=== PATIENT | female | born 1945 | race Caucasian/White ===

== ENCOUNTER 2019-12-27 09:47 | Outpatient (CLI) | payer MEDICARE, SELFPAY ==
--- NOTE | ~2019-12-27 | MM_ITS ---
EXAMINATION: MM screening luis BI w buster HISTORY: Screening mammogram, family history of breast cancer in her mother and sister. TECHNIQUE: Craniocaudal and mediolateral oblique 3-D tomosynthesis images were obtained and synthetic 2-D images were generated. CAD analysis was submitted and interpreted. COMPARISON: 11/08/2018, 05/05/2018, 10/06/2017, 09/24/2016 BREAST PARENCHYMAL COMPOSITION: There are scattered areas of fibroglandular density. FINDINGS: There is no evidence of suspicious mass, calcification, or architectural distortion to sugg est malignancy in either breast. There has been no suspicious interval change. IMPRESSION: 1. No mammographic evidence of malignancy. 2. Recommend routine screening mammography in one year. BI-RADS Category 1: Negative Reviewed, dictated and finalized at location A.
== END 2019-12-27 09:48 | disposition home or self-care (01) ==
LOC: ANHIMG 09:51
PROVIDERS: PCP Internal Medicine; Visit Provider Student in an Organized Health Care Education/Training Program
DX: Z12.31 Encounter for screening mammogram for malignant neoplasm of breast (principal)
CPT/HCPCS: 77063; 77067

== ENCOUNTER 2020-01-10 13:18 | Outpatient (CLI) | payer MEDICARE, SELFPAY ==
--- NOTE | ~2020-01-10 | US_ITS ---
US pelvic complete 01/10/2020 13:49 Indication: Abdominal discomfort and bloating. Post hysterectomy. Procedure: High-resolution ultrasound of the pelvis. Comparison: No prior studies for comparison. Findings: Uterus and ovaries are surgically absent. No abnormal pelvic masses or fluid collections. N o free fluid. Impression: 1: Unremarkable pelvic ultrasound post hysterectomy. Reviewed, dictated and finalized at location A. Impression: 1: Unremarkable pelvic ultrasound post hysterectomy.
== END 2020-01-10 13:19 | disposition home or self-care (01) ==
PROVIDERS: PCP Internal Medicine
DX: R14.0 Abdominal distension (gaseous) (principal); R10.9 Unspecified abdominal pain
CPT/HCPCS: 76856

== ENCOUNTER 2020-04-15 14:47 | Outpatient (CLI) | payer MEDICARE, SELFPAY ==
--- NOTE | ~2020-04-15 | XR_ITS ---
EXAMINATION: XR hand BI arthritis min 3V EXAM DATE: 04/15/2020 15:21 INDICATION: Bilateral hand pain, osteoarthritis. TECHNIQUE: Right hand frontal, lateral and oblique projections obtained and reviewed. Left hand fron farhan, lateral and oblique projections obtained and reviewed. Catchers projection of both hands. There is no prior study for comparison. FINDINGS: There is mild to moderate polyarticular bilateral distal interphalangeal and right 4th prox imal interphalangeal joint primary osteoarthritis. Otherwise mild polyarticular osteoarthritis. 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 There are no bony erosions identified. There are no acute fractures or dislocations identified. There is no subcutaneous gas. The soft tis fran is unremarkable. There are no radiopaque foreign bodies. 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 Reviewed, dictated and finalized at location A. 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
== END 2020-04-15 14:48 | disposition home or self-care (01) ==
LOC: ANHIMG 14:52
PROVIDERS: PCP Internal Medicine; Visit Provider Plastic Surgery
DX: M19.041 Primary osteoarthritis, right hand (principal); M19.042 Primary osteoarthritis, left hand
CPT/HCPCS: 73130

== ENCOUNTER 2021-01-13 14:52 | Outpatient (CLI) | payer MEDICARE, SELFPAY ==
--- NOTE | ~2021-01-13 | DEXA_ITS ---
Bone Density Report Name: Estefany Busby Age: 75 Sex: Female Ethnicity: White Date of : 1945 Indication: postmenopausal; height loss; hysterectomy; Referring Provider: Glenda Arias Study: Bone densitometry was performed. Exam Date: January 13, 2021 Accession number: [id number] Bone Density: Region BMD T-score Z-score Classification AP Spine (L1-L4) 1.042 0.0 2.5 Normal Femoral Neck (Left) 0.802 -0.4 1.8 Normal Total Hip (Left) 0.939 0.0 1.9 Normal Total Hip Bilateral Avg 0.939 0.0 1.9 Normal Femoral Neck (Right) 0.766 -0.7 1.5 Normal Total Hip (Right) 0.938 0.0 1.9 Normal World Health Organization criteria for BMD impression classify patients as: Normal (T-score at or above -1.0), Osteopenia (T-score between -1.0 and -2.5), or Osteoporosis (T-score at or below -2.5). 10-year Fracture Risk: FRAX not reported because: All T-scores for Spine Total, Hip Total, Femoral Neck at or above -1.0 Previous Exams: Region Exam Age BMD T-score BMD Change BMD Change Date g/cm2 vs Baseline vs Previous AP Spine(L1-L4) 01/13/2021 75 1.042 0.0 -0.037(-3.4%)# 0.079(8.2%)* 10/06/2017 72 0.963 -0.8 -0.116(-10.8%) 0.066(7.4%)# 08/17/2013 68 0.896 -1.4 -0.183(-16.9%) 0.005(0.6%) 09/11/2011 66 0.891 -1.4 -0.188(-17.4%) -0.101(-10.1%) 05/23/2009 64 0.992 -0.5 -0.087(-8.1%)* 0.013(1.3%) 04/25/2007 62 0.979 -0.6 -0.100(-9.3%)* -0.019(-1.9%) 02/24/2005 59 0.998 -0.4 -0.081(-7.5%)* -0.081(-7.5%)* 02/10/2003 57 1.079 0.3 Total Hip(Left) 01/13/2021 75 0.939 0.0 -0.067(-6.7%)# 0.017(1.8%) 10/06/2017 72 0.923 -0.2 -0.084(-8.3%)# 0.024(2.6%) 09/20/2015 70 0.899 -0.4 -0.108(-10.7%) 0.021(2.4%)# 08/17/2013 68 0.877 -0.5 -0.129(-12.8%) -0.034(-3.7%)* 09/11/2011 66 0.911 -0.3 -0.095(-9.5%)# 0.000(0.0%)# 05/23/2009 64 0.911 -0.3 -0.095(-9.5%)* 0.001(0.1%) 04/25/2007 62 0.910 -0.3 -0.096(-9.6%)* -0.065(-6.7%)* 02/24/2005 59 0.975 0.3 -0.031(-3.1%)* -0.031(-3.1%)* 02/10/2003 57 1.006 0.5 Total Hip(Right) 01/13/2021 75 0.938 0.0 -0.091(-8.8%)# 0.042(4.7%)* 10/06/2017 72 0.896 -0.4 -0.133(-12.9%) 0.014(1.6%) 09/20/2015 70 0.881 -0.5 -0.147(-14.3%) -0.055(-5.8%)# 08/17/2013 68 0.936 -0.1 -0.093(-9.0%)# 0.003(0.3%) 09/11/2011 66 0.933 -0.1 -0.095(-9.3%)# 0.034(3.8%)# 05/23/2009 64 0.899 -0.4 -0.129(-12.6%) -0.029(-3.1%)* 04/25/2007 62 0.928 -0.1 -0.100(-9.7%)* -0.053(-5.4%)* 02/24/2005 59 0.981 0.3 -0.048(-4.6%)* -0.048(-4.6%)* 02/10/2003 57 1.028 0.7
--- NOTE | ~2021-01-13 | MM_ITS ---
EXAMINATION: MM screening luis BI w buster HISTORY: Screening TECHNIQUE: Craniocaudal and mediolateral oblique 3-D tomosynthesis images were obtained and synthetic 2-D images were generated. CAD analysis was submitted and interpreted. COMPARISON: Comparison to multiple prior studies sequentially, with oldest reviewed study dated 09/19. BREAST PARENCHYMAL COMPOSITION: There are scattered areas of fibroglandular density. FINDINGS: There are developing asymmetries in the left breast. The right breast is stable without lukas dence for malignancy. IMPRESSION: 1. Developing left breast asymmetries. 2. Additional mammographic views and possible breast ultrasound are recommended. BI-RADS Category 0: Incomplete: Needs additional imaging evaluation. Reviewed, dictated and finalized at location A. IMPRESSION: 1. Developing left breast asymmetries. 2. Additional mammographic views and possible breast ultrasound are recommended . BI-RADS Category 0: Incomplete: Needs additional imaging evaluation.
== END 2021-01-13 14:53 | disposition home or self-care (01) ==
LOC: ANHIMG 14:53
PROVIDERS: PCP Internal Medicine; Visit Provider Student in an Organized Health Care Education/Training Program
DX: Z12.31 Encounter for screening mammogram for malignant neoplasm of breast (principal); Z78.0 Asymptomatic menopausal state; R92.8 Other abnormal and inconclusive findings on diagnostic imaging of breast
CPT/HCPCS: 77063; 77067; 77080

== ENCOUNTER 2021-02-04 12:10 | Outpatient (CLI) | payer MEDICARE, SELFPAY ==
--- NOTE | ~2021-02-04 | MMUS_ITS ---
EXAMINATION: MM diagnostic luis LT w buster, US breast LT limited HISTORY: Left breast asymmetry on screening mammogram TECHNIQUE: Additional 3-D tomosynthesis images of the left breast were performed and synthetic 2-D im ages were generated. CAD analysis was submitted and interpreted. High resolution limited left breast ultrasound was performed. COMPARISON: 01/13/2021, 12/27/2019, 11/08/2018, 05/05/2018, 10/06/2017 BREAST PARENCHYMAL COMPOSITION: There are scattered areas of fibroglandular density. FINDINGS: MAMMOGRAPHIC FINDINGS: A subtle asymmetry persists in the middle third of the slightly outer breast 3 cm from the nipple on the craniocaudal view. ULTRASOUND: There is an 8 mm x 4 mm oval, circumscribed, parallel, hypoechoic mass with no posterior features or internal vascularity at the 2:00 location 3 cm from the nipple. An 8 mm x 4 mm mass with similar sono graphic features is seen at the 2:00 location near the nipple. IMPRESSION: 1. Probably benign left breast masses. 2. Recommend 6 month follow-up left diagnostic mammogram and ultrasound. BI-RADS category 3, probably benign findings. Reviewed, dictated and finalized at location A. IMPRESSION: 1. Probably benign left breast masses. 2. Recommend 6 month follow-up left diagnostic mammogram and ultrasound. BI-RADS category 3, probably benign findings.
== END 2021-02-04 12:11 | disposition home or self-care (01) ==
LOC: ANHIMG 12:11
PROVIDERS: PCP Internal Medicine; Visit Provider Student in an Organized Health Care Education/Training Program
DX: R92.8 Other abnormal and inconclusive findings on diagnostic imaging of breast (principal)
CPT/HCPCS: 76642; 77061; 77065; G0279

== ENCOUNTER → 2021-09-04 14:05 | Outpatient (CLI) | payer MEDICARE, SELFPAY ==
--- NOTE | ~2021-09-04 | XR_ITS ---
EXAMINATION: XR hip RT min 2V DATE: 09/04/2021 14:42 INDICATION: Right hip pain. TECHNIQUE: 2 views of right hip were obtained. COMPARISON: Right hip radiographs 09/20/2014 FINDINGS: Bone alignment is normal. There is severe lumbar spondylosis. No fracture. There is severe right hip osteoarthritis. IMPRESSION: 1. Severe right hip osteoarthritis. Reviewed, dictated and finalized at location A.
== END ==
PROVIDERS: PCP Internal Medicine; Visit Provider Nurse Practitioner
DX: M16.11 Unilateral primary osteoarthritis, right hip (principal)
CPT/HCPCS: 73502

== ENCOUNTER 2022-07-10 10:25 | Outpatient (CLI) | payer MEDICARE, SELFPAY ==
--- NOTE | ~2022-07-10 | XR_ITS ---
Supine and upright views of the abdomen Clinical history: Bloating Findings: Bowel gas pattern is nonspecific. No evidence for obstruction or free air. No abnormal mass lesion or calcification is seen. Degenerative change of the lumbar spine and bilateral hips noted. Impression: Nonspecific bowel gas pattern. Reviewed, dictated and finalized at [facility]. NCE WRITER Impression: Nonspecific bowel gas pattern.
== END 2022-07-10 10:26 | disposition home or self-care (01) ==
PROVIDERS: PCP Internal Medicine; Visit Provider Nurse Practitioner Family
DX: R19.5 Other fecal abnormalities (principal); R19.4 Change in bowel habit; K21.9 Gastro-esophageal reflux disease without esophagitis; K92.89 Other specified diseases of the digestive system
CPT/HCPCS: 74018

== ENCOUNTER 2023-09-06 11:07 | Outpatient (CLI) | payer MEDICARE, SELFPAY ==
--- NOTE | ~2023-09-06 | US_ITS ---
EXAMINATION: US venous doppler LE RT DATE: 09/06/2023 11:44 INDICATION: Right lower limb pain and swelling TECHNIQUE: Grayscale ultrasound images without and with compression and Doppler ultrasound images of the right lower extremity veins were obtained. COMPARISON: None. FINDINGS: The visualized portions of right common femoral vein, profunda (deep) femoral vein, femoral vein, pop liteal vein, posterior tibial veins, peroneal veins, gastrocnemius vein and greater saphenous vein ou tflow are patent. IMPRESSION: 1. No deep venous thrombosis in the right lower limb. Reviewed, dictated and finalized at location A.
== END 2023-09-06 11:08 | disposition home or self-care (01) ==
LOC: ANHIMG 11:10
PROVIDERS: PCP Family Medicine; Visit Provider Physician Assistant Surgical
DX: R22.41 Localized swelling, mass and lump, right lower limb (principal)
CPT/HCPCS: 93971

== ENCOUNTER 2023-11-22 08:52 | Outpatient (CLI) | payer MEDICARE, SELFPAY ==
--- NOTE | ~2023-11-22 | DEXA_ITS ---
Bone Density Report Name: CHICHO AJ Age: 78 Sex: Female Ethnicity: White Date of : 1945 Indication: postmenopausal; screening for osteoporosis; height loss; history of glucocorticoids; hysterectomy; Referring Provider: MICHAEL ZAMBRANO Study: Bone densitometry was performed. Exam Date: November 22, 2023 Accession number: [id number] Bone Density: Region BMD T-score Z-score Classification AP Spine(L1-L4) 1.091 0.4 3.1 Normal Femoral Neck (Left) 0.796 -0.5 1.9 Normal Total Hip (Left) 1.000 0.5 2.6 Normal Femoral Neck (Right) 0.741 -1.0 1.4 Normal Total Hip (Right) 1.025 0.7 2.8 Normal Total Hip Mean 1.013 0.6 2.7 Normal World Health Organization criteria for BMD impression classify patients as: Normal (T-score at or above -1.0), Osteopenia (T-score between -1.0 and -2.5), or Osteoporosis (T-score at or below -2.5). 10-year Fracture Risk: FRAX not reported because: All T-scores for Spine Total, Hip Total, Femoral Neck at or above -1.0 Previous Exams: Region Exam Age BMD T-score BMD Change BMD Change Date g/cm2 vs Baseline vs Previous AP Spine (L1-L4) 11/22/2023 78 1.091 0.4 0.200 (22.4%)# 0.049 (4.7%)* 01/13/2021 75 1.042 0.0 0.151 (16.9%)# 0.079 (8.2%)* 10/06/2017 72 0.963 -0.8 0.072 (8.0%)# 0.072 (8.0%)# 09/11/2011 66 0.891 -1.4 Total Hip(Left) 11/22/2023 78 1.000 0.5 0.089 (9.7%)# 0.060 (6.4%)* 01/13/2021 75 0.939 0.0 0.028 (3.1%)# 0.017 (1.8%) 10/06/2017 72 0.923 -0.2 0.011 (1.3%)# 0.024 (2.6%) 09/20/2015 70 0.899 -0.4 -0.012 (-1.4%) -0.012 (-1.4%) 09/11/2011 66 0.911 -0.3 Total Hip(Right) 11/22/2023 78 1.025 0.7 0.092 (9.9%)# 0.088 (9.4%)* 01/13/2021 75 0.938 0.0 0.005 (0.5%)# 0.042 (4.7%)* 10/06/2017 72 0.896 -0.4 -0.038 (-4.0%) 0.014 (1.6%) 09/20/2015 70 0.881 -0.5 -0.052 (-5.6%) -0.052 (-5.6%) 09/11/2011 66 0.933 -0.1 *Denotes significance at 95% confidence level, LSC for AP Spine = 0.022 g/cm2, LSC for Total Hip = 0.027 g/cm2 # Denotes dissimilar scan types or analysis methods Clinical Information Provided by Patient: Has taken Glucocorticoids Has used the following medications: Vitamin D, Calcium Has the following medical conditions: Hysterectomy Patient maximum height was 66.0 Onset of menses at age 8 Number of children 2 Impression: The patient has normal bone mass. The patient has risk factors,
== END 2023-11-22 08:53 | disposition home or self-care (01) ==
LOC: ANHIMG 08:53
PROVIDERS: PCP Family Medicine; Visit Provider Family Medicine
DX: Z13.820 Encounter for screening for osteoporosis (principal); Z78.0 Asymptomatic menopausal state
CPT/HCPCS: 77080

== ENCOUNTER 2024-11-09 12:30 | Outpatient (RCR) | payer MEDICARE, SELFPAY ==
--- NOTE | 2024-10-03 14:11 | OPREHPOC ---
Outpatient Therapy Plan of Care This is a Multidisciplinary Plan of Care that may contain components documented by all disciplines (PT, OT, and ST.) PT Problem 1 PT Problem #1 Knowledge Deficit PT Goal 1 Goal / Goal Update *independent with HEP Target Visit 8 PT Problem 2 PT Problem #2 Impaired Strength PT Goal 1 Goal / Goal Update increase hip strength, to improve stability to hip joint and improve gait pattern 1* R & L hip extension strength of 4+/5 2* R & L hip abduction strength of 4+/5 3* increase 2 minute walking test distance to 450' Target Visit 8 PT Problem 3 PT Problem #3 Impaired Flexibility PT Goal 1 Goal / Goal Update *increase anterior hip-quad flexibility to decrease pull on anterior hip prone knee flexion 1* R 110' 2* L 115' Target Visit 8
--- NOTE | 2024-10-03 14:11 | PTOPEVAL1 ---
Assessment and note entered by Elizabeth Hernandez, PT Evaluation Information Assessment Status Evaluation ICD-10 Condition Codes (PT) Pain in right hip M25.551 Onset August 2024 Subjective Information more pain in hips after vacation and walking more; bilateral hip pain, R > L x rays ---severe degenerative changes in both hips history of chronic back pain and surgery; go to chiropractor for back traction, usually go about 1x/month activity: started using the wheeled walker a few weeks ago in the house PRN and hip pain is less; independent with light home and self care tasks; does shopping, drives; have basement at home, do not go down there; Reported Pain Level Pain Score 4: Self Report Additional Pain Score Comments pain range of the past week 2-12/10; R anterior hip /groin and L lateral hip and buttocks areas pain in both hips R > L increase pain: walking/standing activity 2 hours; decrease pain: biofreeze, sit/rest, tylenol; heating pad can sleep through the night; problems getting comfortable to fall asleep, tend to sleep on her side with pillow between legs Assessment PT Clinical Summary Estefany has the diagnosis of R hip pain. She also has L hip pain and chronic back pain. She is active and walking and standing are now limited due to more hip pain. Self assessment with LE functional scale rating of 58% limitation in activity level. xray report states severe degenerative changes in both hips. The dr has talked with her about THR, but she wants to hold off on surgery until winter time. With the evaluation: she has decreased strength of bilateral hip abduction and extension muscles; decreased flexibility of anterior hip-quads muscles with prone knee flexion and 2 minute walking test distance of 400'; she does not do any leg exercises at home. Skilled PT services are indicated for modalities PRN to decrease pain; therapeutic exercises to increase strength and flexibility of hips and education for HEP. Plan of Care Interventions Electrical Stimulation,Hot Pack/Cold Pack,Manual Therapy,Neuro Re-education,Patient/Caregiver Education,Therapeutic Activities,Therapeutic Exercise,Ultrasound,Other Other Interventions taping PT Services Indicated Yes Treatment Frequency and 1-2x/wk for 8 visits Duration These treatments will address the objective and functional deficits as defined above. The patient will be advanced safely and appropriately in order for the patient to progress towards his/her prior level of function. Additional exercises will be introduced and as well as a comprehensive home exercise program upon discharge, if needed, ?to ensure carryover of functional gains achieved in the clinic. This treatment plan has been reviewed and agreement upon by the patient.
--- NOTE | 2024-11-09 13:02 | OPREHPOC ---
Outpatient Therapy Plan of Care This is a Multidisciplinary Plan of Care that may contain components documented by all disciplines (PT, OT, and ST.) PT Problem 1 PT Problem #1 Knowledge Deficit PT Goal 1 Goal / Goal Update *independent with HEP 11-09-24 d/c goal met Target Visit 8 Progress Met PT Problem 2 PT Problem #2 Impaired Strength PT Goal 1 Goal / Goal Update increase hip strength, to improve stability to hip joint and improve gait pattern 1* R & L hip extension strength of 4+/5 2* R & L hip abduction strength of 4+/5 3* increase 2 minute walking test distance to 450' 11-09-24 d/c goals met Target Visit 8 Progress Met PT Problem 3 PT Problem #3 Impaired Flexibility PT Goal 1 Goal / Goal Update *increase anterior hip-quad flexibility to decrease pull on anterior hip prone knee flexion 1* R 110' 2* L 115' 11-09-24 d/c goals met Target Visit 8 Progress Met
--- NOTE | 2024-11-09 13:02 | PTOPDC ---
Assessment and note entered by Elizabeth Hernandez, PT Assessment Status Discharge ICD-10 Condition Codes (PT) Pain in right hip M25.551,Pain in left hip M25.552 Onset August 2024 Subjective Information am stronger, doing the exercises at home; have Dr appt in December and going to schedule the THR then; use cane or rollator with walking; Reported Pain Level Pain Score Self Report Additional Pain Score Comments pain range in the past week - 11/09 Assessment PT Clinical Summary Estefany has received 8 PT sessions. Compared to the initial evaluation: pain from 06-10 to -11/09; LE functional scale rating from 58 to 69% limitation in activity level; increase strength of R and L hips; increase flexibility of R and L anterior hip-quad; 2 minute walking test distance from 400' to 470'; education for HEP. The goals were achieved. Discharge PT. She is to continue with her HEP and walking as tolerated with hip pain. Plan of Care PT Services Indicated No
--- NOTE | 2024-11-09 13:04 | PCPTNOTE ---
pt requested a shorter session today due to having a refrigerator repair man scheduled to come to her house.
== END 2024-11-09 14:48 | disposition home or self-care (01) ==
LOC: ANHPT 12:30
PROVIDERS: PCP Family Medicine; Visit Provider Orthopaedic Surgery
DX: M25.551 Pain in right hip (principal)
CPT/HCPCS: 97110; 97140; 97161; 97530

== ENCOUNTER 2025-02-15 09:57 | Outpatient (CLI) | payer MEDICARE, SELFPAY ==
--- OUTSIDE RECORDS SUMMARY | 2008-11-21 03:30 | XMS_ITS | Continuity of Care Document ---
Author Organization [facility] Address [address] [place] [address] Phone Care Team Providers Care Mental Health Program Specialist Name Role Phone Trevorsonu Medardo Unavailable Unavailable Procedures Procedure Date Office/outpatient Visit, Est No Script Office/outpatient Visit, Est Eye Exam Established Pt Advance Directives Directive Yes / No Effective Date File Name No Information Encounters Encounter Description Practice Location Reason(s) For Visit Diagnoses Date Provider Providers Copied on Encounter Office/outpat ient Visit, Est [facility], [address] [place] [address] [address], [place], [place], [id number], [place] tel:[phone] SEC [facility] No Information 2 9 Rim[address] Batres. [facility] [address] , [address], [place], [place], [facility], [place]. tel:[phone] Office/outpat ient Visit, Est [facility], [address], [place], [place], [id number], [place] tel:[phone] [facility] No Information [address] [facility] [address], [place], [place], [facility], [place]. tel:[phone] [facility], [address], [place], [place], [id number], [place] tel:[phone] [facility] No Information [address] , [address], [place], [address], [place]. tel:[phone] Family History Family Member Type Diagnosis Age At Onset No Information Payers Payer name Insurance type Covered republican ID Authoriza tion(s) [place] [id number] Social History Type Description Quantity Date Captured [...]
--- OUTSIDE RECORDS SUMMARY | 2025-01-15 10:50 | XMS_ITS ---
Author Organization [facility] Address [address] [place], [place] [id number] Care Team Providers Care Cream Cheese Maker Name Role Phone PERNELL MARTE Unavailable [phone] Terrance Suárez Unavailable Unavailable Allergies No Known [...] Delayed Release Oral Capsule [Nexium] *Reorder from [facility] for eRx and Interaction Alerts* 017 Active cyclosporine 0.5 MG/ML Ophthalmic Suspension [Restasis] cyclosporine 0.5 MG/ML Ophthalmic Suspension [Restasis]Original Medicationcyclosporine 0.5 MG/ML Ophthalmic Suspension [Restasis] *Reorder from [facility] for eRx and Interaction Alerts* 017 Active ciclopirox 80 MG/ML Topical Solution ciclopirox 80 MG/ML Topical SolutionOriginal Medicationciclopirox 80 MG/ML Topical Solution *Reorder from [facility] for eRx and Interaction Alerts* 017 Active Bifidobacterium infantis 4 MG Oral Capsule [Align] ORAL Bifidobacterium infantis 4 M G Oral Capsule [Align]Original MedicationBifidobacterium infantis 4 MG Oral Capsule [Align] *Reorder from [facility] for eRx and Interaction Alerts* 017 Active aspirin 81 MG Delayed Release Oral Tablet ORAL aspirin 81 MG Delayed Releas e Oral TabletOriginal Medicationaspirin 81 MG Delayed Release Oral Tablet *Reorder from [facility] for eRx and Interaction Alerts* 017 Active Progesterone 200 MG Oral Capsule ORAL progesterone 200 MG Oral CapsuleOriginal Medicationprogesterone 200 MG Oral Capsule *Reorder from [facility] for eRx and Interaction Alerts* 017 Active hydroCHLOROthiazide 12.5 MG Oral Capsule ORAL hydrochlorothiazide 12.5 MG Oral CapsuleOriginal Medicationhydrochlorothiazide 12.5 MG Oral Capsule *Reorder from [facility] for eRx and Interaction Alerts* 017 Active Losartan Potassium 25 MG Oral Tablet ORAL losartan potassium 25 MG Ora l TabletOriginal Medicationlosartan potassium 25 MG Oral Tablet *Reorder from [facility] for eRx and Interaction Alerts* 017 Active Pravastatin Sodium 20 MG Oral Tablet ORAL pravastatin sodium 20 MG Ora l TabletOriginal Medicationpravastatin sodium 20 MG Oral Tablet *Reorder from [facility] for eRx and Interaction Alerts* 017 Active Estradiol 2 MG Oral Tablet ORAL estradiol 2 MG Oral TabletOriginal Medicationestradiol 2 MG Oral Tablet *Reorder from [facility] for eRx and Interaction Alerts* 017 Active Ciclopirox 8 % 1 application Externally Once a day to toenails.; Duration: 30 days Remove medication once a week with rubbing alcohol. one bottle, 6.6mL or similar. 025 2025 Active olopatadine 2 MG/ML Ophthalmic Solution [Pataday] olopatadine 2 MG/ML Ophthalm ic Solution []Original Medicationolopatadine 2 MG/ML Ophthalmic Solution [] *Reorder from [facility] for eRx and Interaction Alerts* 017 Active liothyronine sodium 0.005 MG Oral Tablet ORAL liothyronine sodium 0.005 MG Oral TabletOriginal Medicationliothyronine sodium 0.005 MG Oral Tablet *Reorder from [facility] for eRx and Interaction Alerts* 017 Active Vital Signs Height 64.00 in 01/15/2025 Weight 170 lbs 01/15/2025 BMI 29.18 kg/m2 01/15/2025 Height-cm 162.56 cm 01/15/2025 Weight-kg 77.11 kg 01/15/2025 Encounters Encounter Location Date Provider Diagnosis [facility] [address] [place], [place] [id number] 01/15/2025 PERNELL MARTE Idiopathic gout, rig ht [...] Date Stop Date Notes Ciclopirox 8 % 1 application Asset Coordinator ally Once a day to toenails.; Duration: 30 [...] lab work over the phone (Uric Acid) Progress Notes * CHIKA AJNE SDOB:1945 (79 yo F)Acc No.[id number]:01/15/2025 Progress Notes Patient: CHICHO ARANA Provider: Kenyon Marte DPM :1945 A ge:79 Y S ex:Female Date:01/15/2025 Address:[address] [place] [address] Subjective: * Chief Complaints: * 1 . The patient had a sudden onset of a red, hot, swollen, and painful right great toe joint. No history of accident or injury. She has had similar pain and redness in her finger. She denies any history of gout, but does take a diuretic. * HPI: H PI: New Complaint Kenneth corona was last seen in our practice over three years ago. , Patient complains of an issue to right foot with a possible bunion. patient states it was painful. , Duration of problem is 1 month., MA: IR. * ROS: G eneral / Constitutional: Patient denies c hills, fever, weakness, night sweats. M usculoskeletal: Patient denies c hildhood foot problems, weakness. P atvlad complains of j oint pain. P eripheral Vascular: Patient denies u lceration of feet, cold extremities. ? S kin: Patient denies u lcerations, discoloration. ? N eurologic: Patient denies b alance difficulty, confusion, difficulty speaking, dizziness. * Medical History: M edical History Verified. * Family History: F ather: PRN - Father: :: Diabetes,,known absent . M other: PRN - Mother: :: Cancer,,known absent . S ister: SIB - Sister: . * Social History: M igrated Social History: M igrated Social History: Smoking Status : Never smoked , Alcohol intake : , History of tobacco use :. * Medications: T aking Estradiol 2 MG Oral Tablet ORAL , Notes to Pharmacist: estradiol 2 MG Oral TabletOriginal Medicationestradiol 2 MG Oral Tablet *Reorder from [facility] for eRx and Interaction Alerts*, Taking Pravastatin Sodium 20 MG Oral Tablet ORAL , Notes to Pharmacist: pravastatin sodium 20 MG Oral TabletOriginal Medicationpravastatin sodium 20 MG Oral Tablet *Reorder from [facility] for eRx and Interaction Alerts*, Taking Losartan Potassium 25 MG Oral Tablet ORAL , Notes to Pharmacist: losartan potassium 25 MG Oral TabletOriginal Medicationlosartan potassium 25 MG Oral Tablet *Reorder from [facility] for eRx and Interaction Alerts*, Taking hydroCHLOROthiazide 12.5 MG Oral Capsule ORAL , Notes to Pharmacist: hydrochlorothiazide 12.5 MG Oral CapsuleOriginal Medicationhydrochlorothiazide 12.5 MG Oral Capsule *Reorder from [facility] for eRx and Interaction Alerts*, Taking Progesterone 200 MG Oral Capsule ORAL , Notes to Pharmacist: progesterone 200 MG Oral CapsuleOriginal Medicationprogesterone 200 MG Oral Capsule *Reorder from [facility] for eRx and Interaction Alerts*, Taking aspirin 81 MG Delayed Release Oral Tablet ORAL , Notes to Pharmacist: aspirin 81 MG Delayed Release Oral TabletOriginal Medicationaspirin 81 MG Delayed Release Oral Tablet *Reorder from [facility] for eRx and Interaction Alerts*, Taking Bifidobacterium infantis 4 MG Oral Capsule [Align] ORAL , Notes to Pharmacist: Bifidobacterium infantis 4 MG Oral Capsule [Align]Original MedicationBifidobacterium infantis 4 MG Oral Capsule [Align] *Reorder from [facility] for eRx and Interaction Alerts*, Taking ciclopirox 80 MG/ML Topical Solution , Notes to Pharmacist: ciclopirox 80 MG/ML Topical SolutionOriginal Medicationciclopirox 80 MG/ML Topical Solution *Reorder from [facility] for eRx and Interaction Alerts*, Taking cyclosporine 0.5 MG/ML Ophthalmic Suspension [Restasis] , Notes to Pharmacist: cyclosporine 0.5 MG/ML Ophthalmic Suspension [Restasis]Original Medicationcyclosporine 0.5 MG/ML Ophthalmic Suspension [Restasis] *Reorder from [facility] for eRx and Interaction Alerts*, Taking esomeprazole 40 MG Delayed Release Oral Capsule [Nexium] ORAL , Notes to Pharmacist: esomeprazole 40 MG Delayed Release Oral Capsule [Nexium]Original Medicationesomeprazole 40 MG Delayed Release Oral Capsule [Nexium] *Reorder from [facility] for eRx and Interaction Alerts*, Taking liothyronine sodium 0.005 MG Oral Tablet ORAL , Notes to Pharmacist: liothyronine sodium 0.005 MG Oral TabletOriginal Medicationliothyronine sodium 0.005 MG Oral Tablet *Reorder from [facility] for eRx and Interaction Alerts*, Taking olopatadine 2 MG/ML Ophthalmic Solution [Pataday] , Notes to Pharmacist: olopatadine 2 MG/ML Ophthalmic Solution [Pataday]Original Medicationolopatadine 2 MG/ML Ophthalmic Solution [Pataday] *Reorder from [facility] for eRx and Interaction Alerts*, Medication List reviewed and reconciled with the patient * Allergies: N .K.D.A. Objective: * Vitals: W t: 170 lbs, [...] lab work over the phone (Uric Acid)) * Billing Information: * Visit Code: 70762 Office Visit, New Pt., Level 3. * Procedure Codes: 88441 X-RAY EXAM OF FOOT. Modifiers: RT * Electronic signature of PERNELL MARTE DPM on 02/15/2025 at 11:21 AM CDT Sign off status: Pending * Provider: Kenyon Marte DPM Date: 0 01/15/2025 Generated for Ferny young/Taya/Kurtisitting on: 1 11:21 AM CDT History and Physical Notes * HPI (History [...]
--- OUTSIDE RECORDS SUMMARY | 2025-02-15 11:20 | XMS_ITS | Patient Health Record ---
Author Organization [facility] Address [address] [place], [place] [id number] Care Team Providers Care Cotton Ginner Helper Name Role Phone PERNELL MARTE Unavailable [phone] Terrance Suárez Unavailable Unavailable Allergies No Known Allergies Reason For Referral No Information Medications Medication SIG (Take, Route, Frequency, Duration) Notes Start Date End Date Status esomeprazole 40 MG Delayed Release Oral Capsule [Nexium] ORAL esomeprazole 40 MG Delayed Release Oral Capsule [Nexium]Original Medicationesomeprazole 40 MG Delayed Release Oral Capsule [Nexium] *Reorder from [facility] for eRx and Interaction Alerts* 017 Active cyclosporine 0.5 MG/ML Ophthalmic Suspension [Restasis] cyclosporine 0.5 MG/ML Ophthalmic Suspension [Restasis]Original Medicationcyclosporine 0.5 MG/ML Ophthalmic Suspension [Restasis] *Reorder from [facility] for eRx and Interaction Alerts* 017 Active ciclopirox 80 MG/ML Topical Solution ciclopirox 80 MG/ML Topical SolutionOriginal Medicationciclopirox 80 MG/ML Topical Solution *Reorder from [facility] for eRx and Interaction Alerts* 017 Active Bifidobacterium infantis 4 MG Oral Capsule [Align] ORAL Bifidobacterium infantis 4 M G Oral Capsule [Align]Original MedicationBifidobacterium infantis 4 MG Oral Capsule [Align] *Reorder from [facility] for eRx and Interaction Alerts* 017 Active aspirin 81 MG Delayed Release Oral Tablet ORAL aspirin 81 MG Delayed Releas e Oral TabletOriginal Medicationaspirin 81 MG Delayed Release Oral Tablet *Reorder from [facility] for eRx and Interaction Alerts* 017 Active Progesterone 200 MG Oral Capsule ORAL progesterone 200 MG Oral CapsuleOriginal Medicationprogesterone 200 MG Oral Capsule *Reorder from [facility] for eRx and Interaction Alerts* 017 Active hydroCHLOROthiazide 12.5 MG Oral Capsule ORAL hydrochlorothiazide 12.5 MG Oral CapsuleOriginal Medicationhydrochlorothiazide 12.5 MG Oral Capsule *Reorder from [facility] for eRx and Interaction Alerts* 017 Active Ciclopirox 8 % 1 application Externally Once a day to toenails.; Duration: 30 days Remove medication once a week with rubbing alcohol. one bottle, 6.6mL or similar. 025 2025 Active Losartan Potassium 25 MG Oral Tablet ORAL losartan potassium 25 MG Ora l TabletOriginal Medicationlosartan potassium 25 MG Oral Tablet *Reorder from [facility] for eRx and Interaction Alerts* 017 Active Pravastatin Sodium 20 MG Oral Tablet ORAL pravastatin sodium 20 MG Ora l TabletOriginal Medicationpravastatin sodium 20 MG Oral Tablet *Reorder from [facility] for eRx and Interaction Alerts* 017 Active Estradiol 2 MG Oral Tablet ORAL estradiol 2 MG Oral TabletOriginal Medicationestradiol 2 MG Oral Tablet *Reorder from [facility] for eRx and Interaction Alerts* 017 Active olopatadine 2 MG/ML Ophthalmic Solution [] olopatadine 2 MG/ML Ophthalm ic Solution []Original Medicationolopatadine 2 MG/ML Ophthalmic Solution [] *Reorder from [facility] for eRx and Interaction Alerts* 017 Active liothyronine sodium 0.005 MG Oral Tablet ORAL liothyronine sodium 0.005 MG Oral TabletOriginal Medicationliothyronine sodium 0.005 MG Oral Tablet *Reorder from [facility] for eRx and Interaction Alerts* 017 Active Vital Signs Height-cm 162.56 cm 01/15/2025 Weight-kg 77.11 kg 01/15/2025 Height 64.00 in 01/15/2025 Weight 170 lbs 01/15/2025 BMI 29.18 kg/m2 01/15/2025 Encounters Encounter Location Date Provider Diagnosis [facility] [address] [place], [place] [id number] 01/15/2025 PERNELL MARTE Idiopathic gout, rig ht [...] foot (ICD-10 - M79.671) Plan Of Treatment Pending Test Test Name Order Date Uric Acid, Serum 01/15/2025 Insurance Providers Payer Name Payer Address Payer Phone Subscriber Number Group Number Insured Name Patient Relationship to Insured Coverage Start Date Coverage End Date [employer] [address] [place] [phone] [id number] CHICHO AJ Self - patient is the insured
--- OUTSIDE RECORDS SUMMARY | 2025-02-15 11:20 | XMS_ITS | Encounter Summary ---
Author Organization [facility] Address [address] [facility] [place] [address] Care Team Providers Care Partridge Farmer Name Role Phone Terrance Suárez MD Primary Care Provider Unavail able Tray Teresa DO Primary Care Provider [phone] Luther Gilmore MD Primary Care Provider Encounter Details Date Type Department Care Team (Late Contact Info) Description 06/22/2018 Lab Requisition [facility] Care DermPath Lab [address] [facility], [place] [address] Faheem Gaines MD [address] [place] [address] Social History Tobacco Use Types Packs/Day Years Used Date Smoking Tobacco: Never Smokeless Tobacco: Never Alcohol Use Standard Drinks/Week Comments No 0 (1 standard drink = 0.6 oz pur e alcohol) Comments No Sex and Gender Information Value Date Recorded Sex Assigned at Not on file Legal Sex Female 6:23 AM PLASMA CENTER TECHNICIAN Gender Identity Not on file Sexual Orientation Not on file documented as of this encounter Plan of Treatment Upcoming Encounters Date Type Department Care Team (Late Contact Info) Description 03/20/2025 1:00 PM PLASMA CENTER TECHNICIAN Office Visit [facility] - HORSE SHOW MANAGER [address] [place] [address] Vipul Arteaga Che, MD [address] [place] [address] documented as of this encounter Procedures Procedure Name Priority Date/Time Associated Diagnosis Comments DERMATOPATHOLOGY Routine 06/21/2018 12:0 0 AM PLASMA CENTER TECHNICIAN documented in this encounter Results * DERMATOPATHOLOGY (06/21/2018 12:00 AM PLASMA CENTER TECHNICIAN) Case Report Dermatopathology Report Case: [id number] Authorizing Provider: Faheem Gaines MD Collected: 06/21/2018 12:00 AM Pathologist: Zay Levine MD Received: 06/22/2018 12:11 PM Specimen: Skin, floor of left nares 9 4:21 PM [facility] DERMATOPATHOLOGY LABORATORY Final Diagnosis Specimen A. SKIN, floor of left nares: BENIGN VERRUCOUS KERATOSIS (L82.1) 9 4:21 PM [facility] DERMATOPATHOLOGY LABORATORY at [address] [facility] Clinical History R/O ISK vs other neoplasm. 9 4:21 PM [facility] DERMATOPATHOLOGY LABORATORY Gross Description Specimen A: Received is one formalin filled container labeled with the patient's name and designated floor of left nares. The specimen consists of a shave biopsy measuring 4x3x1 mm. Jar 0. 9 4:21 PM [facility] DERMATOPATHOLOGY LABORATORY Microscopic Description Specimen A. SKIN, floor of left nares: Sections show hyperkeratosis, papillomatosis, hypergranulosis, and acanthosis. These histological findings can be seen in a verruca vulgaris or a seborrheic keratosis. 9 4:21 PM [facility] DERMATOPATHOLOGY LABORATORY Disclaimer An external and internal positive and negative controls are appropriate for the histochemical, immunohistochemical and immunofluorescence stain(s) in this case (if any), except where stated explicitly. The performance characteristics of the stain(s) cited in this report were developed and its performance characteristic determined by the Dermatopathology Laboratory at [facility], directed by Dr. Miguel Levine. These tests need not be, and therefore are not, approved by the [place] Food and Drug Administration. The tests are used for clinical purposes. Billing Codes Specimen Charges Stain Charges 86928 1 9 4:21 PM PLASMA CENTER TECHNICIAN DERMATOPATHOLOGY LABORATORY Embedded Images 9 4:21 PM PLASMA CENTER TECHNICIAN DERMATOPATHOLOGY LABORATORY Pathology/Cytolog y TISSUE SPECIMEN FROM SKIN / Unknown 06/21/2018 06/22/2018 12:11 PM PLASMA CENTER TECHNICIAN Faheem Gaines MD LAB - PATHOLOGY/CYTOLOGY ORD ERABLES Final Result DERMATOPATHOLOGY LABORATORY [facility] - Department of Dermatology [address] [place] [address], 5th Floor Lab [address] [phone] documented in this encounter Visit Diagnoses Not on filedocumented in this encounter Care Teams Partridge Farmer Relationship Specialty Start Date End Date Terrance Suárez MD PCP - General 08/13/17 12/26/18 Tray Teresa DO [address] [place], [place] [id number] PCP - General 12/27/18 09/13/23 Luther Gilmore MD [address] [place], [place] [id number] PCP - General Family Medicine 09/14/23 documented as of this encounter
--- OUTSIDE RECORDS SUMMARY | 2025-02-15 11:20 | XMS_ITS | Encounter Summary ---
Author Organization [facility] Address [facility] [place] [address] Care Team Providers Care Automotive Window Tinter Name Role Phone Luther Gilmore MD Primary Care Provider [phone] Encounter Details Date Type Department Care Team (Late st Contact Info) Description 02/07/2025 Results Follow-Up [facility] - BUSINESS MACHINE MECHANIC [address], [facility] [address] [place] [address] Vipul Arteaga Che, MD [address] [facility] [address] [place] [address] Social History Tobacco Use Types Packs/Day Years Used Date Smoking Tobacco: Never Smokeless Tobacco: Never Alcohol Use Standard Drinks/Week Comments No 0 (1 standard drink = 0.6 oz pur e alcohol) PHQ-2 Answer Date Recorded Patient Health Questionnaire-2 Score 0 11/21/2024 Comments No Sex and Gender Information Value Date Recorded Sex Assigned at Not on file Legal Sex Female 6:23 AM TOOTH CUTTER CONTACT WHEEL Gender Identity Not on file Sexual Orientation Not on file documented as of this encounter Progress Notes * Vipul Arteaga Che, MD - 02/07/2025 7:11 AM CDT Culture is positive, but awaiting sensitivities before prescribing medications. Allergies: -- Cephalexin -- Rash -- Can use cefdinir -- Lactose -- Rash -- Augmentin -- Diarrhea -- Lactose -- Rash -- Sulfamethoxazole W-Trimethoprim -- Rash documented in this encounter Plan of Treatment Upcoming Encounters Date Type Department Care Team (Late st Contact Info) Description 03/20/2025 1:00 PM TOOTH CUTTER CONTACT WHEEL Office Visit [facility] - BUSINESS MACHINE MECHANIC [address], [facility] [address] [place] [address] Vipul Arteaga Che, MD [address] [facility] [address] [place] [address] documented as of this encounter Visit Diagnoses Not on filedocumented in this encounter Care Teams Automotive Window Tinter Relationship Specialty Start Date End Date Luther Gilmore MD [address] [place] [address] PCP - General Family Medicine 09/14/23 documented as of this encounter
--- OUTSIDE RECORDS SUMMARY | 2025-02-15 11:20 | XMS_ITS | Encounter Summary ---
Author Organization [facility] Address [address] [facility] [place] [address] Care Team Providers Care Special Assets Officer Name Role Phone Tray Teresa Primary Care Provider [phone] Luther Gilmore MD Primary Care Provider [phone] Encounter Details Date Type Department Care Team (Late Contact Info) Description 02/05/2022 Lab Requisition [facility] Care DermPath Lab [address] [facility] [place] [address] Faheem Gaines MD [address] [place] [address] Social History Tobacco Use Types Packs/Day Years Used Date Smoking Tobacco: Never Smokeless Tobacco: Never Alcohol Use Standard Drinks/Week Comments No 0 (1 standard drink = 0.6 oz pur e alcohol) Comments No Sex and Gender Information Value Date Recorded Sex Assigned at Not on file Legal Sex Female 6:23 AM RETAIL STORE ASSISTANT Gender Identity Not on file Sexual Orientation Not on file documented as of this encounter Plan of Treatment Upcoming Encounters Date Type Department Care Team (Late Contact Info) Description 03/20/2025 1:00 PM RETAIL STORE ASSISTANT Office Visit [facility] - ERGONOMICS ENGINEER [address], [facility] [address] [place] [address] Vipul Arteaga Che, MD [address] [facility] [address] [place] [address] (work) documented as of this encounter Procedures Procedure Name Priority Date/Time Associated Diagnosis Comments DERMATOPATHOLOGY Routine 02/04/2022 12:0 0 AM CDT documented in this encounter Results * DERMATOPATHOLOGY (02/04/2022 12:00 AM CDT) Case Report Dermatopathology Report Case: [id number] Authorizing Provider: Faheem Gaines MD Collected: 02/04/2022 12:00 AM Ordering Location: [facility] DermPath Lab Received: 02/05/2022 02:24 PM Pathologist: Zay Levine MD Specimen: Skin, lat to right ala 4:39 PM CDT DERMATOPATHOLOGY LABORATORY Final Diagnosis Specimen A. 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 The specimen consists of a punch biopsy measuring [id number]. Jar 0. 4:39 PM CDT DERMATOPATHOLOGY LABORATORY Microscopic Description Specimen A. SKIN, lat to right ala: There are nests of cytologically bland melanocytes within the dermis that mature with depth. Sections show abundant melanin within melanophages around the superficial vascular plexus. Additional deeper sections were obtained and reviewed. 4:39 PM CDT DERMATOPATHOLOGY LABORATORY Disclaimer An external and internal positive and negative controls are appropriate for the histochemical, immunohistochemical and immunofluorescence stain(s) in this case (if any), except where stated explicitly. The performance characteristics of the stain(s) cited in this report were developed and its performance characteristic determined by the Dermatopathology Laboratory at [facility], directed by Dr. Miguel Levine. These tests need not be, and therefore are not, approved by the [place] Food and Drug Administration. The tests are used for clinical purposes. Billing Codes Specimen Charges Stain Charges 26465 1 2 4:39 PM CDT DERMATOPATHOLOGY LABORATORY Embedded Images 2 4:39 PM CDT DERMATOPATHOLOGY LABORATORY Pathology/Cytolog y TISSUE SPECIMEN FROM SKIN / Unknown 02/04/2022 02/05/2022 2:24 PM CDT Faheem Gaines MD LAB - PATHOLOGY/CYTOLOGY ORD ERABLES Final Result DERMATOPATHOLOGY LABORATORY [facility] - Department of Dermatology [facility] Medicine [address] [place] [address], [address] [phone] documented in this encounter Visit Diagnoses Not on filedocumented in this encounter Care Teams Special Assets Officer Relationship Specialty Start Date End Date Tray Teresa DO [address] [place] [address] PCP - General 12/27/18 09/13/23 Luther Gilmore MD [address] [place] [address] PCP - General Family Medicine 09/14/23 documented as of this encounter
--- OUTSIDE RECORDS SUMMARY | 2025-02-15 11:20 | XMS_ITS | Encounter Summary ---
Author Organization [facility] Address [address] [facility] [place] [address] Care Team Providers Care Medical Device Assembler Name Role Phone Tray Teresa Primary Care Provider [phone] Luther Gilmore MD Primary Care Provider Encounter Details Date Type Department Care Team (Late Contact Info) Description 09/06/2023 Lab Requisition [facility] - DermPath Lab [address] [facility] [place] [id number] Faheem Gaines MD [address] [place] [address] Social History Tobacco Use Types Packs/Day Years Used Date Smoking Tobacco: Never Smokeless Tobacco: Never Alcohol Use Standard Drinks/Week Comments No 0 (1 standard drink = 0.6 oz pur e alcohol) Comments No Sex and Gender Information Value Date Recorded Sex Assigned at Not on file Legal Sex Female 6:23 AM [employer] Gender Identity Not on file Sexual Orientation Not on file documented as of this encounter Plan of Treatment Upcoming Encounters Date Type Department Care Team (Late Contact Info) Description 03/20/2025 1:00 PM [employer] Office Visit [facility] - WOODWORKING MACHINE SETTER [address] [place] [address] Vipul Arteaga Che, MD [address] [place] [address] documented as of this encounter Procedures Procedure Name Priority Date/Time Associated Diagnosis Comments DERMATOPATHOLOGY Routine 09/01/2023 12:0 0 AM CDT documented in this encounter Results * DERMATOPATHOLOGY (09/01/2023 12:00 AM CDT) Case Report Dermatopathology Report Case: [id number] Authorizing Provider: Faheem Gaines MD Collected: 09/01/2023 12:00 AM Ordering Location: [facility] - Received: 09/06/2023 10:12 AM DermPath Lab Pathologist: Violet Guillaume MD Specimen: Skin, right antihelix farrah 12:33 PM CDT DERMATOPATHOLOGY LABORATORY Final Diagnosis Specimen A. SKIN, right antihelix farrah: TELANGIECTASES (I78.1) DERMAL FIBROSIS (L90.5) (see microscopic description and comment) 12:33 PM CDT DERMATOPATHOLOGY LABORATORY at 1233 CDT Clinical History R/O AK vs BCC vs SCC. 12:33 PM CDT DERMATOPATHOLOGY LABORATORY Gross Description Specimen A: Received is one formalin filled container labeled with the patient's name and designated right antihelix farrah. The specimen consists of a shave biopsy measuring 8x6x1,5x5x1 mm. Jar 0. 12:33 PM CDT DERMATOPATHOLOGY LABORATORY Microscopic Description Specimen A. SKIN, right antihelix farrah: The specimen is fragmented. Within the dermis there are dilated thin-walled vessels lined by a single layer of endothelium. There is focal dermal fibrosis. COMMENT: In the correct clinical setting, these histologic features can be seen in healing skin changes. A traumatized hemangioma was also considered. Clinical correlation is recommended. 12:33 PM CDT DERMATOPATHOLOGY LABORATORY Disclaimer An external and internal positive and negative controls are appropriate for the histochemical, immunohistochemical and immunofluorescence stain(s) in this case (if any), except where stated explicitly. The performance characteristics of the stain(s) cited in this report were developed and its performance characteristic determined by the Dermatopathology Laboratory at [facility], directed by Dr. Miguel Levine. These tests need not be, and therefore are not, approved by the [place] Food and Drug Administration. The tests are used for clinical purposes. Billing Codes Specimen Charges Stain Charges 17888 1 4 12:33 PM CDT DERMATOPATHOLOGY LABORATORY Embedded Images 4 12:33 PM CDT DERMATOPATHOLOGY LABORATORY Pathology/Cytolog y TISSUE SPECIMEN FROM SKIN / Unknown 09/01/2023 09/06/2023 10:12 AM CDT us Faheem Gaines MD LAB - PATHOLOGY/CYTOLOGY ORD ERABLES Final Result DERMATOPATHOLOGY LABORATORY [facility] - Department of Dermatology [address], [address] [phone] documented in this encounter Visit Diagnoses Not on filedocumented in this encounter Care Teams Medical Device Assembler Relationship Specialty Start Date End Date Tray Teresa DO [address] [place] [address] PCP - General 12/27/18 09/13/23 Luther Gilmore MD [address] [place] [address] PCP - General Family Medicine 09/14/23 documented as of this encounter
--- OUTSIDE RECORDS SUMMARY | 2025-02-15 11:20 | XMS_ITS | Clinical Summary ---
Author Organization [facility] Address [address] [place] [id number] Care Team Providers Care Mainframe Architect Name Role Phone Carmen Meneses MD Unavailable [phone] Glenda Arias MD Unavailable [phone] Luther Gilmore MD Primary Care Provider [phone] Allergies Active Allergy Reactions Criticality Noted Date Comments Amoxicillin Nausea & Vomiting Low 03/11/2021 Amoxicillin-Pot Clavulanate Diarrhea Low 08/26/19 19 Cephalexin Rash Medium 05/09/2021 Lactose Rash Medium Mold Other (See comments) 03/11/2021 Sulfamethizole Unknown 03/11/2021 Sulfamethoxazole-Trimethoprim Rash Medium 2014 Trimethoprim Unknown 03/11/2021 Medications pravastatin (PRAVACHOL) 20 mg tablet take 1 Tablet by oral route every day 0 [address] (NexIUM) 40 mg capsule take 1 capsule by oral route every day 0 0 6 Active RESTASIS 0.05 % ophthalmic emulsion 9 Active spironolactone (ALDACTONE) 100 mg tablet Take 0.5 tablets (50 mg total) by mouth daily 1 Active trimethoprim (TRIMPEX) 100 mg tablet Take 1 tablet (100 mg total) by mouth daily 2 Active ipratropium (ATROVENT) 21 mcg (0.03 %) nasal spray 2 SPRAYS IN EACH NOSTRIL NASALLY NEEDED FOR 30 DAYS 2 Active thyroid,pork (ARMOUR THYROID ORAL) Take by mouth Active progesterone (PROMETRIUM) 100 mg capsule Take 3 capsules (300 mg total) by mouth daily Active cholecalciferol (VITAMIN D-3) 18002 unit tablet Active calcium carb, gluconate/vit D2 (CALCIUM CARB,GLUCON-VIT WOODS D2 ORAL) Take by mouth Ac tive EPINEPHrine 0.3 mg/0.3 mL auto-injection syringe Inject 0.3 mL (0.3 mg total) into the muscle as instructed daily as needed 3 Active ketoconazole (NIZORAL) 2 % shampoo APPLY TOPICALLY TO THE SCALP DAILY NEEDED 4 Active loteprednol (LOTEMAX) 0.5 % drops,gel INSTILL 1 DROP IN EACH EYE TWICE DAILY FOR 1 WEEK 4 Active mirabegron ER (MYRBETRIQ) 50 mg tablet extended release 24 hr Take 1 tablet (50 mg total) by mouth daily 5 Active Miebo, PF, 100 % drops 5 Active ascorbic acid 500 mg tablet,chewable 1 tablet/chew tab (500 mg total) 9 Active meloxicam (MOBIC) 7.5 mg tablet Take 1 tablet (7.5 mg total) by mouth daily 5 Active vitamin b complex tablet daily 1 Active testosterone 1.62 % (20.25 mg/1.25 gram) gel in packet daily 9 Active spironolactone- niacinamide 5-4 % gel daily 1 Active Saccharomyces boulardii 10 billion cell capsule 2 (two) times a day 9 Active aspirin 81 mg enteric coated tablet ORAL 7 Active progesterone, micronized (progesterone, bulk,) 100 % powder 300 mg 9 Active Bifidobacterium infantis 10.5 mg (10 million cell) tablet,chewable 2 (two) times a day 9 Active estradioL (DIVIGEL) 0.25 mg (0.1 %) gel in packet daily 9 Active d-mannose 500 mg capsule 2 (two) times a day 9 Active shx-aypt-hphqh- nxjd-exh-pep-in (Digestive Enzymes,mal,lac ,inv,) 220 mg capsule daily 9 Active dilTIAZem XR 180 mg 24 hr capsule daily 9 Active ciclopirox (PENLAC) 8 % solution Active Active Problems Problem Noted Date Diagnosed Date Fibrocystic breast changes, bilateral 01/13/2022 Abnormal mammogram 04/19/2021 Arthralgia of hip 08/19/2015 Myofascial pain 08/19/2015 Pain in female pelvis 08/19/2015 Recurrent urinary tract infection 08/19/2015 Encounters Date Type Department Care Team Description 01/24/2025 Telephone [facility] Medicine Allergy and Immunology [address] [facility] Medical Office Building [address] [place] [address] Nneka Lee NP 01/23/2025 11:30 AM CDT Office Visit [facility] Medical Group Cardiology [address] [facility] [address] [place] [phone] Edy Hunter MD Preop cardiovascular exam (Primary Dx); Essential hypertension; PSVT (paroxysmal supraventricular tachycardia); Pain of both hip joints 12/25/2024 Results Follow-Up [facility] Medicine Surgery [address] [place] [phone] Merly Duncan NP Screening Mammogram Bilateral W Roque 12/22/2024 11:10 AM CDT - 12/22/2024 11:59 PM CDT Hospital Encounter [facility] - Breast Imaging [address] [place] [address] 8 [place] [address] Encounter for screening; Encounter for screening mammogram for malignant neoplasm of breast Discharge Disposition: Discharge to home or self care 12/22/2024 10:45 AM CDT Office Visit [facility] Medicine Surgery [address] [place] [phone] Merly Duncan NP Fibrocystic breast changes of both breasts (Primary Dx); Encounter for screening mammogram for malignant neoplasm of breast from Last 3 Months Immunizations Immunization Administration Dates Next Due Influenza, Quad, Adjuvantate d, Intramuscular 02/02/2021 Influenza, Quadrivalent, Hig h Dose, Preservative Free, Intrr 02/08/2019 Influenza, Trivalent, High D ose, Split, Preservative Free, Intramuscular 02/08/2019,02/04/2018,02/03/2018,02/18,02/25/2016,02/26/2015 Influenza, Trivalent, IM (MDV) 5,02/27/2015,02/14/2014,02/10,03/06/2012 Influenza, Unspecified 02/01/2020,01/31/2018 Pfizer SARS-CoV-2 Monovalent Vaccination (12+ Yrs) PURPLE 07/06/2020,06/15/2020,06/07/2020 Pneumococcal Conjugate PCV 13 12/26/2015 Tdap 12/19/2015,05/03/2001 ZOSTER LIVE 01/01/2007 ZOSTER Recombinant 01/21/2018, 8,11/21/2017,11/20 Surgical History Surgery Date Site/Laterality Comments HYSTERECTOMY BACK SURGERY BLADDER SURGERY BREAST BIOPSY 03/03/2022 Left Medical History Medical History Date Comments Hypertension Hypertension Osteoporosis Arthritis Thyroid condition Gastric reflux Hypercholesteremia Osteoarthritis Family History Medical History Relation Name Comments Diabetes Father Heart attack Father Heart disease Father Arthritis Mother Breast cancer Mother Ovarian cancer Mother Breast cancer Sister Relation Name Status Comments Father Mother Other Sister Social History Tobacco Use Types Packs/Day Years Used Date Smoking Tobacco: Never Passive Smoke Exposure: Never Smokeless Tobacco: Never Tobacco Cessation:Counseling Given: Not Answered Alcohol Use Standard Drinks/Week Comments Yes 0 (1 standard drink = 0.6 oz pur e alcohol) AUDIT-C Answer Date Recorded Q1: How often do you have a drink containing alc ohol? Monthly or less 04/18/2021 Average Number of Drinks Not on file 021 Frequency of Binge Drinking Not on file 04/02 Comments Unknown Sex and Gender Information Value Date Recorded Sex Assigned at Not on file Legal Sex Female 3:06 AM FAST FOOD SERVICES MANAGER Gender Identity Female 05/15/2021 1:53 PM FAST FOOD SERVICES MANAGER Sexual Orientation Straight 06/12/2020 10 :17 AM FAST FOOD SERVICES MANAGER Occupation Industry Job Start Date Job End Date retired Not on file Not on file Not on file Obstetrics History Para Term AB IAB SAB Ectopic Multiple Livin g Live Births 2 Date Outcome GA Total Labor Labor/2nd/3rd Weight Sex Type Anes PTL Janki A1 A5 Name Clin Last Filed Vital Signs Vital Sign Reading Time Taken Comments Blood Pressure 112/76 01/23/2025 11:33 AM CDT Pulse 76 01/23/2025 11:33 AM CDT Temperature 36.1 C (97 F) 04/18/2021 8:32 AM FAST FOOD SERVICES MANAGER Respiratory Rate 20 01/23/2025 11:33 AM CDT Oxygen Saturation 98% 01/23/2025 11:33 AM CDT Inhaled Oxygen Concentration - - Weight 75.8 kg (167 lb) 01/23/2025 11:33 AM CDT Height 165.1 cm (5' 5) 01/23/2025 11:33 AM CDT Body Mass Index 27.79 01/23/2025 11:33 AM CDT Plan of Treatment Health Maintenance Due Date Last Done Comments Depression Screening 1945 Osteoporosis Screening-Bone Density Scan 1945 Hepatitis B Screening 1961 Well Visit 65+ 2008 Pneumococcal vaccine 65+ (2 of 2 - PPSV23, PCV20, or PCV21) 02/20/2016 12/26/2015 Fall Risk Assessment 06/23/2022 06/23/2021, 03/24/2021, 03/28/2018, Additional history exists Covid-19 Vaccine (4 - 2024-2 6 season) 2025 07/06/2020, 06/15/2020, 06/07/2020 Influenza Vaccine (#1) 2025 , 02/01/2020, 02/08/2019, Additional history exists DTaP/Tdap/Td Vaccine (3 - Td or Tdap) 12/18/2025 12/19/2015, 05/03/2001 Zoster Vaccine Completed 01/21/2018, 01/02, 11/21/2017, Additional history exists Procedures Procedure Name Priority Date/Time Associated Diagnosis Comments ELECTROCARDIOGRAM REPORT Routine 01/23/2025 4:36 PM CDT Preop cardiovascular exam Essential hypertension SCREENING MAMMOGRAM BILATERAL W ROQUE Schedule Routine, Read Routine (OP Routine) 12/22/2024 11:27 AM CDT Encounter for screening Encounter for screening mammogram for malignant neoplasm of breast from Last 3 Months Results * Electrocardiogram Report (01/23/2025 4:36 PM CDT) Edy Hunter MD ECG ORDERABLES Final Result * Screening Mammogram Bilateral W Roque (12/22/2024 11:27 AM CDT) Anatomical Region Laterality Modality Breast Bilateral Mammography Impressions 12/25/2024 10:52 AM CDT Bilateral No evidence of malignancy in either breast. OVERALL BI-RADS FINAL ASSESSMENT: 1 - Negative RECOMMENDATION: Recommend bilateral annual screening mammography. Decision to continue screening mammography should be made based on clinical factors. Narrative 12/25/2024 10:52 AM CDT EXAMINATION: Screening Mammogram Bilateral W Roque: 12/22/2024 COMPARISON: Relevant prior studies available at the time of interpretation were reviewed, including the most recent mammogram on: 11/29/2023, 11/23/2022, 02/13/2022, 01/13/2022, 02/04/2021, 01/13/2021, 12/27/2019, 11/08/2018, 05/05/2018, 10/06/2017, and 09/24/2016. TECHNIQUE: Mammography was performed with 2D and 3D digital breast tomosynthesis (DBT) images. CAD was utilized. BREAST PARENCHYMAL COMPOSITION: The breasts are heterogeneously dense, which may obscure small masses. FINDINGS: Bilateral There is no suspicious mass, calcification, or architectural distortion in either breast. There have been no significant interval changes from prior studies. Merly Duncan NP IMG MAMMO PROCEDURES Final Result from Last 3 Months Additional Health Concerns Infection Onset Date Last Indicated MDR gram neg/ESBL Comment:Germ watcher auto flagging. Specimen: URINE Site: 08/21/2015 08/21/2015 Insurance [employer] MEDICARE [facility] MEDICARE [facility] MEDICARE Care Teams Mainframe Architect Relationship Specialty Start Date End Date Luther Gilmore MD [address] [address] PCP - General Family Practice 10/12/23 Carmen Meneses MD [address] [facility] [address] [place] [address] Referring Physician Obstetrics and Gynecology 07/11/21 Glenda Arias MD [address] [facility] 162 [facility] [address] [place] [address] Referring Physician Obstetrics and Gynecology 07/11/21
--- OUTSIDE RECORDS SUMMARY | 2025-02-15 11:20 | XMS_ITS | Encounter Summary ---
Author Organization [facility] Address [address] [facility] [address] [place] [address] Phone Care Team Providers Care Green Hide Inspector Name Role Phone Carmen Meneses MD Unavailable [phone] Glenda Arias MD Unavailable [phone] Luther Gilmore MD Primary Care Provider [phone] Encounter Details Date Type Department Care Team (Late st Contact Info) Description 12/25/2024 Results Follow-Up [facility] Medicine Surgery [address] [facility] Floor 8 [place] [address] Merly Duncan NP [address] [facility] [phone] [place] [address] Screening Mammogram Bilateral W Roque Social History Tobacco Use Types Packs/Day Years Used Date Smoking Tobacco: Never Passive Smoke Exposure: Never Smokeless Tobacco: Never Alcohol Use Standard Drinks/Week Comments Yes 0 [...] on file Legal Sex Female 3:06 AM MANAGER OF INTERNATIONAL Gender Identity Female 05/15/2021 1:53 PM MANAGER OF INTERNATIONAL Sexual Orientation Straight 06/12/2020 10 :17 AM MANAGER OF INTERNATIONAL Occupation Industry Job Start Date Job End Date retired Not on file Not on file Not on file documented as of this encounter Plan of Treatment Not on file documented as of this encounter Visit Diagnoses Not on filedocumented in this encounter Additional Health Concerns Infection Onset Date Last Indicated Resolved Time MDR gram neg/ESBL Comment:Germ watcher auto flagging. Specimen: URINE Site: 08/21/2015 08/21/2015 documented as of this encounter Care Teams Green Hide Inspector Relationship Specialty Start Date End Date Luther Gilmore MD [address] [facility] [address] [place] [address] PCP - General Family Practice 10/12/23 Carmen Meneses MD [address] [facility] [address] [place] [address] Referring Physician Obstetrics and Gynecology 07/11/21 Glenda Arias MD [address] [facility] [address] [place] [address] Referring Physician Obstetrics and Gynecology 07/11/21 documented as of this encounter
--- OUTSIDE RECORDS SUMMARY | 2025-02-15 11:20 | XMS_ITS | Encounter Summary ---
Author Organization [facility] Address [address] [facility] [place] [address] Care Team Providers Care Stone Layer Name Role Phone Tray Teresa Primary Care Provider [phone] Luther Gilmore MD Primary Care Provider [phone] Encounter Details Date Type Department Care Team (Late Contact Info) Description 11/09/2019 Lab Requisition [facility] Care DermPath Lab [address] [place] [phone] Faheem Gaines MD [address] [place] [address] Social History Tobacco Use Types Packs/Day Years Used Date Smoking Tobacco: Never Smokeless Tobacco: Never Alcohol Use Standard Drinks/Week Comments No 0 (1 standard drink = 0.6 oz pur e alcohol) Comments No Sex and Gender Information Value Date Recorded Sex Assigned at Not on file Legal Sex Female 6:23 AM AGRICULTURAL LOAN OFFICER Gender Identity Not on file Sexual Orientation Not on file documented as of this encounter Plan of Treatment Upcoming Encounters Date Type Department Care Team (Late Contact Info) Description 03/20/2025 1:00 PM AGRICULTURAL LOAN OFFICER Office Visit [facility] - TRANSMITTER ENGINEER [address], [facility] [address] [place] [address] Vipul Arteaga Che, MD [address] [facility] [address] [place] [address] documented as of this encounter Procedures Procedure Name Priority Date/Time Associated Diagnosis Comments DERMATOPATHOLOGY Routine 11/08/2019 12:0 0 AM CDT documented in this encounter Results * DERMATOPATHOLOGY (11/08/2019 12:00 AM CDT) Case Report Dermatopathology Report Case: [id number] Authorizing Provider: Faheem Gaines MD Collected: 11/08/2019 12:00 AM Ordering Location: [facility] DermPath Lab Received: 11/09/2019 11:34 AM Pathologist: Zay Levine MD Specimen: Skin, post left ear 0 4:45 PM CDT DERMATOPATHOLOGY LABORATORY Final Diagnosis Specimen A. SKIN, post left ear: CHRONIC PERIFOLLICULITIS (L73.8) DERMAL FIBROSIS (L90.5) (see microscopic description) 0 4:45 PM CDT DERMATOPATHOLOGY LABORATORY at 1645 CDT Clinical History R/O BCC. 0 4:45 PM CDT DERMATOPATHOLOGY LABORATORY Gross Description Specimen A: Received is one formalin filled container labeled with the patient's name and designated post left ear. The specimen consists of a shave (2 pieces) biopsy measuring [id number], [id number]. Jar 0. 0 4:45 PM CDT DERMATOPATHOLOGY LABORATORY Microscopic Description Specimen A. SKIN, post left ear: Sections show a perifollicular lymphohistiocytic infiltrate.The epidermis is unremarkable. There is focal dermal fibrosis. Tumor is not present in the sections examined. Additional deeper sections were obtained and reviewed. 0 4:45 PM CDT DERMATOPATHOLOGY LABORATORY Disclaimer An external and internal positive and negative controls are appropriate for the histochemical, immunohistochemical and immunofluorescence stain(s) in this case (if any), except where stated explicitly. The performance characteristics of the stain(s) cited in this report were developed and its performance characteristic determined by the Dermatopathology Laboratory at [facility], directed by Dr. Miguel Levine. These tests need not be, and therefore are not, approved by the [place] Food and Drug Administration. The tests are used for clinical purposes. Billing Codes Specimen Charges Stain Charges 79603 1 0 4:45 PM CDT DERMATOPATHOLOGY LABORATORY Embedded Images 0 4:45 PM CDT DERMATOPATHOLOGY LABORATORY Pathology/Cytolog y TISSUE SPECIMEN FROM SKIN / Unknown 11/08/2019 11/09/2019 11:34 AM CDT Faheem Gaines MD LAB - PATHOLOGY/CYTOLOGY ORD ERABLES Final Result DERMATOPATHOLOGY LABORATORY [facility] - Department of Dermatology Program Engineer [facility]/[address] [phone] documented in this encounter Visit Diagnoses Not on filedocumented in this encounter Care Teams Stone Layer Relationship Specialty Start Date End Date Tray Teresa DO [address] [place] [address] PCP - General 12/27/18 09/13/23 Luther Gilmore MD [address] [place] [address] PCP - General Family Medicine 09/14/23 documented as of this encounter
--- OUTSIDE RECORDS SUMMARY | 2025-02-15 11:20 | XMS_ITS | Encounter Summary ---
Author Organization [facility] Address [address] [facility] [place] [address] Care Team Providers Care Laboratory Aide Name Role Phone Terrance Suárez MD Primary Care Provider Unavail able Tray Teresa DO Primary Care Provider [phone] Luther Gilmore MD Primary Care Provider [phone] Encounter Details Date Type Department Care Team (Late Contact Info) Description 08/18/2018 Lab Requisition [facility] Care DermPath Lab [address] [facility], [place] [address] Faheem Gaines MD [address] [place] [address] Social History Tobacco Use Types Packs/Day Years Used Date Smoking Tobacco: Never Smokeless Tobacco: Never Alcohol Use Standard Drinks/Week Comments No 0 (1 standard drink = 0.6 oz pur e alcohol) Comments No Sex and Gender Information Value Date Recorded Sex Assigned at Not on file Legal Sex Female 6:23 AM CONSTRUCTION ESTIMATOR Gender Identity Not on file Sexual Orientation Not on file documented as of this encounter Plan of Treatment Upcoming Encounters Date Type Department Care Team (Late Contact Info) Description 03/20/2025 1:00 PM CONSTRUCTION ESTIMATOR Office Visit [facility] - DOUGH MOLDER HAND [address] [place] [address] Vipul Arteaga Che, MD [address] [place] [address] documented as of this encounter Procedures Procedure Name Priority Date/Time Associated Diagnosis Comments DERMATOPATHOLOGY Routine 08/17/2018 12:0 0 AM CDT documented in this encounter Results * DERMATOPATHOLOGY (08/17/2018 12:00 AM CDT) Case Report Dermatopathology Report Case: [id number] Authorizing Provider: Faheem Gaines MD Collected: 08/17/2018 12:00 AM Pathologist: Lupe Mendes MD Received: 08/18/2018 01:38 PM Specimen: Skin, left lateral shoulder 12:51 PM CDT DERMATOPATHOLOGY LABORATORY Final Diagnosis Specimen A. SKIN, left lateral shoulder: LICHEN PLANUS-LIKE KERATOSIS (BENIGN LICHENOID KERATOSIS) (L82.1) 12:51 PM CDT DERMATOPATHOLOGY LABORATORY at 1251 CDT Clinical History R/O Hernandez's, ISK, HAK 12:51 PM CDT DERMATOPATHOLOGY LABORATORY Gross Description Specimen A: Received is one formalin filled container labeled with the patient's name and designated left lateral shoulder. The specimen consists of a shave biopsy measuring 7x6x1 mm. Jar 0. 12:51 PM CDT DERMATOPATHOLOGY LABORATORY Microscopic Description Specimen A. SKIN, left lateral shoulder: The epidermis is mildly acanthotic. There is a lichenoid infiltrate with vacuolar changes of basilar keratinocytes and scattered necrotic keratinocytes. 12:51 PM CDT DERMATOPATHOLOGY LABORATORY Disclaimer An external and internal positive and negative controls are appropriate for the histochemical, immunohistochemical and immunofluorescence stain(s) in this case (if any), except where stated explicitly. The performance characteristics of the stain(s) cited in this report were developed and its performance characteristic determined by the Dermatopathology Laboratory at [facility], directed by Dr. Miguel Levine. These tests need not be, and therefore are not, approved by the [place] Food and Drug Administration. The tests are used for clinical purposes. Billing Codes Specimen Charges Stain Charges 11377 1 9 12:51 PM CDT DERMATOPATHOLOGY LABORATORY Embedded Images 9 12:51 PM CDT DERMATOPATHOLOGY LABORATORY Pathology/Cytolog y TISSUE SPECIMEN FROM SKIN / Unknown 08/17/2018 08/18/2018 1:38 PM CDT Faheem Gaines MD LAB - PATHOLOGY/CYTOLOGY ORD ERABLES Final Result DERMATOPATHOLOGY LABORATORY [facility] - Department of Dermatology [address] [place] [address], 5th Floor Lab [address] [phone] documented in this encounter Visit Diagnoses Not on filedocumented in this encounter Care Teams Laboratory Aide Relationship Specialty Start Date End Date Terrance Suárez MD PCP - General 08/13/17 12/26/18 Tray Teresa DO [address] [place] [address] PCP - General 12/27/18 09/13/23 Luther Gilmore MD [address] [place] [address] PCP - General Family Medicine 09/14/23 documented as of this encounter
--- OUTSIDE RECORDS SUMMARY | 2025-02-15 11:20 | XMS_ITS | Clinical Summary ---
Author Organization [facility] Address [address] [place] [address] Phone Care Team Providers Care Molder Machine Name Role Phone Unavailable Primary Care Provider Unavailabl e Social History Tobacco Use Types Packs/Day Years Used Date Smoking Tobacco: Never Assessed Comments Unknown Sex and Gender Information Value Date Recorded Sex Assigned at Not on file Legal Sex Female 12:24 PM MANAGER HOSPITAL Gender Identity Not on file Sexual Orientation Not on file Plan of Treatment Health Maintenance Due Date Last Done Comments Hepatitis C Virus (HCV) Screening 1945 Pneumococcal Immunization (50+ years) (2 of 2 - PCV20 or PCV21) 12/25/2016 12/26/2015 Respiratory Syncytial Virus (RSV) Immunization (Adult) (1 - 1-dose 75+ series) 2018 Influenza Immunization (#1) 01/01/202501/01, 02/08/2019, 02/03/2018, Additional history exists SARS-COV-2 Immunization () 01/01/2025 DTaP/Tdap/Td Immunization Discontinued 12/19/2015 TdaP Immunization Completed 12/19/2015 Pneumococcal Immunization Combined Discontinued 12/26/2015 Zoster Immunization Completed 01/20/2018, 8 Hepatitis B Immunization Aged Out No longer eligible based on patient's age to complete this topic Human Papillomavirus (HPV) Immunization Aged Out No longer eligible based on patient's age to complete this topic Meningococcal Immunization (ACWY) Aged Out No longer eligible based on patient's age to complete this topic Rotavirus Immunization Aged Out No lo nger eligible based on patient's age to complete this topic
--- OUTSIDE RECORDS SUMMARY | 2025-02-15 11:20 | XMS_ITS | Clinical Summary ---
Author Organization [facility] [place] [facility] Address [address] [facility] [place] [address] Care Team Providers Care Gas Distribution Plant Operator Name Role Phone Luther Gilmore MD Primary Care Provider [phone] Source Comments [facility],non-owned Affiliates and Associated Physician Practices is amultiple site organization consisting of ambulatory clinics and hospital sitesin [place], [place], [place] and [place]. This disclosure is being madepursuant to the Care Everywhere program and may not contain all information available regarding this patient. Last updated 18.[facility] [place] [facility] Allergies Active Allergy Reactions Criticality Noted Date Comments Augmentin Diarrhea 08/25/2018 Cephalexin Rash Medium 05/09/2021 Can use cefdinir Lactose Rash Medium Lactose Rash Medium 12/27/2018 Sulfamethoxazole W-Trimethoprim Rash Medium /10/2014 Medications * Be aware that medications may not be up to date on this document. Alwaysverify current medications with the patient. aspirin EC (Ecotrin) 81 MG tablet 1 (one) tablet 02/03/20 16 Active fluticasone propionate (FLONASE) 50 MCG/ACT nasal spray 08/23/19 18 Active pravastatin (PRAVACHOL) 20 MG tablet 08/14/19 18 Active cycloSPORINE (Restasis) 0.05 % ophthalmic suspension 2 times daily Activ e testosterone 0.1% CREA compd cream Apply to affected area once daily Active progesterone 150 mg 150 mg capsule Take 1 (one) capsule by mouth at bedtime Active THYROID POIndications: T3, T4 compounded Reasons: T3, T4 compounded Active vitamin C (ASCORBIC ACID) 1000 MG tablet Take 1 (one) tablet by mouth once daily Active dilTIAZem ER 24hr (TIAZAC) 180 MG capsule TAKE 1 CAPSULE(180 MG) BY MOUTH DAILY 09/05/19 21 Active DILT-XR 180 MG capsule 12/11/19 21 Active spironolactone (ALDACTONE) 100 MG tablet 12/13/19 21 Active azelastine (Astelin) 0.1 % nasal spray USE 2 SPRAYS IN EACH NOSTRIL TWICE DAILY 06/16/19 22 Active Cholecalcifero l 250 MCG (44725 UT) TABS Active esomeprazole (NexIUM) 40 MG capsule Take 1 (one) capsule by mouth once daily 12/07/19 22 Active ipratropium (Atrovent) 0.03 % nasal spray 2 SPRAYS IN EACH NOSTRIL NASALLY NEEDED FOR 30 DAYS 09/09/19 22 Active Progesterone 100 MG capsule Take 3 (three) capsules by mouth once daily Active saccharomyces (Florastor Extra Str) 250 MG capsule Take 1 (one) capsule by mouth 2 times daily Active triamcinolone acetonide (Kenalog) 0.025 % cream APPLY TOPICALLY TO AFFECTED AREA ON LEFT FOREARM TWICE DAILY DIRECTED 01/28/20 22 Active EPINEPHrine (Epipen) 0.3 MG/0.3ML auto-injector pen Inject 0.3 mL into muscle once as needed for Anaphylaxis 0.6 mL 1 01/29/20 23 Active cholestyramine (Questran) 4 g packet 07/23/19 23 Active diazePAM (Valium) 5 MG tablet 04/10/20 22 Active estradiol (Estrace) 0.5 MG tablet Take 5 (five) tablets by mouth once daily Active mirabegron ER 24hr (Myrbetriq) 50 MG tablet Take 1 (one) tablet by mouth once daily 90 tablet 3 11/22/19 25 Active trimethoprim (Trimpex) 100 MG tablet TAKE 1 TABLET BY MOUTH DAILY 90 tablet 4 01/19/20 25 Active nitrofurantoin monohyd macro crystals (Macrobid) 100 MG capsuleIndicat ions:Urinary Tract Infection Take 1 (one) capsule by mouth 2 times daily with morning and evening meal Reasons: Urinary Tract Infection 14 capsule 02/09/20 25 Active trimethoprim (Trimpex) 100 MG tablet Take 1 (one) tablet by mouth once daily 90 tablet 4 09/14/19 24 025 Discontinued Active Problems Problem Noted Date Diagnosed Date 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 Arthralgia of hip 08/19/2015 Myofascial pain 08/19/2015 Recurrent urinary tract infection 08/19/2015 Overactive bladder 10/13/2007 Resolved Problems Problem Noted Date Diagnosed Date Resolved Date Pain in female pelvis 08/19/20152017 Encounters Date Type Department Care Team Description 02/07/2025 Results Follow-Up [facility] - CLIENT CUSTOMER MANAGER [address] [facility] [address] [place] [address] Vipul Arteaga Che, MD 01/18/2025 Refill [facility] - CLIENT CUSTOMER MANAGER [address], [facility] [address] [place] [address] Vipul Arteaga Che, MD Refill Request 11/21/2024 1:00 PM CDT Office Visit [facility] - CLIENT CUSTOMER MANAGER [address], [facility] [address] [place] [address] Vipul Arteaga Che, MD Midline cystocele (Primary Dx); OAB (overactive bladder); Recurrent UTI 11/21/2024 Travel from Last 3 Months Immunizations Immunization Administration Dates Next Due INFLUENZA VACCINE 02/01/2020,01/31/2018 INFLUENZA VACCINE, HIGH-DOSE , QUADR. (FLUZONE HIGH-DOSE QUADRIVALENT; 65Y+), 0.7 ML (HD-IIV4) 02/08/2019 Family History Medical History Relation Name Comments Diabetes - Type 2 Father Hypertension Father CVA Maternal Grandmother Cancer - Breast Mother Cancer - Ovarian Mother Hypertension Mother Cancer - Other Paternal Grandfather esoph ageal CVA Paternal Grandmother Diabetes - Type 2 Paternal Grandmother Cancer - Breast Sister Relation Name Status Comments Father Maternal Grandmother Mother Paternal Grandfather Paternal Grandmother Sister Social History Tobacco Use Types Packs/Day Years Used Date Smoking Tobacco: Never Smokeless Tobacco: Never Tobacco Cessation:Counseling Given: Not Answered Alcohol Use Standard Drinks/Week Comments No 0 (1 standard drink = 0.6 oz pur e alcohol) PHQ-2 Answer Date Recorded Patient Health Questionnaire-2 Score 0 11/21/2024 Comments No Sex and Gender Information Value Date Recorded Sex Assigned at Not on file Legal Sex Female 6:23 AM BANKING OFFICER Gender Identity Not on file Sexual Orientation Not on file Last Filed Vital Signs Vital Sign Reading Time Taken Comments Blood Pressure 126/74 11/21/2024 1:04 PM CDT Pulse 69 12/27/2018 9:58 AM CDT Temperature 36.2 C (97.2 F) 09/14/2023 11:05 AM CDT Respiratory Rate - - Oxygen Saturation - - Inhaled Oxygen Concentration - - Weight 75 kg (165 lb 6.4 oz) 11/21/2024 1:04 PM CDT Height 162.6 cm (5' 4) 11/21/2024 1:04 PM CDT Body Mass Index 28.39 11/21/2024 1:04 PM CDT Plan of Treatment Upcoming Encounters Date Type Department Care Team (Late st Contact Info) Description 03/20/2025 1:00 PM BANKING OFFICER Office Visit [facility] - CLIENT CUSTOMER MANAGER [address], [facility] [address] [place] [address] Vipul Arteaga Che, MD [address] [facility] [address] [place] [address] Health Maintenance Due Date Last Done Comments BONE DENSITY TESTING 1943 DTAP/TDAP/TD VACCINES (1 - Tdap) 1962 PNEUMOCOCCAL VACCINE 50+ (1 of 1 - PCV) 1993 ZOSTER VACCINE (1 of 2) 1993 Respiratory Syncytial Virus (RSV) Vaccine Pt: or over 60 yrs (1 - 1-dose 75+ series) 2018 MEDICARE AWV CALENDAR YEAR 2024 COVID-19 VACCINE ( - season) 2025 07/06/2020, 06/07/2020 INFLUENZA VACCINE (#1) 2025 0, 02/08/2019, 01/31/2018, Additional history exists DEPRESSION SCREENING Completed 09/19/2024, 09/14/19 24 HEPATITIS B VACCINE Aged Out No longe r eligible based on patient's age to complete this topic HIB VACCINE Aged Out No longer eligi ble based on patient's age to complete this topic HPV VACCINE Aged Out No longer eligi ble based on patient's age to complete this topic MENINGOCOCCAL (Group B) VACCINE SHARED DECISION-MAKING Aged Out No longer eligible based on patient's age to complete this topic MENINGOCOCCAL GROUPS A/C/Y/W VACCINE Aged Out No longer eligible based on patient's age to complete this topic Procedures Procedure Name Priority Date/Time Associated Diagnosis Comments CULTURE URINE Routine 02/05/2025 3:13 PM CDT Recurrent UTI from Last 3 Months Results * (ABNORMAL) CULTURE URINE (02/05/2025 3:13 PM CDT) Urine Culture Routine Final report(A) [facility] INSURANCE BILL Comment: Performed at: [address] [place] [id number] Sales Associate Fishing: Fantasma Rivas PhD, Phone: [phone] Result 1 Escherichia coli(A) [facility] INSURANCE BILL Comment: Cefazolin with an ANNALISE <=16 predicts susceptibility to the oral agents cefaclor, cefdinir, cefpodoxime, cefprozil, cefuroxime, cephalexin, and loracarbef when used for therapy of uncomplicated urinary tract infections due to E. coli, Klebsiella pneumoniae, and Proteus mirabilis. Multi-Drug Resistant Organism Greater than 100,000 colony forming units per mL Antimicrobial Susceptibility Comment [facility] INSURANCE BILL Comment: S = Susceptible; I = Intermediate; R = Resistant P = Positive; N = Negative MICS are expressed in micrograms per mL Antibiotic RSLT#1 RSLT#2 RSLT#3 RSLT#4 Amoxicillin/Clavulanic Acid I Ampicillin R Cefazolin S Cefepime S Cefoxitin S Cefpodoxime S Ceftriaxone S Ciprofloxacin R Ertapenem S Gentamicin R Levofloxacin R Meropenem S Nitrofurantoin S Piperacillin/Tazobactam S Tetracycline S Tobramycin I Trimethoprim/Sulfa R Urine URINE SPECIMEN OBTAINED BY CLEAN CATCH PROCEDURE / Unknown 02/05/2025 3:13 PM CDT 02/05/2025 Comment:UR Narrative [facility] INSURANCE BILL - 02/08/2025 6:09 AM CDT Performed at: 01 - [facility] [address] [place], [place] [id number] Sales Associate Fishing: Fantasma Rivas PhD, Phone: [phone] [facility] Arteaga MD LAB - MICROBIOLOGY ORDERABLES F inal Result [facility] INSURANCE BILL [address] [place] [address] from Last 3 Months Insurance [facility] MANAGED MEDICARE ADV AETNA AETNA MEDICARE ADV Care Teams Gas Distribution Plant Operator Relationship Specialty Start Date End Date Luther Gilmore MD [address] [place] [address] PCP - General Family Medicine 09/14/23
== END 2025-02-15 09:58 | disposition home or self-care (01) ==
LOC: ANHSURGERY 10:01
PROVIDERS: PCP Family Medicine; Visit Provider Orthopaedic Surgery
DX: M16.11 Unilateral primary osteoarthritis, right hip (principal); Z01.818 Encounter for other preprocedural examination
CPT/HCPCS: 80307; 87081

== ENCOUNTER 2025-03-13 07:31 | Inpatient (IN) | payer MEDICARE, SELFPAY ==
--- OUTSIDE RECORDS SUMMARY | 2008-11-21 02:30 | XMS_ITS | Continuity of Care Document ---
Author Organization [facility] Address [address] [place] [address] Phone Care Team Providers Care Umbrella Repairer Name Role Phone Trevorsonu Medardo Unavailable Unavailable Procedures Procedure Date Office/outpatient Visit, Est No Script Office/outpatient Visit, Est Eye Exam Established Pt Advance Directives Directive Yes / No Effective Date File Name No Information Encounters Encounter Description Practice Location Reason(s) For Visit Diagnoses Date Provider Providers Copied on Encounter Office/outpat ient Visit, Est [facility], [id number] [place] [address] [address], [place], [place], [id number], [place] tel:[phone] SEC [facility] No Information 2 [address] Rimma Batres. Replaced by [facility] [address], [place], [place], [facility], [place]. tel:[phone] Office/outpat ient Visit, Est [facility], [address], [place], [place], [id number], [place] tel:[phone] [facility] No Information [address] [facility] [address], [place], [place], [facility], [place]. tel:[phone] [facility], [address], [place], [place], [id number], [place] tel:[phone] [facility] No Information [address]. [address] , [address], [place], [address], [place]. tel:[phone] Family History Family Member Type Diagnosis Age At Onset No Information Payers Payer name Insurance type Covered alliance party ID Authoriza tion(s) [place] [id number] Social History Type Description Quantity Date Captured Comments Sex Female Smoking Status No Information Chief Complaint And Reason For Visit No Information Reason For Referral Reason For Referral No Information History Of Present Illness Encounter Date Complaint History Of Prese nt Illness No Information Functional Status Date Functional Assessmen t No Information Instructions Date Instruction Additional Infor mation No Information Assessments Type Assessment Date No Information Patient Care Teams Name Effective Dates (start - stop) Status Members No Information
--- OUTSIDE RECORDS SUMMARY | 2025-01-15 09:50 | XMS_ITS ---
Author Organization [facility] Address [address] [place], [place] [id number] Care Team Providers Care Vet Tech Name Role Phone PERNELL MARTE Unavailable [phone] Terrance Suárez Unavailable Unavailable Allergies No Known Allergies REASON FOR VISIT The patient had a sudden onset of a red, hot, swollen, and painful right great toe joint. No history of accident or injury. She has had similar pain and redness in her finger. She denies any history of gout, but does take a diuretic Medications Medication SIG (Take, Route, Frequency, Duration) Notes Start Date End Date Status esomeprazole 40 MG Delayed Release Oral Capsule [Nexium] ORAL esomeprazole 40 MG Delayed Release Oral Capsule [Nexium]Original Medicationesomeprazole 40 MG Delayed Release Oral Capsule [Nexium] *Reorder from [employer] for eRx and Interaction Alerts* 017 Active cyclosporine 0.5 MG/ML Ophthalmic Suspension [Restasis] cyclosporine 0.5 MG/ML Ophthalmic Suspension [Restasis]Original Medicationcyclosporine 0.5 MG/ML Ophthalmic Suspension [Restasis] *Reorder from [employer] for eRx and Interaction Alerts* 017 Active ciclopirox 80 MG/ML Topical Solution ciclopirox 80 MG/ML Topical SolutionOriginal Medicationciclopirox 80 MG/ML Topical Solution *Reorder from [employer] for eRx and Interaction Alerts* 017 Active Bifidobacterium infantis 4 MG Oral Capsule [Align] ORAL Bifidobacterium infantis 4 M G Oral Capsule [Align]Original MedicationBifidobacterium infantis 4 MG Oral Capsule [Align] *Reorder from [facility] for eRx and Interaction Alerts* 017 Active aspirin 81 MG Delayed Release Oral Tablet ORAL aspirin 81 MG Delayed Releas e Oral TabletOriginal Medicationaspirin 81 MG Delayed Release Oral Tablet *Reorder from [facility] for eRx and Interaction Alerts* 017 Active Progesterone 200 MG Oral Capsule ORAL progesterone 200 MG Oral CapsuleOriginal Medicationprogesterone 200 MG Oral Capsule *Reorder from [facility] for eRx and Interaction Alerts* 017 Active hydroCHLOROthiazide 12.5 MG Oral Capsule ORAL hydrochlorothiazide 12.5 MG Oral CapsuleOriginal Medicationhydrochlorothiazide 12.5 MG Oral Capsule *Reorder from [facility] for eRx and Interaction Alerts* 017 Active Losartan Potassium 25 MG Oral Tablet ORAL losartan potassium 25 MG Ora l TabletOriginal Medicationlosartan potassium 25 MG Oral Tablet *Reorder from [facility] for eRx and Interaction Alerts* 017 Active Pravastatin Sodium 20 MG Oral Tablet ORAL pravastatin sodium 20 MG Ora l TabletOriginal Medicationpravastatin sodium 20 MG Oral Tablet *Reorder from [facility] for eRx and Interaction Alerts* 017 Active Estradiol 2 MG Oral Tablet ORAL estradiol 2 MG Oral TabletOriginal Medicationestradiol 2 MG Oral Tablet *Reorder from [facility] for eRx and Interaction Alerts* 017 Active Ciclopirox 8 % Solution 1 application Externally Once a day to toenails.; Duration: 30 days Remove medication once a week with rubbing alcohol. one bottle, 6.6mL or similar. 025 2025 Active olopatadine 2 MG/ML Ophthalmic Solution [Pataday] olopatadine 2 MG/ML Ophthalm ic Solution [Pat]Original Medicationolopatadine 2 MG/ML Ophthalmic Solution [] *Reorder from [facility] for eRx and Interaction Alerts* 017 Active liothyronine sodium 0.005 MG Oral Tablet ORAL liothyronine sodium 0.005 MG Oral TabletOriginal Medicationliothyronine sodium 0.005 MG Oral Tablet *Reorder from [facility] for eRx and Interaction Alerts* 017 Active Social History Social History Additional Details Category Social Info Options Details Migrated Social History Migrated Social History Smoking Status : Never smoked , Alcohol intake : , History of tobacco use : Vital Signs Height 64.00 in 01/15/2025 Weight 170 lbs 01/15/2025 BMI 29.18 kg/m2 01/15/2025 Height-cm 162.56 cm 01/15/2025 Weight-kg 77.11 kg 01/15/2025 Encounters Encounter Location Date Provider Diagnosis [facility] [address] [place], [place] [id number] 01/15/2025 PERNELL MARTE Idiopathic gout, rig ht ankle and foot M10.071 ; Hallux valgus (acquired), right foot M20.11 ; Other hereditary and idiopathic neuropathies G60.8 ; Tinea unguium B35.1 and Pain in right foot M79.671 Assessments Encounter Date Diagnosis (ICD Code) Assessment Notes Treatment Notes Treatment Clinical Notes Section Notes 01/15/2025 Idiopathic gout, right ankle and foot (ICD-10 - M10.071) Gout: I educated the patient on the nature and cause of gout. I stressed the importance of staying hydrated and avoiding food rich in purines. I provided the patient with gout information education sheet and a purine restricted diet. 01/15/2025 Hallux valgus (acquired), right foot (ICD-10 - M20.11) 01/15/2025 Other hereditary and idiopathic neuropathies (ICD-10 - G60.8) 01/15/2025 Tinea unguium (ICD-10 - B35.1) FUNGAL TOENAILS: Discussed various treatment options for fungal toenails including debridement, topical antifungals, oral antifungals, toenail avulsion, or toenail matrixectomy. Fungal Toenails, Continue Treatment: The patient will continue using the topical antifungal medication. I explained that it can take 9-12 months for a toenail to grow out and notice change. 01/15/2025 Pain in right foot (ICD-10 - M79.671) Plan Of Treatment Medication Medication Name Sig Start Date Stop Date Notes Ciclopirox 8 % Solution 1 application Externally Once a day to toenails.; Duration: 30 days 01/15/2025 05/14/2025 one bottle, 6.6mL or similar. Treatment Notes Assessment Notes Idiopathic gout, right ankle and foot Gout: I educated the patient on the nature and cause of gout. I stressed the importance of staying hydrated and avoiding food rich in purines. I provided the patient with gout information education sheet and a purine restricted diet. Tinea unguium FUNGAL TOENAILS: Discussed various treatment options for fungal toenails including debridement, topical antifungals, oral antifungals, toenail avulsion, or toenail matrixectomy. Fungal Toenails, Continue Treatment: The patient will continue using the topical antifungal medication. I explained that it can take 9-12 months for a toenail to grow out and notice change. Pending Test Test Name Order Date Uric Acid, Serum 01/15/2025 Next Appt Details Follow Up: prn, Reason: We w ill go over lab work over the phone (Uric Acid) History and Physical Notes * HPI (History of Present Illness) Category Sub-Category Detail Notes Category Not es HPI New Complaint Patient was last seen in our practice over three years ago. , Patient complains of an issue to right foot with a possible bunion. patient states it was painful. , Duration of problem is 1 month., MA: IR Examination Category Sub-Category Detail Notes Category Not es Dermatologic Skin findings: Skin is warm, dr y, supple with no breaks in the skin Nail pathology: Nails are elongated, thick, discolored, and dystrophic with subungual debris. They are painful to palpation Neurologic Gross sensation Gross sensation is intact to light touch Vascular Dorsalis pedis pulse: 1/4, bilateral Edema: No edema, bilateral Capillary refill: less than 3 seconds Posterior tibial pulse: 1/4, bilateral Musculoskeletal Muscle Strength Muscle strength is 5/5 in regards to dorsiflexion, plantarflexion, inversion, and eversion in bilateral lower extremities Pain on palpation minimal pain with RO M of the right 1st MPJ Constitutional Constitutional The patient is a wake, alert, well developed, well groomed and well nourished Radiographs Right Foot Normal: No evide nce of fracture, dislocation, or other osseous lesions Xray Order Test Requested: 3 Vi ews Weightbearing (AP, LAT, Oblique) Foot, right Progress Notes * CHICHO AJ SDOB:1945 (79 yo F)Acc No.[id number]:01/15/2025 Progress Notes Patient: CHICHO ARANA Provider: Kenyon Marte DPM :1945 A ge:79 Y S ex:Female Date:01/15/2025 [id number] Subjective: * Chief Complaints: * T he patient had a sudden onset of a red, hot, swollen, and painful right great toe joint. No history of accident or injury. She has had similar pain and redness in her finger. She denies any history of gout, but does take a diuretic * HPI: H PI: New Complaint P cj was last seen in our practice over three years ago. , Patient complains of an issue to right foot with a possible bunion. patient states it was painful. , Duration of problem is 1 month., MA: IR. * ROS: G eneral / Constitutional: Patient denies c hills, fever, weakness, night sweats. M usculoskeletal: Patient denies c hildhood foot problems, weakness. P atient complains of j oint pain. P eripheral Vascular: Patient denies u lceration of feet, cold extremities. ? S kin: Patient denies u lcerations, discoloration. ? N eurologic: Patient denies b alance difficulty, confusion, difficulty speaking, dizziness. * Medical History: No Medical History Documented Medical History Verified * Surgical History: No Surgical History documented. Surgical History verified. * Hospitalization/Major Diagno stic Procedure: No Hospitalization Documented. Hospitalization Verified. * Family History: F ather: PRN - Father: :: Diabetes,,known absent . M other: PRN - Mother: :: Cancer,,known absent . S ister: SIB - Sister: . F amily History Verified.. * Social History: M igrated Social History: M igrated Social History: Smoking Status : Never smoked , Alcohol intake : , History of tobacco use :. Social History Verified. * Medications: T akingEstradiol 2 MG Oral Tablet ORAL , Notes to Pharmacist: estradiol 2 MG Oral TabletOriginal Medicationestradiol 2 MG Oral Tablet *Reorder from [employer] for eRx and Interaction Alerts*Pravastatin Sodium 20 MG Oral Tablet ORAL , Notes to Pharmacist: pravastatin sodium 20 MG Oral TabletOriginal Medicationpravastatin sodium 20 MG Oral Tablet *Reorder from [facility] for eRx and Interaction Alerts*Losartan Potassium 25 MG Oral Tablet ORAL , Notes to Pharmacist: losartan potassium 25 MG Oral TabletOriginal Medicationlosartan potassium 25 MG Oral Tablet *Reorder from [facility] for eRx and Interaction Alerts*hydroCHLOROthiazide 12.5 MG Oral Capsule ORAL , Notes to Pharmacist: hydrochlorothiazide 12.5 MG Oral CapsuleOriginal Medicationhydrochlorothiazide 12.5 MG Oral Capsule *Reorder from [facility] for eRx and Interaction Alerts*Progesterone 200 MG Oral Capsule ORAL , Notes to Pharmacist: progesterone 200 MG Oral CapsuleOriginal Medicationprogesterone 200 MG Oral Capsule *Reorder from [facility] for eRx and Interaction Alerts*aspirin 81 MG Delayed Release Oral Tablet ORAL , Notes to Pharmacist: aspirin 81 MG Delayed Release Oral TabletOriginal Medicationaspirin 81 MG Delayed Release Oral Tablet *Reorder from [facility] for eRx and Interaction Alerts*Bifidobacterium infantis 4 MG Oral Capsule [Align] ORAL , Notes to Pharmacist: Bifidobacterium infantis 4 MG Oral Capsule [Align]Original MedicationBifidobacterium infantis 4 MG Oral Capsule [Align] *Reorder from [facility] for eRx and Interaction Alerts*ciclopirox 80 MG/ML Topical Solution , Notes to Pharmacist: ciclopirox 80 MG/ML Topical SolutionOriginal Medicationciclopirox 80 MG/ML Topical Solution *Reorder from [facility] for eRx and Interaction Alerts*cyclosporine 0.5 MG/ML Ophthalmic Suspension [Restasis] , Notes to Pharmacist: cyclosporine 0.5 MG/ML Ophthalmic Suspension [Restasis]Original Medicationcyclosporine 0.5 MG/ML Ophthalmic Suspension [Restasis] *Reorder from [facility] for eRx and Interaction Alerts*esomeprazole 40 MG Delayed Release Oral Capsule [Nexium] ORAL , Notes to Pharmacist: esomeprazole 40 MG Delayed Release Oral Capsule [Nexium]Original Medicationesomeprazole 40 MG Delayed Release Oral Capsule [Nexium] *Reorder from [facility] for eRx and Interaction Alerts*liothyronine sodium 0.005 MG Oral Tablet ORAL , Notes to Pharmacist: liothyronine sodium 0.005 MG Oral TabletOriginal Medicationliothyronine sodium 0.005 MG Oral Tablet *Reorder from [facility] for eRx and Interaction Alerts*olopatadine 2 MG/ML Ophthalmic Solution [] , Notes to Pharmacist: olopatadine 2 MG/ML Ophthalmic Solution []Original Medicationolopatadine 2 MG/ML Ophthalmic Solution [] *Reorder from [facility] for eRx and Interaction Alerts*Medication List reviewed and reconciled with the patientTaking Estradiol 2 MG Oral Tablet ORAL , Notes to Pharmacist: estradiol 2 MG Oral TabletOriginal Medicationestradiol 2 MG Oral Tablet *Reorder from [facility] for eRx and Interaction Alerts*Taking Pravastatin Sodium 20 MG Oral Tablet ORAL , Notes to Pharmacist: pravastatin sodium 20 MG Oral TabletOriginal Medicationpravastatin sodium 20 MG Oral Tablet *Reorder from [facility] for eRx and Interaction Alerts*Taking Losartan Potassium 25 MG Oral Tablet ORAL , Notes to Pharmacist: losartan potassium 25 MG Oral TabletOriginal Medicationlosartan potassium 25 MG Oral Tablet *Reorder from [facility] for eRx and Interaction Alerts*Taking hydroCHLOROthiazide 12.5 MG Oral Capsule ORAL , Notes to Pharmacist: hydrochlorothiazide 12.5 MG Oral CapsuleOriginal Medicationhydrochlorothiazide 12.5 MG Oral Capsule *Reorder from [facility] for eRx and Interaction Alerts*Taking Progesterone 200 MG Oral Capsule ORAL , Notes to Pharmacist: progesterone 200 MG Oral CapsuleOriginal Medicationprogesterone 200 MG Oral Capsule *Reorder from [facility] for eRx and Interaction Alerts*Taking aspirin 81 MG Delayed Release Oral Tablet ORAL , Notes to Pharmacist: aspirin 81 MG Delayed Release Oral TabletOriginal Medicationaspirin 81 MG Delayed Release Oral Tablet *Reorder from [facility] for eRx and Interaction Alerts*Taking Bifidobacterium infantis 4 MG Oral Capsule [Align] ORAL , Notes to Pharmacist: Bifidobacterium infantis 4 MG Oral Capsule [Align]Original MedicationBifidobacterium infantis 4 MG Oral Capsule [Align] *Reorder from [facility] for eRx and Interaction Alerts*Taking ciclopirox 80 MG/ML Topical Solution , Notes to Pharmacist: ciclopirox 80 MG/ML Topical SolutionOriginal Medicationciclopirox 80 MG/ML Topical Solution *Reorder from [facility] for eRx and Interaction Alerts*Taking cyclosporine 0.5 MG/ML Ophthalmic Suspension [Restasis] , Notes to Pharmacist: cyclosporine 0.5 MG/ML Ophthalmic Suspension [Restasis]Original Medicationcyclosporine 0.5 MG/ML Ophthalmic Suspension [Restasis] *Reorder from [facility] for eRx and Interaction Alerts*Taking esomeprazole 40 MG Delayed Release Oral Capsule [Nexium] ORAL , Notes to Pharmacist: esomeprazole 40 MG Delayed Release Oral Capsule [Nexium]Original Medicationesomeprazole 40 MG Delayed Release Oral Capsule [Nexium] *Reorder from [facility] for eRx and Interaction Alerts*Taking liothyronine sodium 0.005 MG Oral Tablet ORAL , Notes to Pharmacist: liothyronine sodium 0.005 MG Oral TabletOriginal Medicationliothyronine sodium 0.005 MG Oral Tablet *Reorder from [facility] for eRx and Interaction Alerts*Taking olopatadine 2 MG/ML Ophthalmic Solution [Pataday] , Notes to Pharmacist: olopatadine 2 MG/ML Ophthalmic Solution [Pataday]Original Medicationolopatadine 2 MG/ML Ophthalmic Solution [Pataday] *Reorder from [facility] for eRx and Interaction Alerts*Medication List reviewed and reconciled with the patient * Allergies: N .K.D.A.yesAllergies Verified. Objective: * Vitals: W t: 170 lbs, Wt-k.11 kg, Ht: 64.00 in, Ht-cm: 162.56 cm, BMI: 29.18 Index, Body Surface Area: 1.86. * Examination: C onstitutional: Constitutional T he patient is awake, alert, well developed, well groomed and well nourished. D ermatologic: Skin findings: S kin is warm, dry, supple with no breaks in the skin. Nail pathology: N ails a re elongated, thick, discolored, and dystrophic with subungual debris. They are painful to palpation. V ascular: Dorsalis pedis pulse: 1 /4, bilateral. Posterior tibial pulse: 1 /4, bilateral. Capillary refill: l ess than 3 seconds. Edema: N o edema, bilateral. N eurologic: Gross sensation G ross sensation is intact to light touch.? M usculoskeletal: Muscle Strength M uscle strength is 5/5 in regards to dorsiflexion, plantarflexion, inversion, and eversion in bilateral lower extremities. Pain on palpation m inimal pain with ROM of the right 1st MPJ. R adiographs: Right Foot N ormal: No evidence of fracture, dislocation, or other osseous lesions. Xray Order T est Requested: 3 Views Weightbearing (AP, LAT, Oblique) Foot, right. Assessment: * Assessment: 1. I diopathic gout, right ankle and foot - M10.071 (Primary) 2 . H allux valgus (acquired), right foot - M20.11 3 . O ther hereditary and idiopathic neuropathies - G60.8 4 . T inea unguium - B35.1 5 . P ain in right foot - M79.671 Plan: * Treatment: 2. T inea unguium Start Ciclopirox Solution, 8 %, 1 application, Externally, Once a day to toenails. Remove medication once a week with rubbing alcohol., 30 days, 1, Refills 3, Notes to Pharmacist: one bottle, 6.6mL or similar.. Notes: FUNGAL TOENAILS: Discussed various treatment options for fungal toenails including debridement, topical antifungals, oral antifungals, toenail avulsion, or toenail matrixectomy. F ungal Toenails, Continue Treatment: The patient will continue using the topical antifungal medication. I explained that it can take 9-12 months for a toenail to grow out and notice change. * Procedure Codes: 7 3630 X-RAY EXAM OF FOOT, Modifiers: RT * Preventive Medicine: Screenings: F all risk screening F all Risk Assessment: N o falls in the past year. * Follow Up: p rn (Reason: We will go over lab work over the phone (Uric Acid)) Billing Information: * Visit Code: 57959 Office Visit, New Pt., Level 3. * Procedure Codes: 68511 X-RAY EXAM OF FOOT. Modifiers: RT * Electronic signature of PERNELL MARTE DPM on 03/12/2025 at 12:31 AM RECYCLING SPECIALIST Sign off status: Pending * Provider: Kenyon Marte DPM Date: 0 01/15/2025 Generated for Ferny young/Taya/Kurtisitting on: 1 05/12/2024 12:31 AM RECYCLING SPECIALIST
[2025-02-15 10:27] VITALS: BMI 29.0
[2025-02-15 10:30] VITALS: BP 108/62; PULSE 64; RESP 16; TEMP 36.6; O2SAT 96
--- NOTE | 2025-02-15 10:48 | PC.NURSE ---
[facility] has started construction of its new state of the art ER which will open Spring 2026. With this, we anticipate parking may be a challenge for some our surgical patients and families. Parking spaces are limited but are available for all Surgical, obstetrics, and ER patients sharing this lot. If you arrive and find you are having a hard time finding a parking space, please note that we understand the challenges, please drive around the hospital and park near Hospital Entrance 1. When you enter this entrance, you can ask a volunteer to direct or take you back to the surgical waiting area to check in. We appreciate everyone?s understanding of these expected challenges while we build for your future. Report to the Outpatient Waiting Room, entrance under the green pavilion located off [address], at time ___6:00AM__ on date ___03/12/25__. Planned Procedure Time: __7:30AM____.? Time changes happen often and if your time is changed the preop area will call you the afternoon before. - You and your visitor will be asked to self-screen and do not enter if you have any COVID symptoms. Please call surgeon if you need to reschedule. - A mask is optional within the hospital at this time. Patients may have clear liquids (water, carbonated beverages, clear teas, apple juice) until 3 hours prior to surgery (4:30AM) with a maximum of 20 ounces. - No food from midnight until time of surgery and no smoking, or chewing tobacco (or any form of nicotine). No chewing gum, candy or mints. Take only the following medications with a SIP of water on the morning of surgery: ____DILTIAZEM, THYROID, TRIMETHOPRIM DO NOT STOP ANY OF YOUR OTHER PRESCRIPTION MEDICATIONS PRIOR TO SURGERY EXCEPT THE FOLLOWING Medications to discontinue per physician ___HOLD MELOXICAM( ALL NSAIDS), VITAMINS/SUPPLEMENTS & HORMONE MEDICATION 7 DAYS PRE-OP PER DR DEAN. Date to take last dose___03/04/25 Please no make-up, nail croatian, hairspray, perfume, deodorant, or body powder the day of surgery.? No jewelry (including any body piercings) or valuables the day of surgery, leave them at home.? Please take a shower or bath the night before, or the morning of, surgery with an antibacterial soap.? Wear comfortable, loose fitting clothing.? - Jewelry must be removed prior to entering the operating room.? Rings and piercings that are not removed may be cut off. - The hospital will not accept responsibility for valuables.? - Please leave all valuables, including medications, at home the day of surgery. If you are going home after surgery, a licensed transit mixer driver must drive you home.? - NO public transportation without another adult if you receive anesthesia. - We recommend that an adult stay with you for 24 hours following discharge. - We also recommend that you do not drive, make important decision, drink alcoholic beverages, or take any drugs that were not prescribed by your health care provider for at least 24 hours after your discharge time. Follow any additional instructions given to you from your surgeon. Telephone instructions given to ___PATIENT and asked if any additional questions and then verbalized understanding. Patient advised to call surgeon office or pre surgery nurse liaison [phone] if any additional questions.
--- NOTE | 2025-02-15 11:11 | PC.NURSE ---
[facility] has started construction of its new state of the art ER which will open Spring 2026. With this, we anticipate parking may be a challenge for some our surgical patients and families. Parking spaces are limited but are available for all Surgical, obstetrics, and ER patients sharing this lot. If you arrive and find you are having a hard time finding a parking space, please note that we understand the challenges, please drive around the hospital and park near Hospital Entrance 1. When you enter this entrance, you can ask a volunteer to direct or take you back to the surgical waiting area to check in. We appreciate everyone?s understanding of these expected challenges while we build for your future. Report to the Outpatient Waiting Room, entrance under the green pavilion located off [address], at time __6:00AM___ on date __03/12/25___. Planned Procedure Time: __7:30AM____.? Time changes happen often and if your time is changed the preop area will call you the afternoon before. - You and your visitor will be asked to self-screen and do not enter if you have any COVID symptoms. Please call surgeon if you need to reschedule. - A mask is optional within the hospital at this time. Patients may have clear liquids (water, carbonated beverages, clear teas, apple juice) until 3 hours prior to surgery (4:30AM) with a maximum of 20 ounces. - No food from midnight until time of surgery and no smoking, or chewing tobacco (or any form of nicotine). No chewing gum, candy or mints. Take only the following medications with a SIP of water on the morning of surgery: __DILTIAZEM, THYROID, TRIMETHOPRIM DO NOT STOP ANY OF YOUR OTHER PRESCRIPTION MEDICATIONS PRIOR TO SURGERY EXCEPT THE FOLLOWING Medications to discontinue per physician ___HOLD MELOXICAM (ALL NSAIDS) AND VITAMINS/SUPPLEMENTS 7 DAYS PRE-OP PER DR DEAN- LAST DOSE 03/04/25 HOLD HORMONE MEDICATION 1 MONTH PRE-OP PER DR DEAN__-LAST DOSE 02/08/25 Please no make-up, nail lao, hairspray, perfume, deodorant, or body powder the day of surgery.? No jewelry (including any body piercings) or valuables the day of surgery, leave them at home.? Please take a shower or bath the night before, or the morning of, surgery with an antibacterial soap.? Wear comfortable, loose fitting clothing.? - Jewelry must be removed prior to entering the operating room.? Rings and piercings that are not removed may be cut off. - The hospital will not accept responsibility for valuables.? - Please leave all valuables, including medications, at home the day of surgery. If you are going home after surgery, a licensed dolly driver must drive you home.? - NO public transportation without another adult if you receive anesthesia. - We recommend that an adult stay with you for 24 hours following discharge. - We also recommend that you do not drive, make important decision, drink alcoholic beverages, or take any drugs that were not prescribed by your health care provider for at least 24 hours after your discharge time. Follow any additional instructions given to you from your surgeon. Telephone instructions given to PATIENT and asked if any additional questions and then verbalized understanding. Patient advised to call surgeon office or pre surgery nurse liaison [phone] if any additional questions.
--- NOTE | 2025-03-09 11:23 | PM.IMHP ---
H&P: HPI History of Present Illness Date/Time: 03/09/25 11:23 Chief Complaint: Right hip DJD Narrative: 79-year-old female who presents today for a right anterior total hip arthroplasty. Patient has been having symptoms on off for several years. Her symptoms worsened in August this year following a trip. This point she is having continued symptoms in the right groin anterior thigh with weight-bearing. Pain is limiting her activities. She has been having to use a walker on a regular basis as well. Patient has been taking meloxicam 7.5 mg with minimal improvement of her symptoms. She has severe osteoarthritis the right hip and patient feels that she would rather proceed with surgery rather than continue nonsurgical treatment. She is very active 79-year-old and wishes to remain active as long as possible. Review of Systems Review of Systems: All systems reviewed & are unremarkable except as noted in HPI and below PMFSH Past Medical History Medical History Change in bowel habits Gas bloat syndrome COVID-19 Osteopenia Gastroesophageal reflux disease Hypothyroidism (acquired) Mixed hyperlipidemia Primary osteoarthritis of both hands Pulmonary emphysema History of vaginal delivery x 2 Back pain Surgical History Surgical History History of bladder surgery History of bilateral tubal ligation H/O total hysterectomy with bilateral salpingo-oophorectomy (BSO) History of back surgery History of appendectomy Family History Family History Mother Hypertension Family history of elevated blood lipids Family history of malignant neoplasm of breast in first degree relative Family history of malignant neoplasm of ovary Patient's mother is Family history of hypercholesterolemia, Onset Age: 93 Family history of gastrointestinal disorder, Onset Age: 93 Grandparent Family history of liver disease, Onset Age: 74 Family history of malignant neoplasm of esophagus, Onset Age: 83 Family history of type 2 diabetes mellitus Family history of heart disease in male family member before age 55 Diabetes mellitus, Onset Age: 77 Cerebrovascular accident, Onset Age: 77 Sibling Family history of malignant neoplasm of breast in first degree relative Patient's sister is Family history of hypercholesterolemia Hypertension Patient's sister is in good health Father Family history of type 2 diabetes mellitus, Onset Age: 77 Family history of heart disease in male family member before age 55, Onset Age: 77 Patient's father is , Onset Age: 77 Diabetes mellitus Family history of cardiovascular disease, Onset Age: 77 Hypertension Social History Social History Social History: Caffeine-occasionally Smoking status: Never smoker Second hand tobacco smoke exposure: No Alcohol intake: current Drinks per week: 1 Alcohol use details: occasionally Substance use: never Substance use type: does not use Do You Feel Safe in your Home?: Yes Lack of Transportation: No Lack of Food: Never True Current Housing: I Have Housing Concerned About Future Housing: No Difficulty Paying Gas/Electric Bills: No Difficulty Paying for Meds: No Currently Unemployed: No Education: Bachelor's Degree Difficulty w/ Childcare or Family Care: No Living arrangements: with family Additional living arrangements comments: HUSB Spiritual care concerns: No Meds Home Medications and Allergies Home Medications ?Medication ?Instructions ?Recorded ?Confirmed ?Type Bifidobacterium infantis 4 mg 4 mg PO DAILY 03/28/19 02/15/25 History capsule (Align (B.infantis)) Saccharomyces boulardii 250 mg 250 mg PO BID 03/28/19 02/15/25 History capsule ascorbic acid (vitamin C) 500 mg 500 mg PO Q12H 03/28/19 02/15/25 History capsule,extended release (Vitamin C) d-mannose 1,000 mg PO BID 03/28/19 02/15/25 History diltiazem HCl 180 mg 180 mg PO DAILY 03/28/19 02/15/25 History capsule,extended release 24 hr, controlled (DILT-XR) testosterone 1 dose topical DAILY 03/28/19 02/15/25 History vitamin B complex (B 1 tablet PO DAILY 08/12/20 02/15/25 History Complex-Vitamin B12 tablet) ipratropium bromide 21 mcg (0.03 2 spray intranasal BID 04/07/23 02/15/25 History %) nasal spray digestive enzymes 1 cap PO BID 05/11/23 02/15/25 History progesterone micronized 100 mg 300 mg PO QAM 11/23/23 02/15/25 History capsule esomeprazole magnesium 40 mg See Rx Instructions .Route 05/15/24 02/15/25 Rx capsule,delayed release .COMPLEX #90 caps perfluorohexyloctane (PF) 100 % 1 drp EACH EYE QID 08/29/24 02/15/25 History eye drops (Miebo (PF)) Thyroid 1 cap PO DAILY 12/13/24 02/15/25 History mirabegron 50 mg tablet,extended 50 mg PO DAILY 12/13/24 02/15/25 History release 24 hr trimethoprim 100 mg tablet 100 mg PO DAILY 12/13/24 02/15/25 History meloxicam 7.5 mg tablet 7.5 mg PO DAILY #30 tabs 02/14/25 02/15/25 Rx acetaminophen 650 mg 1,300 mg PO Q8H PRN pain 02/15/25 02/15/25 History tablet,extended release (8 Hour Pain Reliever) aspirin 81 mg tablet,delayed 81 mg PO DAILY 02/15/25 02/15/25 History release (Adult Low Dose Aspirin) cholecalciferol (vitamin D3) 250 250 mcg PO DAILY 02/15/25 02/15/25 History mcg (10,000 unit) capsule estradiol 2 mg tablet 2.5 mg PO DAILY 02/15/25 02/15/25 History estradiol-testosterone 0.5 supp vaginal 3XW 02/15/25 02/15/25 History spironolactone 50 mg tablet 50 mg PO QAM 02/15/25 02/15/25 History Allergies Allergy/AdvReac Type Severity Reaction Status Date / Time mold Allergy Unknown Congested Verified 02/16/25 07:04 lactose AdvReac Unknown Diarrhea Verified 02/16/25 07:04 Exam Narrative: 79-year-old female alert pleasant. She is 5 ft 4 168 lb, BMI is 29.0. She walks with a mild limp. She appears younger than her stated age. Her right hip flexes to 125, internal rotation to 20 both of which cause lateral hip pain. External rotation 35 which causes no pain. Stinchfield maneuver causes her moderate lateral hip pain. She has normal abduction strength in lateral position, moderate tenderness over the greater trochanter. Skin around the hip and groin crease are normal. 2+ posterior tibial artery pulse palpable. She has normal sensation to the right lower extremity. No edema. Resp: Auscultation: clear to auscultation bilaterally Cardio: Rate: regular rate Rhythm: regular rhythm Assessment and Plan Assessment and plan (1) Arthritis of right hip: Code(s): M16.11 - Unilateral primary osteoarthritis, right hip Status: Acute Assessment and Plan: 79-year-old female who has severe osteoarthritis the right hip with severe symptoms on a daily basis. Symptoms are limiting her activities overall. Patient has had to use a walker more recently due to the pain. She is not getting improvement from the meloxicam. Patient at this point would rather proceed with total hip arthroplasty rather continue nonsurgical treatment. Surgical procedure as well as the risks and complications were discussed in detail and all questions were answered and we will proceed. She will see her primary care doctor for pre-surgical clearance. She has seen her chargeback analyst and has been cleared for surgery without additional testing. She will stop her baby aspirin 1 week prior to surgery as well as her meloxicam. Patient did have multiple reactions to medications as well as antibiotics. She has seen the box spring upholsterer at [place]. She has been tested and found not to be allergic to cephalexin. So will plan to use normal antibiotic prophylaxis preop and postop for her. Nasal swab was negative. Hemoglobin 15.2 and platelets are 293. Chem panel is all within normal limits creatinine 0.85
[2025-03-12] VITALS (10 sets, daily range): BP systolic 114–135; BP diastolic 59–77; PULSE 74–84; RESP 12–19; TEMP 35.9–37.3; O2SAT 92–99
--- OUTSIDE RECORDS SUMMARY | 2025-03-12 00:30 | XMS_ITS | Clinical Summary ---
Author Organization [facility] Address [address] [place] [address] Care Team Providers Care Pipefitter Name Role Phone Carmen Meneses MD Unavailable [phone] Glenda Arias MD Unavailable [phone] Luther Gilmore MD Primary Care Provider [phone] Tejas Larsen MD Unavailable [phone] Allergies Active Allergy Reactions Criticality Noted Date Comments Lactose Rash Medium Mold Other (See comments) 03/11/2021 Medications pravastatin (PRAVACHOL) 20 mg tablet [...] thyroid,pork (ARMOUR THYROID ORAL) Take by mouth Ac tive progesterone (PROMETRIUM) 100 mg capsule Take 3 capsules (300 mg total) by mouth daily Active cholecalcifero l (VITAMIN D-3) 37795 unit tablet Active calcium carb, gluconate/vit D2 (CALCIUM CARB,GLUCON- TAMIN D2 ORAL) Take by mouth A ctive EPINEPHrine 0.3 mg/0.3 mL auto-injection syringe Inject [...] drops 5 Active ascorbic acid 500 mg tablet,chewabl e 1 tablet/chew tab (500 mg total) 9 Active meloxicam (MOBIC) 7.5 mg tablet Take 1 tablet (7.5 mg total) by mouth daily 5 Active vitamin b complex tablet daily 1 Active testosterone 1.62 % (20.25 mg/1.25 gram) gel in packet daily 9 Active spironolactone -niacinamide 5-4 % gel daily 1 Active Saccharomyces boulardii 10 billion cell capsule 2 (two) times a day 9 Active aspirin 81 mg enteric coated tablet ORAL 7 Active progesterone, micronized (progesterone, bulk,) 100 % powder 300 mg 9 Active Bifidobacteriu m infantis 10.5 mg (10 million cell) tablet,chewabl e 2 (two) times a day 9 Active estradioL (DIVIGEL) 0.25 mg (0.1 %) gel in packet daily 9 Active d-mannose 500 mg capsule 2 (two) times a day 9 Active cmb-ephc-gxuuw -csqj-bhq-bun- in (Digestive Enzymes,mal,la c,inv,) 220 mg capsule daily 9 Active ciclopirox (PENLAC) 8 % solution 5 Active perfluorohexyl octane/PF (MIEBO, PF, OPHT) Administer into affected eye(s) 2 (two) times a day Active dilTIAZem XR 180 mg 24 hr capsule Take 1 capsule (180 mg total) by mouth daily 90 capsule 3 5 Active dilTIAZem XR 180 mg 24 hr capsule daily 9 03/05/20 25 Discontinu ed(Reorder ) Active Problems Problem Noted Date Diagnosed Date Fibrocystic breast changes, bilateral 01/13/2022 Abnormal mammogram 04/19/2021 Arthralgia of hip 08/19/2015 Myofascial pain 08/19/2015 Pain in female pelvis 08/19/2015 Recurrent urinary tract infection 08/19/2015 Encounters Date Type Department Care Team Description 03/06/2025 1:00 PM BRACELET MAKER NOVELTY Office Visit [facility] Allergy and Immunology [address] [place] [address] [address] [place] [address] Nneka Lee NP Adverse effect of drug, sequela (Primary Dx) 03/05/2025 Telephone [facility] Medical [facility] Cardiology [address] [facility] [address] [place] [address] Edy Hunter MD 02/23/2025 8:30 AM CDT Office Visit [facility] Allergy and Immunology [address] [place] [address] [address] [place] [address] Nneka Lee NP Adverse effect of drug, sequela (Primary Dx) 01/24/2025 Telephone [facility] Allergy and Immunology [address] [place] [address] [address] [place] [address] Nneka Lee NP 01/23/2025 11:30 AM CDT Office Visit [facility] Medical Group Cardiology [address] [facility] [address] [place] [address] Edy Hunter MD Preop cardiovascular exam (Primary Dx); Essential hypertension; PSVT (paroxysmal supraventricular tachycardia); Pain of both hip joints 12/25/2024 Results Follow-Up [facility] Medicine Surgery [address] [facility] [place] [address] [place] [address] Merly Duncan, SYDNIE Screening Mammogram Bilateral W Roque 12/22/2024 11:10 AM CDT - 12/22/2024 11:59 PM CDT Hospital Encounter [facility] - Breast Imaging [address] [facility] Floor [address] [place] [address] Encounter for screening; Encounter for screening mammogram for malignant neoplasm of breast Discharge Disposition: Discharge to home or self care 12/22/2024 10:45 AM CDT Office Visit [facility] Medicine Surgery [address] [facility] [place] [address] [place] [address] Merly Duncan, SYDNIE Fibrocystic breast changes of both breasts (Primary [...] you have a drink containing alc ohol? 2-4 times a month 03/06/2025 Average Number of Drinks Not on file 025 Frequency of Binge Drinking Not on file 08/2024 Comments Unknown Sex and Gender Information Value Date Recorded Sex Assigned at Not on file Legal Sex Female 3:06 AM BRACELET MAKER NOVELTY Gender Identity Female 05/15/2021 1:53 PM BRACELET MAKER NOVELTY Sexual Orientation Straight 06/12/2020 10 :17 AM BRACELET MAKER NOVELTY Occupation Industry Job Start Date Job End Date retired Not on file Not on file Not on file Obstetrics History Para Term AB IAB SAB Ectopic Multiple Livin g Live Births 2 Date Outcome GA Total Labor Labor/2nd/3rd Weight Sex Type Anes PTL Janki A1 A5 Name Clin Last Filed Vital Signs Vital Sign Reading Time Taken Comments Blood Pressure 113/72 03/06/2025 12:57 PM BRACELET MAKER NOVELTY Pulse 81 03/06/2025 12:57 PM BRACELET MAKER NOVELTY Temperature 36.6 C (97.9 F) 03/06/2025 12:57 PM BRACELET MAKER NOVELTY Respiratory Rate 20 01/23/2025 11:3 3 AM CDT Oxygen Saturation 95% 03/06/2025 12: 57 PM BRACELET MAKER NOVELTY Inhaled Oxygen Concentration - - Weight 76.6 kg (168 lb 14.4 oz) 025 12:57 PM BRACELET MAKER NOVELTY Height 162.6 cm (5' 4) 03/06/2025 12:5 7 PM BRACELET MAKER NOVELTY Body Mass Index 28.99 03/06/2025 12:57 PM BRACELET MAKER NOVELTY Plan of Treatment Health Maintenance Due Date [...] Procedure Name Priority Date/Time Associated Diagnosis Comments SCAN - LABS 03/06/2025 12:31 PM BRACELET MAKER NOVELTY SCAN - LABS 02/23/2025 7:44 AM CDT ELECTROCARDIOGRAM REPORT Routine 01/23/2025 4:36 PM CDT Preop cardiovascular exam Essential hypertension SCREENING MAMMOGRAM BILATERAL W ROQUE Schedule Routine, Read Routine (OP Routine) 12/22/2024 11:27 AM CDT Encounter for screening Encounter for screening mammogram for malignant neoplasm of breast from Last 3 Months Results * SCAN - LABS (03/06/2025 12:31 PM BRACELET MAKER NOVELTY) us Provider Scanning Final Result * SCAN - LABS (02/23/2025 7:44 AM CDT) us Provider Scanning Final Result * Electrocardiogram Report (01/23/2025 4:36 PM CDT) us Edy Hunter MD ECG ORDERABLES Final Result [...] flagging. Specimen: URINE Site: 08/21/2015 08/21/2015 Insurance [facility] MEDIC[facility] * Guarantor: Estefany Busby Account Type Relation to Patient Date of Phone Billing Address Personal/Family Self 1945 [address] [place] [address] [facility] MEDICARE AET MEDICARE Care Teams Pipefitter Relationship Specialty Start Date End Date Luther Gilmore MD [address] [address] PCP - General Family Practice 10/12/23 Carmen Meneses MD [address] [facility] [address] [place] [address] Referring Physician Obstetrics and Gynecology 07/11/21 Glenda Arias MD [address] [address] Referring Physician Obstetrics and Gynecology 07/11/21 Tejas Larsen MD [address] [address] Referring Physician Orthopedic Surgery 02/20/25
--- OUTSIDE RECORDS SUMMARY | 2025-03-12 00:31 | XMS_ITS | Encounter Summary ---
Author Organization [facility] Address [address] [place] [address] Care Team Providers Care Director Of Partner Marketing Name Role Phone Tray Teresa Primary Care Provider [phone] Luther Gilmore MD Primary Care Provider [phone] Encounter Details Date Type Department Care Team (Late Contact Info) Description 11/09/2019 Lab Requisition [facility] Care DermPath Lab [address] [place] [phone] Faheem Gaines MD [address] [place] [address] Social History Tobacco Use Types Packs/Day Years Used Date Smoking Tobacco: Never Smokeless Tobacco: Never Alcohol Use Standard Drinks/Week Comments No 0 (1 standard drink = 0.6 oz pur e alcohol) Comments No Sex and Gender Information Value Date Recorded Sex Assigned at Not on file Legal Sex Female 6:23 AM DOCUMENTATION NURSE Gender Identity Not on file Sexual Orientation Not on file documented as of this encounter Plan of Treatment Upcoming Encounters Date Type Department Care Team (Late Contact Info) Description 03/20/2025 1:00 PM DOCUMENTATION NURSE Office Visit [facility] - [facility]AL [facility]OOK[facility] [address], [facility] [address] [place] [address] Vipul Arteaga Che, MD [address] [facility] [address] [place] [address] documented as of this encounter Procedures Procedure Name Priority Date/Time Associated Diagnosis Comments DERMATOPATHOLOGY Routine 11/08/2019 12:0 0 AM CDT documented in this encounter Results * DERMATOPATHOLOGY (11/08/2019 12:00 AM CDT) Case Report Dermatopathology Report Case: [id number] Authorizing Provider: Faheem Gaines MD Collected: 11/08/2019 12:00 AM Ordering Location: [facility] DermPath Lab Received: 11/09/2019 11:34 AM [...] of a shave (2 pieces) biopsy measuring [id number], [id number]. Jar 0. 0 4:45 PM CDT DERMATOPATHOLOGY [...] characteristic determined by the Dermatopathology Laboratory at [facility], directed by Dr. Miguel Levine. These tests need not be, and therefore are not, approved by the [place] Food and Drug Administration. The tests are used for clinical purposes. Billing Codes Specimen Charges Stain Charges 09245 1 0 4:45 PM CDT DERMATOPATHOLOGY LABORATORY Embedded Images 0 4:45 PM CDT DERMATOPATHOLOGY LABORATORY Pathology/Cytolog y TISSUE SPECIMEN FROM SKIN / Unknown 11/08/2019 11/09/2019 11:34 AM CDT Faheem Gaines MD LAB - PATHOLOGY/CYTOLOGY ORD ERABLES Final Result DERMATOPATHOLOGY LABORATORY [facility] - Department of Dermatology Supervisor [facility]/[address] [phone] documented in this encounter Visit Diagnoses Not on filedocumented in this encounter Care Teams Director Of Partner Marketing Relationship Specialty Start Date End Date Tray Teresa DO [address] [place] [address] PCP - General 12/27/18 09/13/23 Luther Gilmore MD [address] [place] [address] PCP - General Family Medicine 09/14/23 documented as of this encounter
--- OUTSIDE RECORDS SUMMARY | 2025-03-12 00:31 | XMS_ITS | Encounter Summary ---
Author Organization [facility] Address [address] [place] [address] Care Team Providers Care Transportation Associate Name Role Phone Terrance Suárez MD Primary Care Provider Unavail able Tray Teresa DO Primary Care Provider [phone] Luther Gilmore MD Primary Care Provider [phone] Encounter Details Date Type Department Care Team (Late Contact Info) Description 08/18/2018 Lab Requisition [facility] Care DermPath Lab [address] [facility] [place] [address] Faheem Gaines MD [address] [place] [address] Social History Tobacco Use Types Packs/Day Years Used Date Smoking Tobacco: Never Smokeless Tobacco: Never Alcohol Use Standard Drinks/Week Comments No 0 (1 standard drink = 0.6 oz pur e alcohol) Comments No Sex and Gender Information Value Date Recorded Sex Assigned at Not on file Legal Sex Female 6:23 AM OLD TESTAMENT PROFESSOR Gender Identity Not on file Sexual Orientation Not on file documented as of this encounter Plan of Treatment Upcoming Encounters Date Type Department Care Team (Late Contact Info) Description 03/20/2025 1:00 PM OLD TESTAMENT PROFESSOR Office Visit [facility] - COLLECTION SUPERVISOR [address] [place] [address] Vipul Arteaga Che, MD [address] [place] [address] documented as of this encounter Procedures Procedure Name Priority Date/Time Associated Diagnosis Comments DERMATOPATHOLOGY Routine 08/17/2018 12:0 0 AM CDT documented in this encounter Results * DERMATOPATHOLOGY (08/17/2018 12:00 AM CDT) Case Report Dermatopathology Report Case: [id number] Authorizing Provider: Faheem Gaines MD Collected: 08/17/2018 [...] characteristic determined by the Dermatopathology Laboratory at [facility], directed by Dr. Miguel Levine. These tests need not be, and therefore are not, approved by the [place] Food and Drug Administration. The tests are used for clinical purposes. Billing Codes Specimen Charges Stain Charges 68929 1 9 12:51 PM CDT DERMATOPATHOLOGY LABORATORY Embedded Images 9 12:51 PM CDT DERMATOPATHOLOGY LABORATORY Pathology/Cytolog y TISSUE SPECIMEN FROM SKIN / Unknown 08/17/2018 08/18/2018 1:38 PM CDT Faheem Gaines MD LAB - PATHOLOGY/CYTOLOGY ORD ERABLES Final Result DERMATOPATHOLOGY LABORATORY [facility] - Department of Dermatology [address] [place] [address], 5th Floor Lab [address] [phone] documented in this encounter Visit Diagnoses Not on filedocumented in this encounter Care Teams Transportation Associate Relationship Specialty Start Date End Date Terrance Suárez MD PCP - General 08/13/17 12/26/18 Tray Teresa DO [address] [place] [address] PCP - General 12/27/18 09/13/23 Luther Gilmore MD [address] [place] [address] PCP - General Family Medicine 09/14/23 documented as of this encounter
--- OUTSIDE RECORDS SUMMARY | 2025-03-12 00:31 | XMS_ITS | Clinical Summary ---
Author Organization [facility] Address [address] [facility] [place] [address] Care Team Providers Care Pipe Coverer And Insulator Name Role Phone Luther Gilmore MD Primary Care Provider [phone] Source Comments [facility],non-owned Affiliates and Associated Physician Practices is amultiple site organization consisting of ambulatory clinics and hospital sitesin [place], [place], [place] and [place]. This disclosure is being madepursuant to the Care Everywhere program and may not contain all information available regarding this patient. Last updated 18.[facility] Allergies Active Allergy Reactions Criticality Noted Date Comments Augmentin Diarrhea 08/25/2018 Cephalexin Rash Medium 05/09/2021 Can use cefdinir Lactose Rash Medium Lactose Rash Medium 12/27/2018 Sulfamethoxazole W-Trimethoprim Rash Medium /10/2014 Medications * Be aware that medications may not be up to date on this document. Alwaysverify current medications with the patient. aspirin EC (Ecotrin) 81 MG tablet 1 (one) tablet 6 Active fluticasone propionate (FLONASE) 50 MCG/ACT nasal spray 8 Active pravastatin (PRAVACHOL) 20 MG tablet 8 Active cycloSPORINE (Restasis) 0.05 % ophthalmic suspension 2 times daily Activ e testosterone 0.1% CREA compd cream Apply to affected area once daily Active progesterone 150 mg 150 mg capsule Take 1 (one) capsule by mouth at bedtime Active THYROID POIndications:T 3, T4 compounded Reasons: T3, T4 compounded Active vitamin C (ASCORBIC ACID) 1000 MG tablet Take 1 (one) tablet by mouth once daily Active dilTIAZem ER 24hr (TIAZAC) 180 MG capsule TAKE 1 CAPSULE(180 MG) BY MOUTH DAILY 1 Active DILT-XR 180 MG capsule 1 Active spironolactone (ALDACTONE) 100 MG tablet 1 Active azelastine (Astelin) 0.1 % nasal spray USE 2 SPRAYS IN EACH NOSTRIL TWICE DAILY 2 Active Cholecalciferol 250 MCG (87206 UT) TABS Active esomeprazole (NexIUM) 40 MG capsule Take 1 (one) capsule by mouth once daily 2 Active ipratropium (Atrovent) 0.03 % nasal spray 2 SPRAYS IN EACH NOSTRIL NASALLY NEEDED FOR 30 DAYS 2 Active Progesterone 100 MG capsule Take 3 (three) capsules by mouth once daily Active saccharomyces (Florastor Extra Str) 250 MG capsule Take 1 (one) capsule by mouth 2 times daily Active triamcinolone acetonide (Kenalog) 0.025 % cream APPLY TOPICALLY TO AFFECTED AREA ON LEFT FOREARM TWICE DAILY DIRECTED 2 Active EPINEPHrine (Epipen) 0.3 MG/0.3ML auto-injector pen Inject 0.3 mL into muscle once as needed for Anaphylaxis 0.6 mL 1 3 Active cholestyramine (Questran) 4 g packet 3 Active diazePAM (Valium) 5 MG tablet 2 Active estradiol (Estrace) 0.5 MG tablet Take 5 (five) tablets by mouth once daily Active mirabegron ER 24hr (Myrbetriq) 50 MG tablet Take 1 (one) tablet by mouth once daily 90 tablet 3 5 Active trimethoprim (Trimpex) 100 MG tablet TAKE 1 TABLET BY MOUTH DAILY 90 tablet 4 5 Active nitrofurantoin monohyd macro crystals (Macrobid) 100 MG capsuleIndicati ons:Urinary Tract Infection Take 1 (one) capsule by mouth 2 times daily with morning and evening meal Reasons: Urinary Tract Infection 14 capsule 5 Active cefUROXime (Ceftin) 250 MG tablet Take 1 (one) tablet by mouth every 12 hours for 5 days 10 tablet 5 03/11/20 25 Active Problems Problem Noted Date Diagnosed Date 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 Arthralgia of hip 08/19/2015 Myofascial pain 08/19/2015 Recurrent urinary tract infection 08/19/2015 Overactive bladder 10/13/2007 Resolved Problems Problem Noted Date Diagnosed Date Resolved Date Pain in female pelvis 08/19/20152017 Encounters Date Type Department Care Team Description 02/07/2025 Results Follow-Up [facility] - SURFACE TO AIR WEAPONS OFFICER [address] [place] [address] Vipul Arteaga Che, MD 01/18/2025 Refill [facility] - SURFACE TO AIR WEAPONS OFFICER [address], [address] [place] [address] Vipul Arteaga Che, MD Refill Request from Last 3 Months Immunizations Immunization Administration [...] on file Legal Sex Female 6:23 AM PONY EDGER Gender Identity Not on file Sexual Orientation [...] st Contact Info) Description 03/20/2025 1:00 PM PONY EDGER Office Visit [facility] - SURFACE TO AIR WEAPONS OFFICER [address], [address] [place] [address] Vipul Arteaga Che, MD [address] [facility] [address] [place] [address] Health Maintenance Due Date Last [...] history exists DEPRESSION SCREENING Completed 09/19/2024, 09/14/19 HEPATITIS B VACCINE Aged Out No longe [...] PM CDT) Urine Culture Routine Final report(A) [facility] INSURANCE BILL Comment: Performed at: [address] [id number] Fur Storage Clerk: Fantasma Rivas PhD, Phone: [phone] Result 1 Escherichia coli(A) [facility] INSURANCE BILL Comment: Cefazolin with an ANNALISE <=16 predicts susceptibility to the oral agents cefaclor, cefdinir, cefpodoxime, cefprozil, cefuroxime, cephalexin, and loracarbef when used for therapy of uncomplicated urinary tract infections due to E. coli, Klebsiella pneumoniae, and Proteus mirabilis. Multi-Drug Resistant Organism Greater than 100,000 colony forming units per mL Antimicrobial Susceptibility Comment [facility] INSURANCE BILL Comment: S = Susceptible; I [...] 02/05/2025 3:13 PM CDT 02/05/2025 Comment:UR Narrative [facility] - 02/08/2025 6:09 AM CDT Performed at: [address] [id number] [employer] Clerk: Fantasma Rivas PhD, Phone: [phone] [facility] Betsy Arteaga MD LAB - MICROBIOLOGY ORDERABLES F inal Result [facility] INSURANCE BILL [address] [place] [address] from Last 3 Months Insurance [facility] MANA[facility]ED MEDICARE ADV AETNA AETNA MEDICARE ADV Care Teams Pipe Coverer And Insulator Relationship Specialty Start Date End Date Luther Gilmore MD [address] [place] [address] PCP - General Family Medicine 09/14/23
--- OUTSIDE RECORDS SUMMARY | 2025-03-12 00:31 | XMS_ITS | Encounter Summary ---
Author Organization [facility] Address [facility] [place] [address] Care Team Providers Care School Social Worker Name Role Phone Luther Gilmore MD Primary Care Provider [phone] Encounter Details Date Type Department Care Team (Late st Contact Info) Description 02/07/2025 Results Follow-Up [facility] - NAIL SPECIALIST [address], [place] [facility] [address] [place] [address] Vipul Arteaga Che, MD [address] [facility] [facility] [address] [place] [address] Social History Tobacco Use Types Packs/Day Years Used Date Smoking Tobacco: Never Smokeless Tobacco: Never Alcohol Use Standard Drinks/Week Comments No 0 (1 standard drink = 0.6 oz pur e alcohol) PHQ-2 Answer Date Recorded Patient Health Questionnaire-2 Score 0 11/21/2024 Comments No Sex and Gender Information Value Date Recorded Sex Assigned at Not on file Legal Sex Female 6:23 AM BEACH ATTENDANT Gender Identity Not on file Sexual Orientation [...] st Contact Info) Description 03/20/2025 1:00 PM BEACH ATTENDANT Office Visit [facility] - NAIL SPECIALIST [address], [place] [facility] [address] [place] [address] Vipul Arteaga Che, MD [address] [facility] [address] [place] [address] documented as of this encounter Visit Diagnoses Not on filedocumented in this encounter Care Teams School Social Worker Relationship Specialty Start Date End Date Luther Gilmore MD [address] [place] [address] PCP - General Family Medicine 09/14/23 documented as of this encounter
--- OUTSIDE RECORDS SUMMARY | 2025-03-12 00:31 | XMS_ITS | Encounter Summary ---
Author Organization [facility] Address [address] [place] [address] Care Team Providers Care Sheetmetal Patternmaker Name Role Phone Terrance Suárez MD Primary Care Provider Unavail able Tray Teresa DO Primary Care Provider [phone] Luther Gilmore MD Primary Care Provider [phone] Encounter Details Date Type Department Care Team (Late Contact Info) Description 06/22/2018 Lab Requisition [facility] Care DermPath Lab [address] [facility], [place] [address] Faheem Gaines MD [address] [place] [address] Social History Tobacco Use Types Packs/Day Years Used Date Smoking Tobacco: Never Smokeless Tobacco: Never Alcohol Use Standard Drinks/Week Comments No 0 (1 standard drink = 0.6 oz pur e alcohol) Comments No Sex and Gender Information Value Date Recorded Sex Assigned at Not on file Legal Sex Female 6:23 AM CLINICAL TRIAL LEADER Gender Identity Not on file Sexual Orientation Not on file documented as of this encounter Plan of Treatment Upcoming Encounters Date Type Department Care Team (Late Contact Info) Description 03/20/2025 1:00 PM CLINICAL TRIAL LEADER Office Visit [facility] - 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 PRESIDENT SALES [employer] MARKETING [address] [place] [address] Vipul Arteaga Che, MD [address] [place] [address] documented as of this encounter Procedures Procedure Name Priority Date/Time Associated Diagnosis Comments DERMATOPATHOLOGY Routine 06/21/2018 12:0 0 AM CLINICAL TRIAL LEADER documented in this encounter Results * DERMATOPATHOLOGY (06/21/2018 12:00 AM CLINICAL TRIAL LEADER) Case Report Dermatopathology Report Case: [id number] Authorizing Provider: Faheem Gaines MD Collected: 06/21/2018 12:00 AM Pathologist: Zay Levine MD Received: 06/22/2018 12:11 PM Specimen: Skin, floor of left nares 9 4:21 PM [facility] DERMATOPATHOLOGY LABORATORY Final Diagnosis Specimen A. SKIN, floor of left nares: BENIGN VERRUCOUS KERATOSIS (L82.1) 9 4:21 PM [facility] DERMATOPATHOLOGY LABORATORY at [address] [facility] Clinical History R/O ISK vs other neoplasm. 9 4:21 PM [facility] DERMATOPATHOLOGY LABORATORY Gross Description Specimen A: Received is one formalin filled container labeled with the patient's name and designated floor of left nares. The specimen consists of a shave biopsy measuring 4x3x1 mm. Jar 0. 9 4:21 PM [facility] DERMATOPATHOLOGY LABORATORY Microscopic Description Specimen A. SKIN, floor of left nares: Sections show hyperkeratosis, papillomatosis, hypergranulosis, and acanthosis. These histological findings can be seen in a verruca vulgaris or a seborrheic keratosis. 9 4:21 PM [facility] DERMATOPATHOLOGY LABORATORY Disclaimer An external and internal positive and negative controls are appropriate for the histochemical, immunohistochemical and immunofluorescence stain(s) in this case (if any), except where stated explicitly. The performance characteristics of the stain(s) cited in this report were developed and its performance characteristic determined by the Dermatopathology Laboratory at [facility], directed by Dr. Miguel Levine. These tests need not be, and therefore are not, approved by the [place] Food and Drug Administration. The tests are used for clinical purposes. Billing Codes Specimen Charges Stain Charges 83247 1 9 4:21 PM CLINICAL TRIAL LEADER DERMATOPATHOLOGY LABORATORY Embedded Images 9 4:21 PM CLINICAL TRIAL LEADER DERMATOPATHOLOGY LABORATORY Pathology/Cytolog y TISSUE SPECIMEN FROM SKIN / Unknown 06/21/2018 06/22/2018 12:11 PM CLINICAL TRIAL LEADER Faheem Gaines MD LAB - PATHOLOGY/CYTOLOGY ORD ERABLES Final Result DERMATOPATHOLOGY LABORATORY [facility] - Department of Dermatology [address] [place] [address], 5th Floor Lab [address] [phone] documented in this encounter Visit Diagnoses Not on filedocumented in this encounter Care Teams Sheetmetal Patternmaker Relationship Specialty Start Date End Date Terrance Suárez MD PCP - General 08/13/17 12/26/18 Tray Teresa DO [address] [place], [place] [id number] PCP - General 12/27/18 09/13/23 Luther Gilmore MD [address] [place], [place] [id number] PCP - General Family Medicine 09/14/23 documented as of this encounter
--- OUTSIDE RECORDS SUMMARY | 2025-03-12 00:31 | XMS_ITS | Encounter Summary ---
Author Organization [facility] Address [address] [place] [address] Care Team Providers Care Parts Designer Name Role Phone Tray Teresa Primary Care Provider [phone] Luther Gilmore MD Primary Care Provider [phone] Encounter Details Date Type Department Care Team (Late Contact Info) Description 09/06/2023 Lab Requisition [facility] - DermPath Lab [address] [facility] [place] [id number] Faheem Gaines MD [address] [place] [address] Social History Tobacco Use Types Packs/Day Years Used Date Smoking Tobacco: Never Smokeless Tobacco: Never Alcohol Use Standard Drinks/Week Comments No 0 (1 standard drink = 0.6 oz pur e alcohol) Comments No Sex and Gender Information Value Date Recorded Sex Assigned at Not on file Legal Sex Female 6:23 AM OVEN PRESS TENDER Gender Identity Not on file Sexual Orientation Not on file documented as of this encounter Plan of Treatment Upcoming Encounters Date Type Department Care Team (Late Contact Info) Description 03/20/2025 1:00 PM OVEN PRESS TENDER Office Visit [facility] - PRINTING MACHINIST [address] [place] [address] Vipul Arteaga Che, MD [address] [place] [address] documented as of this encounter Procedures Procedure Name Priority Date/Time Associated Diagnosis Comments DERMATOPATHOLOGY Routine 09/01/2023 12:0 0 AM CDT documented in this encounter Results * DERMATOPATHOLOGY (09/01/2023 12:00 AM CDT) Case Report Dermatopathology Report Case: [id number] Authorizing Provider: Faheem Gaines MD Collected: 09/01/2023 12:00 AM Ordering Location: [facility] - Received: 09/06/2023 10:12 [...] characteristic determined by the Dermatopathology Laboratory at [facility], directed by Dr. Miguel Levine. These tests need not be, and therefore are not, approved by the [place] Food and Drug Administration. The tests are used for clinical purposes. Billing Codes Specimen Charges Stain Charges 91009 1 4 12:33 PM CDT DERMATOPATHOLOGY LABORATORY Embedded Images 4 12:33 PM CDT DERMATOPATHOLOGY LABORATORY Pathology/Cytolog y TISSUE SPECIMEN FROM SKIN / Unknown 09/01/2023 09/06/2023 10:12 AM CDT us Faheem Gaines MD LAB - PATHOLOGY/CYTOLOGY ORD ERABLES Final Result DERMATOPATHOLOGY LABORATORY [facility] - Department of Dermatology [address], [address] [phone] documented in this encounter Visit Diagnoses Not on filedocumented in this encounter Care Teams Parts Designer Relationship Specialty Start Date End Date Tray Teresa DO [address] [place] [address] PCP - General 12/27/18 09/13/23 Luther Gilmore MD [address] [place] [address] PCP - General Family Medicine 09/14/23 documented as of this encounter
--- OUTSIDE RECORDS SUMMARY | 2025-03-12 00:31 | XMS_ITS | Data Portability ---
Author Organization [facility], Main Office Address [address] [place] [address] Care Team Providers Care Import/Export Specialist Name Role Phone MICHAEL ZAMBRANO Primary Care Provider MICHAEL ZAMBRANO Referring Provider [phone] Assessment Encounter Date Assessment Date Assessment LastModified by Organization Details LastModified Time 09/06/2023 09/06/2023 Patient has right knee pain with some mild swelling of the right lower extremity compared to the opposite side. X-rays today shows some moderate narrowing in the medial compartments of both knees patellofemoral articulations show mild narrowing otherwise unremarkable. No acute bony trauma is noted. I think she has pain related to overuse of her right knee she has some mild to moderate primary osteoarthritis as described. One concern could be possibility of a DVT although I think it is unlikely we will send her over for a venous duplex scan to be sure as she does have obvious swelling of the right lower extremity as well as some calf tenderness. If this is negative she is instructed to work on range of motion rest and ice of the knee joint, if it is positive we will get her on blood thinners. We will send her over to the hospital now for a stat venous duplex scan of the right lower extremity. I did offer her shot of cortisone into the right knee joint she declined. I am going to give her prednisone pills instead at her request. She declined any other further oral anti-inflammator ies. I will see her back in couple of weeks to see how she is doing. If her symptoms continue we may push further for a knee injection. She voiced understanding agrees above plan she will call for any further problems difficulties or questions. If her venous duplex scan is negative she is going to work on elevation for swelling control as well and possibly use compression stocking. [email or web address] Not available 09/06/2023 12:52:10 Plan of Treatment Reminders Order Date Submit Date Provider Last Modified By Organization Details Last Modified Time Details Appointments None recorded. Lab None recorded. Referral None recorded. Procedures None recorded. Surgeries None recorded. Imaging US, duplex, venous, lower extremity - Please contact Harrison Orozco PA-C with results [phone] [address] [facility], [address], [place], [address], 13:04:34 XR, knee 2023 [address] [place] [address] [facility] [place], [address], [place], [address], 13:04:34 Medication Orders prednisone 10 mg tablets in a dose pack 2023 [address] [place] [address] [id number], [address], [place], [phone], 13:04:34 Patient TargetsNo targets recorded. Patient InstructionsNo instructions recorded. Reason for Referral None Reported. Results Created Date Observation Date Name Description Value Unit Range Abnormal Flag Note LastModifiedBy Organization Detail LastModifiedTime 09/06/19 24 XR, knee No observ ation record ed. [place] [address] [facility] [address], [place], [address], 09/06/2023 12:52:46 09/06/1909/06/2023 , tawnya degroot s, lower extre mity No observ ation record ed. [address], [place], [address], 09/06/2023 13:21:13 09/06/19 24 09/06/2023 USnela venou s, lower extre mity No observ ation record ed. [address], [place], [address], 09/06/2023 13:21:13 Result Notes None recorded. Problems Name Problem SNOMED Code Status Onset Date Resolution Date Notes Provider Name and Address Organization Details Recorded Time Pain of right knee joint 833433736062055 [facility]:06[facility] Swelling of lower leg 563908607 [facility]:33[facility]59 Problem Notes None recorded. Procedures Surgical History Date Name Laterality Status Provider Name and Address Organization Details Recorded Time Hysterectomy completed HAYDEN Sky [facility] 09/06/2023 11:02:49 Back Surgery completed HAYDEN Sky [facility] 09/06/2023 11:06:21 Imaging Results None recorded. Procedure Notes None recorded. Medical Equipment None Reported. Allergies Allergen ID Allergen Name Allergen Category Reaction Reaction Severity Criticality Documentation Date Start Date Code Code System Note Provider Name and Address Organization Details Recorded Time 51022 Product containin g penicilli n (product) medicatio n Not available Not available Not available 09/06/2023 81224 8001 [facility]ED [facility] 10:57[facility]19 Medications Name Sig Start Date Stop Date Status Note LastModified by Organization Details LastModified Time celecoxib 200 mg capsule 09/05 completed Not Available Not Available Not Available prednisone 10 mg tablet TAKE 1 TABLET BY MOUTH THREE TIMES DAILY FOR 3 DAYS THEN TAKE 1 TABLET BY MOUTH TWICE DAILY FOR 2 DAYS THEN TAKE 1 TABLET BY MOUTH ONCE FOR 1 DAY active Not Available Not Available No t Available ketoconazol e 2 % shampoo APPLY TOPICALLY TO THE SCALP DAILY NEEDED active Not Available Not Available No t Available azithromyci n 250 mg tablet 09/05 completed Not Available Not Available Not Available ranitidine 300 mg tablet 09/05 completed Not Available Not Available Not Available prednisone 20 mg tablet TAKE 2 TABLETS BY MOUTH DAILY 09/05 completed Not Available Not Available Not Available ciprofloxac in 250 mg tablet TAKE 1 TABLET BY MOUTH TWICE DAILY 09/05 completed Not Available Not Available Not Available trimethopri m 100 mg tablet TAKE 1 TABLET BY MOUTH EVERY DAY active Not Available Not Available No t Available ciprofloxac in 500 mg tablet 09/05 completed Not Available Not Available Not Available sulfamethox azole 800 mg-trimetho prim 160 mg tablet 09/05 completed Not Available Not Available Not Available spironolact one 25 mg tablet 09/05 completed Not Available Not Available Not Available prednisone 10 mg tablets in a dose pack Take 1 tab by mouth, 3 times a day for 3 daysTake 1 tab by mouth 2 times a day for 2 daysTake 1 tab by mouth once a day for 1 day 2023 active Not Available Not Available Not Avai lable levothyroxi ne 100 mcg tablet 09/05 completed Not Available Not Available Not Available methenamine hippurate 1 gram tablet TK 1 T PO BID 09/05 completed Not Available Not Available Not Available cephalexin 500 mg capsule TAKE 1 TABLET BY MOUTH EVERY 12 HOURS FOR 10 DAYS 09/05 completed Not Available Not Available Not Available esomeprazol e magnesium 40 mg capsule,del ayed release TAKE 1 CAPSULE BY MOUTH DAILY active Not Available Not Available No t Available losartan 25 mg tablet 09/05 completed Not Available Not Available Not Available pravastatin 20 mg tablet TAKE 1 TABLET BY MOUTH DAILY 09/05 completed Not Available Not Available Not Available hydrochloro thiazide 25 mg tablet 09/05 completed Not Available Not Available Not Available estradiol 0.5 mg tablet TK 1 T PO QD UTD 09/05 completed Not Available Not Available Not Available epinephrine 0.3 mg/0.3 mL injection, auto-inject or ADMINISTE R 0.3 ML IN THE MUSCLE ONCE NEEDED FOR ANAPHYLAX IS 09/05 completed Not Available Not Available Not Available levofloxaci n 750 mg tablet TK 1 T PO ONCE D 09/05 completed Not Available Not Available Not Available fluocinonid e 0.05 % topical cream 09/05 completed Not Available Not Available Not Available cefdinir 300 mg capsule TAKE 1 CAPSULE BY MOUTH EVERY 12 HOURS FOR 7 DAYS 09/05 completed Not Available Not Available Not Available ipratropium bromide 21 mcg (0.03 %) nasal spray USE 2 SPRAYS IN EACH NOSTRIL DAILY NEEDED active Not Available Not Available No t Available spironolact one 50 mg tablet TAKE 1 TABLET BY MOUTH EVERY DAY active Not Available Not Available No t Available Estrace 0.01% (0.1 mg/gram) vaginal cream 09/05 completed Not Available Not Available Not Available Restasis 0.05 % eye drops in a dropperette 09/05 completed Not Available Not Available Not Available Premarin 0.3 mg tablet 09/05 completed Not Available Not Available Not Available nitrofurant oin monohydrate /macrocryst als 100 mg capsule TAKE 1 CAPSULE BY MOUTH TWICE DAILY WITH THE MORNING AND EVENING MEALS FOR UTI 09/05 completed Not Available Not Available Not Available DILT-XR 180 mg capsule, extended release TAKE 1 CAPSULE BY MOUTH DAILY active Not Available Not Available No t Available Boostrix Tdap 2.5 Lf unit-8 mcg-5 Lf/0.5 mL intramuscul ar syringe ADM 0.5ML IM UTD 09/05 completed Not Available Not Available Not Available Pataday 0.2 % eye drops 09/05 completed Not Available Not Available Not Available hydrochloro thiazide 12.5 mg tablet 09/05 completed Not Available Not Available Not Available Vagifem 10 mcg vaginal tablet 09/05 completed Not Available Not Available Not Available Prevnar 13 (PF) 0.5 mL intramuscul ar syringe ADM 0.5ML IM UTD 09/05 completed Not Available Not Available Not Available Prepopik 10 mg-3.5 gram-12 gram oral powder packet TK UTD 09/05 completed Not Available Not Available Not Available loteprednol etabonate 0.5 % eye gel drops INSTILL 1 DROP IN EACH EYE TWICE DAILY FOR 1 WEEK active Not Available Not Available No t Available Fluad 65yr up(PF)45 mcg(15 mcgx3)/0.5 mL intramuscul ar syringe ADM 0.5ML IM UTD 09/05 completed Not Available Not Available Not Available Restasis MultiDose 0.05 % eye drops INSTILL 1 DROP INTO EACH EYE TWICE DAILY active Not Available Not Available No t Available Vitals Date Recorded Body height Body mass index (BMI) Body weight Provider Name and Address Organization Details Last Updated DateTime 09/06/2023 162.56 cm 27.5 kg/m2 00566.78 g [facility] [place] [facility] [place] [employer] 09/06/2023 10:57:03 Social History None recorded. Functional Status Question Answer Note LastModified by Organization D etails LastModified Time What is your level of alcohol consumption? None [email or web address] Information not available 09/06/2023 Mental Status None recorded. Family History Relationship Description Onset Age of this Age Resolved Age Notes LastModified by Organization Details LastModified Time Mother Hypertensive disorder [email or web address] Not available 2023 11:01:46 Father Hypertensive disorder [email or web address] Not available 2023 11:01:46 Medical History Condition Response ARTHRITIS Y Gynecological HistoryNo gynecological history recorded. Obstetrics History GPAL:G 0 P 0 0 0 0 Past Encounters Encounter ID Performer Location Encounter Start Date Encounter Closed Date Diagnosis/Indication Diagnosis SNOMED-CT Code Diagnosis ICD10 Code Diagnosis IMO Codes Diagnosis Note [id number] Eugene Rudolph MD [facility] [place] [address] [place] [address] 09/06/2023 10:41:35 09/06/2023 11:51:15 Pain of right knee joint 9011690311 01430 M25.561 Swelling of lower leg 44 9622483 R22.41 Health Concerns Section Related Observation LastModified by Organization Detai ls LastModified Time None Recorded Concern Status LastModified by Organization Details LastModified Time None Recorded Advance Directives Directive None Recorded Payers Insurance Date Sequence Insurance Name Policy Number Policy Quintero Covered Member ID Quintero Member ID Guarantor Name 09/14/2023 1 [facility] (MEDICARE REPLACEMENT/ ADVANTAGE - PPO) [id number] Estefany Busby [id number] Estefany Busby 09/01/2023 1 [facility] (MEDICARE REPLACEMENT/ ADVANTAGE - PPO) [id number] Estefany Busby [id number] Estefany Busby Notes Date Note Type Note Provider Name and Address Organization Details Recorded Time 09/06/2023 text/html The patient is an 78-year-old female who presents with a one-month history of right knee pain. She and her state that she was up and down on a ladder cleaning out some gutters recently and she thinks this has aggravated her knee. She now has some generalized knee pain along with some mild calf tenderness and some mild swelling throughout the right lower extremity compared to the opposite side this goes from the knee to the ankle. She denies any specific trauma or injury he has never had a history of blood clots. She has no erythema heat or other signs of infection. Denies any weakness just mainly deep aching pain in the knee joint itself with some radicular pain into the calf at times. Despite rest and activity modification her symptoms continue. She states the pain is about a 5 on a scale 1-10. She has a mild limp she comes in today for initial evaluation treatment states she can not stand or walk for long periods as this aggravates her symptoms,has trouble going up and down stairs.a new past medical history sheet was reviewed and signed on the intake sheet of today's date drug allergies current medications family social history previous surgical history 10 point review of systems was reviewed and discussed in detail today with the patient. BRIAN Tucker [address] [facility] [facility] [address], [place], [address], [place] [facility] 09/06/2023 12:53:54 OBGyn Episode No OBEpisode recorded.
--- OUTSIDE RECORDS SUMMARY | 2025-03-12 00:31 | XMS_ITS | Patient Health Record ---
Author Organization [facility] Address [address] [place], [place] [id number] Care Team Providers Care Relationship Assoc Name Role Phone PERNELL MARTE Unavailable [phone] Terrance Suárez Unavailable Unavailable Allergies No Known Allergies Reason For Referral No Information Medications Medication SIG (Take, Route, Frequency, Duration) Notes Start Date End Date Status esomeprazole 40 MG Delayed Release Oral Capsule [Nexium] ORAL esomeprazole 40 MG Delayed Release Oral Capsule [Nexium]Original Medicationesomeprazole 40 MG Delayed Release Oral Capsule [Nexium] *Reorder from [email or web address] for eRx and Interaction Alerts* 017 Active cyclosporine 0.5 MG/ML Ophthalmic Suspension [Restasis] cyclosporine 0.5 MG/ML Ophthalmic Suspension [Restasis]Original Medicationcyclosporine 0.5 MG/ML Ophthalmic Suspension [Restasis] *Reorder from [email or web address] for eRx and Interaction Alerts* 017 Active ciclopirox 80 MG/ML Topical Solution ciclopirox 80 MG/ML Topical SolutionOriginal Medicationciclopirox 80 MG/ML Topical Solution *Reorder from [email or web address] for eRx and Interaction Alerts* 017 Active Bifidobacterium infantis 4 MG Oral Capsule [Align] ORAL Bifidobacterium infantis 4 M G Oral Capsule [Align]Original MedicationBifidobacterium infantis 4 MG Oral Capsule [Align] *Reorder from [email or web address] for eRx and Interaction Alerts* 017 Active aspirin 81 MG Delayed Release Oral Tablet ORAL aspirin 81 MG Delayed Releas e Oral TabletOriginal Medicationaspirin 81 MG Delayed Release Oral Tablet *Reorder from [email or web address] for eRx and Interaction Alerts* 017 Active Progesterone 200 MG Oral Capsule ORAL progesterone 200 MG Oral CapsuleOriginal Medicationprogesterone 200 MG Oral Capsule *Reorder from [facility] for eRx and Interaction Alerts* 017 Active hydroCHLOROthiazide 12.5 MG Oral Capsule ORAL hydrochlorothiazide 12.5 MG Oral CapsuleOriginal Medicationhydrochlorothiazide 12.5 MG Oral Capsule *Reorder from [facility] for eRx and Interaction Alerts* 017 Active Ciclopirox 8 % Solution 1 application Externally Once a day to toenails.; Duration: 30 days Remove medication once a week with rubbing alcohol. one bottle, 6.6mL or similar. 025 2025 Active Losartan Potassium 25 MG Oral Tablet ORAL losartan potassium 25 MG Ora l TabletOriginal Medicationlosartan potassium 25 MG Oral Tablet *Reorder from [facility] for eRx and Interaction Alerts* 017 Active Pravastatin Sodium 20 MG Oral Tablet ORAL pravastatin sodium 20 MG Ora l TabletOriginal Medicationpravastatin sodium 20 MG Oral Tablet *[facility] and Interaction Alerts* 017 Active Estradiol 2 MG Oral Tablet ORAL estradiol 2 MG Oral TabletOriginal Medicationestradiol 2 MG Oral Tablet *Reorder from [facility] for eRx and Interaction Alerts* 017 Active olopatadine 2 MG/ML Ophthalmic Solution [] olopatadine 2 MG/ML Ophthalm ic Solution []Original Medicationolopatadine 2 MG/ML Ophthalmic Solution [] *Reorder from [facility] for eRx and Interaction Alerts* 017 Active liothyronine sodium 0.005 MG Oral Tablet ORAL liothyronine sodium 0.005 MG Oral TabletOriginal Medicationliothyronine sodium 0.005 MG Oral Tablet *[facility] for [facility]Rx and Interaction Alerts* 017 Active Social History Social History Additional Details Category Social Info Options Details Migrated Social History Migrated Social History Smoking Status : Never smoked , Alcohol intake : , History of tobacco use : Vital Signs Height-cm 162.56 cm 01/15/2025 Weight-kg 77.11 kg 01/15/2025 Height 64.00 in 01/15/2025 Weight 170 lbs 01/15/2025 BMI 29.18 kg/m2 01/15/2025 Encounters Encounter Location Date Provider Diagnosis [facility] [address] [place], [place] [id number] 01/15/2025 PERNELL MARTE Idiopathic gout, rig ht [...] Date Coverage End Date [employer] [id number] ANNA MARIE DE OLIVEIRA [phone] [id number] CHICHO AJ Self - patient is the insured
--- OUTSIDE RECORDS SUMMARY | 2025-03-12 00:31 | XMS_ITS | Encounter Summary ---
Author Organization [facility] Address [address] [place] [address] Care Team Providers Care Stave Block Splitter Name Role Phone Tray Teresa Primary Care Provider [phone] Luther Gilmore MD Primary Care Provider [phone] Encounter Details Date Type Department Care Team (Late Contact Info) Description 02/05/2022 Lab Requisition [facility] Care D[facility] Lab [address] [facility] [place] [address] Faheem Gaines MD [address] [place] [address] Social History Tobacco Use Types Packs/Day Years Used Date Smoking Tobacco: Never Smokeless Tobacco: Never Alcohol Use Standard Drinks/Week Comments No 0 (1 standard drink = 0.6 oz pur e alcohol) Comments No Sex and Gender Information Value Date Recorded Sex Assigned at Not on file Legal Sex Female 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 Gender Identity Not on file Sexual Orientation Not on file documented as of this encounter Plan of Treatment Upcoming Encounters Date Type Department Care Team (Late Contact Info) Description 03/20/2025 1:00 PM HUMAN RESOURCES ASSOCIATE Office Visit [facility] - FUSING 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 [address] [facility] [address] [place] [address] Vipul Arteaga Che, MD [address] [facility] [address] [place] [address] (work) documented as of this encounter Procedures Procedure Name Priority Date/Time Associated Diagnosis Comments DERMATOPATHOLOGY Routine 02/04/2022 12:0 0 AM CDT documented in this encounter Results * DERMATOPATHOLOGY (02/04/2022 12:00 AM CDT) Case Report Dermatopathology Report Case: [id number] Authorizing Provider: Faheem Gaines MD Collected: 02/04/2022 12:00 AM Ordering Location: [facility] DermPath Lab Received: 02/05/2022 02:24 PM Pathologist: [...] specimen consists of a punch biopsy measuring [id number]. Jar 0. 4:39 PM CDT DERMATOPATHOLOGY LABORATORY [...] characteristic determined by the Dermatopathology Laboratory at [facility], directed by Dr. Miguel Levine. These tests need not be, and therefore are not, approved by the [place] Food and Drug Administration. The tests are used for clinical purposes. Billing Codes Specimen Charges Stain Charges 94096 1 2 4:39 PM CDT DERMATOPATHOLOGY LABORATORY Embedded Images 2 4:39 PM CDT DERMATOPATHOLOGY LABORATORY Pathology/Cytolog y TISSUE SPECIMEN FROM SKIN / Unknown 02/04/2022 02/05/2022 2:24 PM CDT Faheem Gaines MD LAB - PATHOLOGY/CYTOLOGY ORD ERABLES Final Result DERMATOPATHOLOGY LABORATORY [facility] - Department of Dermatology [facility] Medicine [address] [place] [address], [address] [phone] documented in this encounter Visit Diagnoses Not on filedocumented in this encounter Care Teams Stave Block Splitter Relationship Specialty Start Date End Date Tray Teresa DO [address] [place] [address] PCP - General 12/27/18 09/13/23 Luther Gilmore MD [address] [place] [address] PCP - General Family Medicine 09/14/23 documented as of this encounter
--- OUTSIDE RECORDS SUMMARY | 2025-03-12 00:31 | XMS_ITS | Clinical Summary ---
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
[2025-03-12] MEDS: LACTATED RINGERS 1,000 ML 30 ML IV CONT (06:30)
[2025-03-12] MEDS: VANCOMYCIN 1,250 MG/NS 250 ML BAG 166.67 MG IVPB (06:30)
--- NOTE | 2025-03-12 06:37 | WPDANESEPPF ---
Anes - Initial Pre Proc Eval Procedure: Operation Date: 03/12/25 07:30 Proposed Procedures p Right Total Hip Arthroplasty, Anterior Approach - Tejas Larsen MD Date/Time: 03/12/25 06:37 Surgeon: Tejas Larsen MD Pre Op Diagnosis: o A Rt Hip Patient Data Age: 79 Gender: F Height: 1.63 m Weight: 76.6 kg Last Vital Signs Temp 36.6 C 02/15/25 10:30 Pulse 64 02/15/25 10:30 Resp 16 02/15/25 10:30 BP 108/62 02/15/25 10:30 Pulse Ox 96 02/15/25 10:30 O2 Del Method Room Air 02/15/25 10:30 Allergies Allergy/AdvReac Type Severity Reaction Status Date / Time mold Allergy Unknown Congested Verified 02/16/25 07:04 lactose AdvReac Unknown Diarrhea Verified 02/16/25 07:04 Home Medications ?Medication ?Instructions ?Recorded ?Confirmed ?Type Bifidobacterium infantis 4 mg 4 mg PO DAILY 03/28/19 02/15/25 History capsule (Align (B.infantis)) Saccharomyces boulardii 250 mg 250 mg PO BID 03/28/19 02/15/25 History capsule ascorbic acid (vitamin C) 500 mg 500 mg PO Q12H 03/28/19 02/15/25 History capsule,extended release (Vitamin C) d-mannose 1,000 mg PO BID 03/28/19 02/15/25 History diltiazem HCl 180 mg 180 mg PO DAILY 03/28/19 02/15/25 History capsule,extended release 24 hr, controlled (DILT-XR) testosterone 1 dose topical DAILY 03/28/19 02/15/25 History vitamin B complex (B 1 tablet PO DAILY 08/12/20 02/15/25 History Complex-Vitamin B12 tablet) ipratropium bromide 21 mcg (0.03 2 spray intranasal BID 04/07/23 02/15/25 History %) nasal spray digestive enzymes 1 cap PO BID 05/11/23 02/15/25 History progesterone micronized 100 mg 300 mg PO QAM 11/23/23 02/15/25 History capsule esomeprazole magnesium 40 mg See Rx Instructions .Route 05/15/24 02/15/25 Rx capsule,delayed release .COMPLEX #90 caps perfluorohexyloctane (PF) 100 % 1 drp EACH EYE QID 08/29/24 02/15/25 History eye drops (Miebo (PF)) Thyroid 1 cap PO DAILY 12/13/24 02/15/25 History mirabegron 50 mg tablet,extended 50 mg PO DAILY 12/13/24 02/15/25 History release 24 hr trimethoprim 100 mg tablet 100 mg PO DAILY 12/13/24 02/15/25 History meloxicam 7.5 mg tablet 7.5 mg PO DAILY #30 tabs 02/14/25 02/15/25 Rx acetaminophen 650 mg 1,300 mg PO Q8H PRN pain 02/15/25 02/15/25 History tablet,extended release (8 Hour Pain Reliever) aspirin 81 mg tablet,delayed 81 mg PO DAILY 02/15/25 02/15/25 History release (Adult Low Dose Aspirin) cholecalciferol (vitamin D3) 250 250 mcg PO DAILY 02/15/25 02/15/25 History mcg (10,000 unit) capsule estradiol 2 mg tablet 2.5 mg PO DAILY 02/15/25 02/15/25 History estradiol-testosterone 0.5 supp vaginal 3XW 02/15/25 02/15/25 History spironolactone 50 mg tablet 50 mg PO QAM 02/15/25 02/15/25 History Patient hx anesthesia problems: none Family hx anesthesia problems: none Results Review: All pre-operative results and documents have been reviewed as part of the pre-operative evaluation. [facility] Past Medical History Medical History Change in bowel habits Gas bloat syndrome COVID-19 Osteopenia Gastroesophageal reflux disease Hypothyroidism (acquired) Mixed hyperlipidemia Primary osteoarthritis of both hands Pulmonary emphysema History of vaginal delivery x 2 Back pain Surgical History Surgical History History of bladder surgery History of bilateral tubal ligation H/O total hysterectomy with bilateral salpingo-oophorectomy (BSO) History of back surgery History of appendectomy Family History Family History Mother Hypertension Family history of elevated blood lipids Family history of malignant neoplasm of breast in first degree relative Family history of malignant neoplasm of ovary Patient's mother is Family history of hypercholesterolemia, Onset Age: 93 Family history of gastrointestinal disorder, Onset Age: 93 Grandparent Family history of liver disease, Onset Age: 74 Family history of malignant neoplasm of esophagus, Onset Age: 83 Family history of type 2 diabetes mellitus Family history of heart disease in male family member before age 55 Diabetes mellitus, Onset Age: 77 Cerebrovascular accident, Onset Age: 77 Sibling Family history of malignant neoplasm of breast in first degree relative Patient's sister is Family history of hypercholesterolemia Hypertension Patient's sister is in good health Father Family history of type 2 diabetes mellitus, Onset Age: 77 Family history of heart disease in male family member before age 55, Onset Age: 77 Patient's father is , Onset Age: 77 Diabetes mellitus Family history of cardiovascular disease, Onset Age: 77 Hypertension Social History Social History Social History: Caffeine-occasionally Smoking status: Never smoker Second hand tobacco smoke exposure: No Alcohol intake: current Drinks per week: 1 Alcohol use details: occasionally Substance use: never Substance use type: does not use Do You Feel Safe in your Home?: Yes Lack of Transportation: No Lack of Food: Never True Current Housing: I Have Housing Concerned About Future Housing: No Difficulty Paying Gas/Electric Bills: No Difficulty Paying for Meds: No Currently Unemployed: No Education: Bachelor's Degree Difficulty w/ Childcare or Family Care: No Living arrangements: with family Additional living arrangements comments: [facility] Spiritual care concerns: No Anes - Eval Final PreProcedure Day of Procedure 03/12/25 06:37 Patient weight: overweight Heart: regular rate and rhythm Lungs: clear to auscultation Airway: Mallampati scale class II Neurological: alert and oriented Last oral intake: >/= 8 hours ASA classification: III Emergent: no Anesthetic plan: proceed Anesthesia type and monitoring: general ETT and standard monitoring Results Review: All pre-operative results and documents have been reviewed as part of the pre-operative evaluation. Informed Consent: The patient's anesthetic plan and its attendant risks and benefits were discussed with the patient/family/POA. Questions were solicited and answers provided to the satisfaction of the patient/family/POA.
[2025-03-12] MEDS: TRANEXAMIC ACID 1,000MG/ISO100 1,000 MG/100 ML BAG 200 MG IVPB (07:00)
[2025-03-12] MEDS: ACETAMINOPHEN 500 MG TABLET 1000 MG PO (07:00)
--- NOTE | 2025-03-12 07:16 | WPDHPUPDATE1 ---
History and Physical Update Update Date/Time: 03/12/25 07:16 History and Physical has been reviewed, including an updated exam of the patient. There are NO changes in the patient's condition. Risks, benefits, and alternatives have been discussed and questions answered. Patient agrees to proceed with procedure.
[2025-03-12] MEDS: ceFAZolin 2 GM in SODIUM CHLORIDE 0.9% IV 50 ML 100 ML IVPB ×2 (08:40→16:28)
[2025-03-12] MEDS: SODIUM CHLORIDE 0.9% IV 37.7 ML, MORPHINE SULFATE INJ (*CRX) 2 MG, ROPivacaine HCL 1% 2... INFILTRATE (09:34)
[2025-03-12] MEDS: TRANEXAMIC ACID 1,000 MG/10 ML AMPUL 1000 MG IV PUSH (12:09)
--- NOTE | 2025-03-12 14:05 | ADMGEN ---
This patient, Estefany Busby, was admitted to [facility] Surg Room 314-01. Patient/family oriented to hospital policies and general routines including ID bracelet, bed and alarms, visiting hours, pain management, procedures, bathroom and other care routines, personal items, smoking policy, room service/diet, and visiting hours. Information on how to activate the Rapid Response Team has been discussed. Patient/Family are encouraged to report perceived risks to care and to ask questions if they do not understand what they are told or what they should do.
[2025-03-12] MEDS: ONDANSETRON INJ 4 MG/2 ML VIAL IV PUSH (15:42)
[2025-03-12] MEDS: SACCHAROMYCES BOULARDII 250 MG CAPSULE PO (16:28)
[2025-03-12] MEDS: SENNA/DOCUSATE SODIUM TABLET 2 TAB PO (16:28)
[2025-03-12] MEDS: ACETAMINOPHEN 325 MG TABLET 650 MG PO (16:28)
[2025-03-12] MEDS: oxyCODONE HCL (*CRX) 2.5 MG TAB IR PO ×2 (16:29→20:29)
--- NOTE | 2025-03-12 16:45 | W.PM.PROC2 ---
Procedure Note - Detailed Date of Procedure 03/12/25 Pre-op Diagnosis o A Rt Hip associated with acetabular dysplasia Post-op Diagnosis Same Procedure Performed Right total hip arthroplasty Surgeon Tejas Larsen MD Ophthalmic Surgical Assistant Nancy Anesthesia General Description of Procedure Patient was brought to the operating room and general anesthesia was administered. Marion catheter was placed. Padding was applied the feet in boots applied the patient transferred to the [facility] [place] table in the right hip prepped and draped usual fashion. She received 2 ends of Ancef weight based vancomycin 1 g of TXA preoperatively. SCDs were applied to the calves and running during the procedure. A 10 cm longitudinal incision was made starting 3 cm lateral to the ASIS. Dissection was carried down to the fascia over the tensor fascia demetrio which was incised and elevated off the anterior 1/2 the TFL muscle. Interval between rectus femoris and tensor fascia demetrio was developed and crossing branches of ascending lateral femoral circumflex vessels were ligated with suture divided. A retractor was placed anteromedial to the capsule the hip abducted internally rotated the gluteus minimus elevated off the lateral capsule. Inverted T capsulotomy was performed and a femoral neck osteotomy made according to preoperative templating. The femoral head was removed. It measured 52 mm in diameter. Acetabulum was exposed. She had an unusually broad labrum that was excised. The acetabulum was quite shallow. The fovea was deep. We medialized with a 44 Reamer to the medial wall and reamed up to a size 50. This reamed to the periphery of the anterior rim and the posterior rim at the equator of the acetabulum. The size 50 trial was loose. The emphasis cup is 50.5 mm. We trialed the 51 trial and this could be fully seated therefore we carefully reamed with a 51 and impacted a 52 mm pinnacle cup at 40? of abduction and appropriate anteversion such that the anterior rim of the shell was 2 mm under the anterior rim of the acetabulum at the midportion posterior rim of the shell about 5 or 6 mm proud relative to the posterior and posterior superior acetabular rim. An excellent Press-Fit was achieved and full seating accomplished and a single screw placed into the ilium which also obtained excellent purchase. Thirty-six inner diameter liner was fully seated. The proximal femur was exposed. Using the table hook the leg was externally rotated and hyperextended The interval between piriformis and conjoined tendon incised lateral to the femoral neck osteotomy which allowed the conjoined tendon to recess a little bit and this gave us adequate exposure. The cancellous bone was of excellent quality. The canal was entered with a canal finder and broached up to a size 4 which achieved torsional stability. We trialed with the high offset neck 1.5 mm head the with the broach impacted the level of the neck cut and on fluoroscopic x-ray with a 1.5 this showed that we lengthened about 5 mm from preoperative and the hip was quite loose and I was not confident this will be stable. The size 5 neck had slight tightness on the soft tissue tension. Therefore I elected to countersink the broach another 3.5 mm and this time trialing with the +5 head, there was appropriate soft tissue tension with ample shuck and appropriate stability. Again under fluoro this lengthened her approximately 4 5 mm from her preoperative length. Trialing with the 1.5 head showed instability. We completed the calcar planing process and fully seated the real size 4 Actis stem high offset been after read trialing we chose the +5 head cobalt chromium which was impacted onto the clean and dry femoral neck hip reduced stability soft tissue tension confirmed to be appropriate. We had irrigated multiple times with Ancef solution. The superior limb of the arthrotomy was approximately with 2. Vicryl. Local anesthetic cocktail injected in the periarticular soft tissues. Two additional g of Ancef 1 g of TXA given it time wound closure. EBL was estimated at 750 cc and she received 375 back as Cell Saver. Soft tissue hemostasis was excellent but she did have above average amount of bleeding from the femur and acetabulum after reaming. Fascia was closed with running 1. Vicryl drain placed deep in the subcu skin closed with 2 subcutaneous Vicryl and glue. There were no complications she was transferred to postop recovery room in good condition. [facility] Billing Surgery - Charge Forward: Surgery Billing (Right total hip replacement)
[2025-03-12] MEDS: VANCOMYCIN HCL 1,000 MG in SODIUM CHLORIDE 0.9% IV 250 ML 250 MG IVPB (18:13)
[2025-03-13] VITALS (8 sets, daily range): BP systolic 94–135; BP diastolic 46–78; PULSE 65–82; RESP 16–18; TEMP 35.7–36.4; O2SAT 92–98
--- NOTE | ~2025-03-13 | XR_ITS ---
EXAM/PROCEDURE: XR surgery orthopedic HISTORY: RT ANTERIOR TOTAL HIP ARTHOPLASTY COMPARISON: None available. TECHNIQUE: Intraoperative film Velocity time: 47.4 seconds Dose: [id number] mGym2 FINDINGS: Single intraoperative film for right hip arthroplasty IMPRESSION: As above Reviewed, dictated and finalized at location A. IC [employer] IMPRESSION: As above
--- NOTE | ~2025-03-13 | XR_ITS ---
EXAMINATION: XR hip RT min 2V, 03/12/2025 13:08 LUNCHROOM MOTHER HISTORY: RT TOTAL HIP ARTHOPLASTY POST OP COMPARISON: No comparisons available. Findings: No acute fracture or malalignment. Right arthroplasty intact Soft tissues unremarkable. Impression: No acute fracture or malalignment. Reviewed, dictated and finalized at location P. HROOM MOTHER Impression: No acute fracture or malalignment.
[2025-03-13] MEDS: ACETAMINOPHEN 325 MG TABLET 650 MG PO ×5 (00:56→23:50)
[2025-03-13] MEDS: ceFAZolin 2 GM in SODIUM CHLORIDE 0.9% IV 50 ML 100 ML IVPB ×2 (00:56→08:54)
[2025-03-13] MEDS: DEXTROSE 5%/0.45% SOD CHL 1,000 ML 80 ML IV CONT (05:50)
[2025-03-13] MEDS: LACTATED RINGERS 500 ML 999 ML IV CONT (05:50)
[2025-03-13] MEDS: THYROID 30 MG TABLET 120 MG PO (05:51)
[2025-03-13] MEDS: VANCOMYCIN HCL 1,000 MG in SODIUM CHLORIDE 0.9% IV 250 ML 250 MG IVPB (06:06)
[2025-03-13 06:12] LABS: Hematocrit 32.5 % (37.0-47.0); Hemoglobin 10.8 g/dL (12.0-15.0); Immature Granulocyte Percent A 0.7 % (0-0.5); Lymphocytes Absolute Auto 0.61 K/mm3 (0.9-3.2); Mean Corpuscular HGB Conc 33.2 g/dl (32-36); Mean Corpuscular Hemoglobin 31.4 pg (26-34); Mean Corpuscular Volume 94.5 fl (80-100); Nucleated Red Blood Cells Absolute Auto 0.000 K/mm3 (0.0-0.012); Nucleated Red Blood Cells Perc 0.0 % (0.0-0.2); Platelet Count Result 213 k/mm3 (150-375); Red Blood Count 3.44 M/mm3 (4.2-5.4); White Blood Count 20.8 K/mm3 (4.5-10.0)
[2025-03-13 06:35] LABS: Anion Gap 5 mmol/L (4-12); Blood Urea Nitrogen 23 mg/dL (7-17); Calcium 8.6 mg/dL (8.4-10.2); Carbon Dioxide 25 mmol/L (22-30); Chloride 94 mmol/L (98-107); Estimated CRCL calculation 46 ml/min; Estimated Glomerular Filt Rate > 60; Glucose 125 mg/dL (65-110); Potassium 4.7 mmol/L (3.4-5.0); Sodium 124 mmol/L (137-145)
[2025-03-13] MEDS: PANTOPRAZOLE 40 MG TABLET PO (07:30)
--- NOTE | 2025-03-13 07:32 | PM.PNORT ---
Progress Note: A&P Assessment and Plan (1) Status post right hip replacement: Code(s): Z96.641 - Presence of right artificial hip joint Status: Acute Assessment and Plan: Patient is postop day 1 after right total hip replacement direct anterior approach. She is afebrile. Her blood pressure was a little bit lower this morning 117 systolic. She had not voided all night and only could void 50 cc and bladder scan showed 350 remaining. We are trying to avoid instrumenting her urethra repeatedly because of her history of recurrent urinary tract infections. She was given a 250 LR bolus and IV fluids D5 half-normal saline at 80 in our was started at 5:30 a.m. after the bolus and she did just void 100 cc. She does not feel any bladder distention. Her pain control is been excellent. She is only taking the Tylenol. Will discontinue the scheduled oxycodone and just leave the p.r.n. 2.5 mg oxycodone. She is up walking around and has been up walking around quite a bit. She rates her pain at 0/10. I witnessed her in the bathroom and she is walking without using the walker and turning around in not having any functional limitation surprisingly. I have cautioned her that it is necessary for her to have her hands on the walker because if she became dizzy or lost her balance she could fall and have a catastrophic fracture around her hip replacement. Her bones were quite good at time of surgery. Acute blood loss anemia. Hemoglobin 10.8. She ran at 15.4 preop which is elevated and her elevated hemoglobin is likely due to her chronic testosterone use. She had a feeling of a little bit of lightheadedness last night but has up around this morning without any feeling of lightheadedness at all. Hyponatremia. Sodium is 124 this morning. It was borderline low at 135 on her preop labs and over the past year she has had sodiums of 133 twice and 134 twice so she does have borderline hyponatremia chronically but this represents a significant drop in her sodium which could become problematic if it continues to drop and I would like her to spend the day in the hospital and ask the hospitalist to see her. We do not want to over restrict her fluids as she has just had a big operation and does need fluids to maintain adequate hydration. I have put her spironolactone and diltiazem on hold for now since her blood pressure is lower. Will ask the hospitalist the to see her about this and in the meantime I am going to place her on 50 cc per hour of normal saline IV. Her wound looks fine. 30 cc out the drain which was discontinued this morning. She has no significant swelling or bruising about the hip her dressing is dry. She has no leg swelling. Plan: We will formally admit her and plan on discharge tomorrow if her sodium is proven to be stable. Subjective Subjective Date/Time Seen: 03/13/25 07:32 Objective Data Vital Signs Vital Signs: Vital Signs - 24 hr 03/12/25 13:00 03/12/25 13:15 03/12/25 13:30 Temperature 37.3 C Pulse Rate 82 75 75 Respiratory Rate 16 12 14 Blood Pressure 123/77 135/74 126/64 Pulse Oximetry 99 99 92 Oxygen Delivery Simple Face Mask Simple Face Mask Room Air Oxygen Flow Rate 8 6 03/12/25 13:45 03/12/25 14:10 03/12/25 14:10 Temperature 35.9 C L 35.9 C L Pulse Rate 74 77 77 Respiratory Rate 13 18 18 Blood Pressure 119/75 114/63 114/63 Pulse Oximetry 92 96 96 Oxygen Delivery Room Air Oxygen Flow Rate 03/12/25 14:25 03/12/25 14:25 03/12/25 14:55 Temperature 35.9 C L 35.9 C L 36.1 C L Pulse Rate 77 77 76 Respiratory Rate 19 19 18 Blood Pressure 121/65 121/65 115/65 Pulse Oximetry 95 95 96 Oxygen Delivery Oxygen Flow Rate 03/12/25 14:55 03/12/25 15:00 03/12/25 15:34 Temperature 36.1 C L Pulse Rate 76 Respiratory Rate 18 Blood Pressure 115/65 Pulse Oximetry 96 Oxygen Delivery Room Air Room Air Oxygen Flow Rate 03/12/25 16:07 03/12/25 20:50 03/13/25 00:30 Temperature 35.9 C L 36.1 C L 35.7 C L Pulse Rate 83 84 82 Respiratory Rate 18 16 18 Blood Pressure 117/76 118/59 L 100/58 L Pulse Oximetry 96 95 92 Oxygen Delivery Oxygen Flow Rate 03/13/25 04:20 03/13/25 05:08 Temperature 36.1 C L Pulse Rate 73 76 Respiratory Rate 16 Blood Pressure 94/46 L 117/78 Pulse Oximetry 94 98 Oxygen Delivery Oxygen Flow Rate Intake/Output Intake/Output: Intake & Output 03/10/25 03/11/25 03/12/25 03/13/25 23:59 23:59 23:59 23:59 Intake Total 590 910 Output Total 30 Balance 590 880 Meds/Results Medications: Active Medications Generic Name Dose Route Start Last Admin Trade Name Freq PRN Reason Stop Dose Admin Acetaminophen 650 mg 03/12/25 18:00 03/13/25 05:51 Acetaminophen 325 Mg Tablet PO 650 mg Q6H YOJANA Administration Apixaban 2.5 mg 03/13/25 09:00 Apixaban 2.5 Mg Tablet PO Q12HR YOJANA Cefdinir 300 mg 03/13/25 18:00 Cefdinir 300 Mg Capsule PO Q12H YOJNAA Diltiazem HCl 180 mg 03/13/25 09:00 Diltiazem Hcl Cd 180 Mg Cap.24hr PO DAILY YOJANA Vancomycin HCl 1,000 mg/ 250 mls @ 250 mls/hr 03/12/25 19:00 03/13/25 06:06 Sodium Chloride IVPB 03/13/25 07:59 250 mls/hr Q12H YOJANA Administration Cefazolin Sodium 2 gm/ Sodium 50 mls @ 100 mls/hr 03/12/25 17:00 03/13/25 00:56 Chloride IVPB 03/13/25 09:29 100 mls/hr Q8H YOJANA Administration Sodium Chloride 1,000 mls @ 50 mls/hr 03/13/25 07:25 Normal Saline Iv IV CONT .Q20H YOJANA Ipratropium [place] 2 spray 03/12/25 17:00 Ipratropium Nasal [place] 0.03% 15 Ml Bottle NASAL BID YOJAAN Meloxicam 7.5 mg 03/13/25 09:00 Meloxicam 7.5 Mg Tablet PO DAILY [facility] Miscellaneous Information 1 each 03/12/25 00:01 03/12/25 15:50 Ipratropium Nasal [place] Home Med Link Says Use As Needed (Rhinitis). Ordered Scheduled Dos XX 04/11/25 00:00 Not Given CLARIFY [facility] Miscellaneous Information 1 each 03/12/25 00:01 03/12/25 14:59 Testosterone Topical Cream Is Nonformulary. Can She Use Home Supply Or Hold While Hospital XX 04/11/25 00:00 Not Given CLARIFY [facility] Morphine Sulfate 2 mg 03/12/25 13:56 Morphine Sulfate (*Crx) 4 Mg/Ml Inj IV PUSH Q2H PRN Pain Rated 7-10 Naloxone HCl 0.1 mg 03/12/25 13:56 Naloxone Hcl 0.4 Mg/Ml Vial IV PUSH Q2M PRN Opiate Reversal Non-Formulary Medication 1 drop 03/12/25 13:56 Perfluorohexyloctane (Pf) [Miebo (Pf)] EACH EYE 04/11/25 13:55 QID [facility] Non-Formulary Medication 1 dose 03/13/25 09:00 Testosterone TOPICAL 04/12/25 08:59 DAILY [facility] Bifidobacterium 1 each 03/12/25 14:31 Infantis XX 03/13/25 14:30 PRN PRN PROTOCOL D-Mannose 1 each 03/12/25 14:32 XX 03/13/25 14:31 PRN PRN PROTOCOL Digestive Enzymes 1 each 03/12/25 14:32 Capsule XX 03/13/25 14:31 PRN PRN PROTOCOL Ondansetron HCl 4 mg 03/12/25 13:56 03/12/25 15:42 Ondansetron Inj 4 Mg/2 Ml Vial IV PUSH 4 mg Q4H PRN Administration Nausea And Vomiting Oxycodone HCl 2.5 mg 03/12/25 17:00 03/13/25 06:54 Oxycodone Hcl (*Crx) 2.5 Mg Tab Ir PO Not Given Q4HR [facility] Oxycodone HCl 2.5 mg 03/12/25 13:56 Oxycodone Hcl (*Crx) 2.5 Mg Tab Ir PO Q4H PRN Pain Rated 4-10 Pantoprazole Sodium 40 mg 03/13/25 09:00 03/13/25 07:30 Pantoprazole 40 Mg Tablet PO 40 mg QAM YOJANA Administration Polyethylene Glycol 17 gm 03/13/25 09:00 Polyethylene Glycol 3350 17 Gm Powd.Pack PO QAM [facility] Saccharomyces Boulardii 250 mg 03/12/25 17:00 03/12/25 16:28 Saccharomyces Boulardii 250 Mg Capsule PO 250 mg BID YOJANA Administration Senna/Docusate Sodium 2 tab 03/12/25 17:00 03/12/25 16:28 Senna/Docusate Sodium Tablet PO 2 tab BID YOJANA Administration Thyroid 120 mg 03/13/25 06:30 03/13/25 05:51 Thyroid 30 Mg Tablet PO 120 mg DAILY@0630 YOJANA Administration Trimethoprim 100 mg 03/13/25 09:00 Trimethoprim 100 Mg Tablet PO DAILY [facility] Vitamin B Complex 1 cap 03/13/25 09:00 Vitamin B Complex Capsule PO DAILY [facility] Vitamin D 250 mcg 03/13/25 09:00 Cholecalciferol (Vitamin D3) 125 Mcg (5,000 Units) Tablet PO DAILY [facility] Radiology Results: ITS Impressions Intraoperative X-Ray 03/12/25 12:29 IMPRESSION: As above Hip X-Ray 03/12/25 13:15 Impression: No acute fracture or malalignment. Labs Labs: Laboratory Results - last 24 hr 03/12/25 03/13/25 06:49 05:48 WBC 20.8 H RBC 3.44 L Hgb 10.8 L Hct 32.5 L MCV 94.5 MCH 31.4 MCHC 33.2 RDW 12.3 Plt Count 213 MPV 9.1 Immature Gran % (Auto) 0.7 H Neut % (Auto) 89.8 H Lymph % (Auto) 2.9 L [place] % (Auto) 6.5 Eos % (Auto) 0.0 Baso % (Auto) 0.1 L Lymph # (Auto) 0.61 L [place] # (Auto) 1.3 H Eos # (Auto) 0.0 Baso # (Auto) 0.0 Abs Immat Gran (auto) 0.14 H Absolute Neuts (auto) 18.7 H Absolute Nucleated RBC 0.000 Nucleated RBC % 0.0 Sodium 124 L Potassium 4.7 Chloride 94 L Carbon Dioxide 25 Anion Gap 5 BUN 23 H Creatinine 0.83 Estim Creat Clear Calc 46 Estimated GFR > 60 Glucose 125 H Calcium 8.6 Blood Type AB Negative Antibody Screen Negative
--- NOTE | 2025-03-13 07:51 | WPDANESPN ---
Anes - Prog Note Post-Op Date/Time: 03/13/25 07:51 Cardiovascular status: normal Respiratory status: normal Airway patency: baseline Mental status: baseline Post-Op hydration status: normal Vital Signs: Last Vital Signs Temp 36.1 C L 03/13/25 04:20 Pulse 76 03/13/25 05:08 Resp 16 03/13/25 04:20 BP 117/78 03/13/25 05:08 Pulse Ox 98 03/13/25 05:08 O2 Del Method Room Air 03/12/25 15:34 O2 Flow Rate 6 03/12/25 13:15 Pain Score (VAS): 2 I/O: Intake & Output 03/12/25 03/12/25 03/13/25 15:59 23:59 07:59 Intake Total 50 540 910 Output Total 30 Balance 50 540 880 Laboratory Tests 03/13/25 05:48 03/13/25 05:48 03/13/25 05:48 WBC 20.8 H RBC 3.44 L Hgb 10.8 L Hct 32.5 L MCV 94.5 MCH 31.4 MCHC 33.2 RDW 12.3 Plt Count 213 MPV 9.1 Immature Gran % (Auto) 0.7 H Neut % (Auto) 89.8 H Lymph % (Auto) 2.9 L [place] % (Auto) 6.5 Eos % (Auto) 0.0 Baso % (Auto) 0.1 L Lymph # (Auto) 0.61 L [place] # (Auto) 1.3 H Eos # (Auto) 0.0 Baso # (Auto) 0.0 Abs Immat Gran (auto) 0.14 H Absolute Neuts (auto) 18.7 H Absolute Nucleated RBC 0.000 Nucleated RBC % 0.0 Sodium 124 L Potassium 4.7 Chloride 94 L Carbon Dioxide 25 Anion Gap 5 BUN 23 H Creatinine 0.83 Estim Creat Clear Calc 46 Estimated GFR > 60 Glucose 125 H Calcium 8.6 Post-procedural complaints: none Patient Feedback: Patient satisfied with anesthetic care.
[2025-03-13] MEDS: MELOXICAM 7.5 MG TABLET PO (08:53)
[2025-03-13] MEDS: SENNA/DOCUSATE SODIUM TABLET 2 TAB PO ×2 (08:53→17:09)
[2025-03-13] MEDS: CHOLECALCIFEROL (VITAMIN D3) 125 MCG (5,000 UNITS) TABLET 250 MCG PO (08:53)
[2025-03-13] MEDS: VITAMIN B COMPLEX CAPSULE 1 CAP PO (08:53)
[2025-03-13] MEDS: TRIMETHOPRIM 100 MG TABLET PO (08:53)
[2025-03-13] MEDS: APIXABAN 2.5 MG TABLET PO ×2 (08:54→21:13)
[2025-03-13] MEDS: SACCHAROMYCES BOULARDII 250 MG CAPSULE PO ×2 (08:54→17:09)
[2025-03-13] MEDS: dilTIAZem HCL CD 180 MG CAP.24HR PO (08:54)
[2025-03-13] MEDS: SODIUM CHLORIDE 0.9% IV 1,000 ML 50 ML IV CONT (08:55)
--- NOTE | 2025-03-13 15:43 | PM.IMCN ---
Assessment and Plan Assessment and plan (1) Osteoarthritis, hip, bilateral: Qualifiers: Osteoarthritis type: primary Qualified Code(s): M16.0 - Bilateral primary osteoarthritis of hip Code(s): M16.0 - Bilateral primary osteoarthritis of hip Status: Acute (2) Status post right hip replacement: Code(s): Z96.641 - Presence of right artificial hip joint Status: Acute (3) Hyponatremia: Code(s): E87.1 - Hypo-osmolality and hyponatremia Status: Acute Plan Estefany Busby is a 79 year old female with history of OA of the hip s/p right hip replacement on 03/12, patient clinical symptoms are improving after the surgery however patient has mild hyponatremia post surgery most likely 2/2 dehydration due to being NPO prior to the surgery that's the for the consult, patient being gently hydrated will normal saline, will recheck patient sodium and further recommendation to follow, patient is clinically stable and will follow the patient with you. HPI Date of Consult Consult date: 03/13/25 Requesting Physician: Tejas Larsen MD Primary Care Provider: Luther Gilmore MD Consult Narrative Narrative: Estefany Busby is a 79 year old female with history of OA of the hip s/p right hip replacement on 03/12, patient clinical symptoms are improving after the surgery however patient has mild hyponatremia post surgery most likely 2/2 dehydration due to being NPO prior to the surgery that's the for the consult, patient being gently hydrated will normal saline, will recheck patient sodium and further recommendation to follow, patient is clinically stable and will follow the patient with you. Review of Systems Review of Systems: All systems reviewed & are unremarkable except as noted in HPI and below PMFSH Past Medical History Medical History Change in bowel habits Gas bloat syndrome COVID-19 Osteopenia Gastroesophageal reflux disease Hypothyroidism (acquired) Mixed hyperlipidemia Primary osteoarthritis of both hands Pulmonary emphysema History of vaginal delivery x 2 Back pain Surgical History Surgical History History of bladder surgery History of bilateral tubal ligation H/O total hysterectomy with bilateral salpingo-oophorectomy (BSO) History of back surgery History of appendectomy Family History Family History Mother Hypertension Family history of elevated blood lipids Family history of malignant neoplasm of breast in first degree relative Family history of malignant neoplasm of ovary Patient's mother is Family history of hypercholesterolemia, Onset Age: 93 Family history of gastrointestinal disorder, Onset Age: 93 Grandparent Family history of liver disease, Onset Age: 74 Family history of malignant neoplasm of esophagus, Onset Age: 83 Family history of type 2 diabetes mellitus Family history of heart disease in male family member before age 55 Diabetes mellitus, Onset Age: 77 Cerebrovascular accident, Onset Age: 77 Sibling Family history of malignant neoplasm of breast in first degree relative Patient's sister is Family history of hypercholesterolemia Hypertension Patient's sister is in good health Father Family history of type 2 diabetes mellitus, Onset Age: 77 Family history of heart disease in male family member before age 55, Onset Age: 77 Patient's father is , Onset Age: 77 Diabetes mellitus Family history of cardiovascular disease, Onset Age: 77 Hypertension Social History Social History Social History: Caffeine-occasionally Smoking status: Never smoker Second hand tobacco smoke exposure: No Alcohol intake: current Drinks per week: 1 Alcohol use details: occasionally Substance use: never Substance use type: does not use Do You Feel Safe in your Home?: Yes Lack of Transportation: No Lack of Food: Never True Current Housing: I Have Housing Concerned About Future Housing: No Difficulty Paying Gas/Electric Bills: No Difficulty Paying for Meds: No Currently Unemployed: No Education: Bachelor's Degree Difficulty w/ Childcare or Family Care: No Living arrangements: with family Additional [facility] Spiritual care concerns: No Meds Home Medications and Allergies Home Medications ?Medication ?Instructions ?Recorded ?Confirmed ?Type Bifidobacterium infantis 4 mg 4 mg PO DAILY 03/28/19 03/12/25 History capsule (Align (B.infantis)) Saccharomyces boulardii 250 mg 250 mg PO BID 03/28/19 03/12/25 History capsule ascorbic acid (vitamin C) 500 mg 500 mg PO Q12H 03/28/19 03/12/25 History capsule,extended release (Vitamin C) d-mannose 1,000 mg PO BID 03/28/19 03/12/25 History diltiazem HCl 180 mg 180 mg PO DAILY 03/28/19 03/12/25 History capsule,extended release 24 hr, controlled (DILT-XR) testosterone 1 dose topical DAILY 03/28/19 03/12/25 History vitamin B complex (B 1 tablet PO DAILY 08/12/20 03/12/25 History Complex-Vitamin B12 tablet) ipratropium bromide 21 mcg (0.03 2 spray intranasal BID PRN allergy 04/07/23 03/12/25 History %) nasal spray symptoms digestive enzymes 1 cap PO BID 05/11/23 03/12/25 History progesterone micronized 100 mg 300 mg PO QAM 11/23/23 03/12/25 History capsule esomeprazole magnesium 40 mg See Rx Instructions .Route 05/15/24 03/12/25 Rx capsule,delayed release .COMPLEX #90 caps perfluorohexyloctane (PF) 100 % 1 drp EACH EYE QID 08/29/24 03/12/25 History eye drops (Miebo (PF)) Thyroid 1 cap PO DAILY 12/13/24 03/12/25 History mirabegron 50 mg tablet,extended 50 mg PO DAILY 12/13/24 03/12/25 History release 24 hr trimethoprim 100 mg tablet 100 mg PO DAILY 12/13/24 03/12/25 History meloxicam 7.5 mg tablet 7.5 mg PO DAILY #30 tabs 02/14/25 03/12/25 Rx acetaminophen 650 mg 1,300 mg PO Q8H PRN pain 02/15/25 02/15/25 History tablet,extended release (8 Hour Pain Reliever) aspirin 81 mg tablet,delayed 81 mg PO DAILY 02/15/25 03/12/25 History release (Adult Low Dose Aspirin) cholecalciferol (vitamin D3) 250 250 mcg PO DAILY 02/15/25 03/12/25 History mcg (10,000 unit) capsule estradiol 2 mg tablet 2.5 mg PO DAILY 02/15/25 03/12/25 History estradiol-testosterone 0.5 supp vaginal 3XW 02/15/25 03/12/25 History spironolactone 50 mg tablet 50 mg PO QAM 02/15/25 03/12/25 History Allergies Allergy/AdvReac Type Severity Reaction Status Date / Time mold Allergy Unknown Congested Verified 03/12/25 14:16 lactose AdvReac Unknown Diarrhea Verified 03/12/25 14:16 Vital Signs Vital Signs - 24 hr 03/12/25 16:07 03/12/25 20:50 03/13/25 00:30 Temperature 35.9 C L 36.1 C L 35.7 C L Pulse Rate 83 84 82 Respiratory Rate 18 16 18 Blood Pressure 117/76 118/59 L 100/58 L Pulse Oximetry 96 95 92 Oxygen Delivery 03/13/25 04:20 03/13/25 05:08 03/13/25 07:55 Temperature 36.1 C L 35.8 C L Pulse Rate 73 76 78 Respiratory Rate 16 18 Blood Pressure 94/46 L 117/78 135/72 Pulse Oximetry 94 98 95 Oxygen Delivery 03/13/25 08:50 03/13/25 11:41 Temperature 36.4 C L Pulse Rate 74 Respiratory Rate 17 Blood Pressure 113/58 L Pulse Oximetry 93 Oxygen Delivery Room Air Exam Narrative: Patient is comfortable, NAD HEENT: eyes are clear and none icteric LUNGS:CTA HEART: RR S1S2 ABD: BS+, Soft and nontender Lower extremities: no edema SKIN: nonjaundiced Neuro: grossly intact. Results Labs 03/13/25 05:48 03/13/25 05:48 Labs: Short CBC 03/13/25 Range/Units 05:48 WBC 20.8 H (4.5-10.0) K/mm3 Hgb 10.8 L (12.0-15.0) g/dL Hct 32.5 L (37.0-47.0) % Plt Count 213 (150-375) k/mm3 BMP 03/13/25 05:48 Sodium 124 L Potassium 4.7 Chloride 94 L Carbon Dioxide 25 BUN 23 H Creatinine 0.83 Glucose 125 H Calcium 8.6
[2025-03-13] MEDS: CEFDINIR 300 MG CAPSULE PO (17:09)
[2025-03-14] VITALS (7 sets, daily range): BP systolic 104–151; BP diastolic 52–70; PULSE 61–115; RESP 16; TEMP 36–36.7; O2SAT 94–95
--- NOTE | 2025-03-14 | ECHO_ITS ---
Patient Info Name: Estefany Busby Age: 79 years : 1945 Gender: Female Ht: 25 in Wt: 362 lbs BSA: 1.96 m2 HR: 85 bpm BP: 105 / 56 mmHg Heart Rhythm: Sinus Rhythm Technical Quality: Good Exam Date: 03/14/2025 3:57 PM Patient Status: I Admit Date: 03/13/2025 Exam Type: CA echo doppler color flow Complete two-dimensional, color flow and Doppler transthoracic echocardiogram is performed. Staff Referring Physician: Tejas Larsen MD Curator Of Manuscripts: Nilda Link Attending Provider: Tejas Larsen MD Summary 1. Complete two-dimensional, color flow and Doppler transthoracic echocardiogram is performed. 2. There is normal biventricular size and systolic function. 3. There are no significant valvular abnormalities. 4. The left atrium is mildly dilated. Left Ventricle The left ventricle is normal in size and systolic function. The left ventricular ejection fraction is visually estimated to be 65-70%. There is grade 2 diastolic dysfunction. Right Ventricle The right ventricle is normal in size and systolic function. Left Atria The left atrium is mildly dilated. Right Atria The right atrium is normal size. Atrial Septum The atrial septum is visually intact. Aortic Valve The aortic valve is trileaflet and opens well. There is mild aortic regurgitation. Pulmonic Valve The pulmonic valve is grossly normal. There is no pulmonic valve regurgitation. Mitral Valve The mitral valve is normal. There is trace mitral regurgitation. Tricuspid Valve The tricuspid valve is normal. There is trace tricuspid regurgitation. Pericardium/Pleural Pericardium is normal in appearance with no evidence for significant pericardial effusion. Inferior Vena Cava Normal inferior vena cava with >50% collapse upon inspiration consistent with normal right atrial pressure, 3 mmHg. Aorta The aortic root at the level of the sinus of Valsalva measures 3.1 cm in diameter. Left Ventricular Outflow Tract Name Value Normal LVOT 2D LVOT Diameter 2.0 cm LVOT Doppler LVOT Peak Velocity 133 cm/s LVOT Peak Gradient 7 mmHg LVOT Mean Gradient 4 mmHg LVOT VTI 25 cm LVOT VTI/AV VTI Ratio 0.8 LVOT Stroke Volume 82 ml LVOT CO 6.4 l/min LVOT CI 3.3 l/min/m2 Pulmonic Valve Name Value Normal RVOT Doppler RVOT Peak Velocity 72 cm/s RVOT Peak Gradient 2 mmHg PV Doppler PV Peak Velocity 86 cm/s PV Peak Gradient 3 mmHg Mitral Valve Name Value Normal MV Diastolic Function MV E Peak Velocity 97 cm/s MV A Peak Velocity 68 cm/s MV E/A 1.4 MV Decel Time (PW) 133 ms MV Annular TDI MV E/e' (Septal) 21.3 MV E/e' (Lateral) 13.6 MV E/e' (Average) 17.5 Tricuspid Valve Name Value Normal Estimated PAP/RSVP RA Pressure 3 mmHg <=5 TV Annular TDI TV Lateral Clarice s' Velocity 18.8 cm/s >=9.5 Aorta Name Value Normal Ascending Aorta Ao Root Diameter (MM) 3.5 cm Ao Root Diam Index (MM) 1.8 cm/m2 Aortic Valve Name Value Normal AV Doppler AV Peak Velocity 180 cm/s AV Peak Gradient 13 mmHg AV Mean Gradient 7 mmHg AV VTI 33 cm AV Area (Cont Eq VTI) 2.4 cm2 >=3.0 AV Area (Cont Eq Leland) 2.4 cm2 AV DI (Leland) 0.74 AV Regurgitation 2D LVOT Area 3.2 cm2 Ventricles Name Value Normal LV Dimensions 2D/MM IVS Diastolic Thickness (2D) 0.9 cm 0.6-1.0 LVID Diastole (2D) 4.6 cm 3.8-5.2 LVIW Diastolic Thickness (2D) 0.9 cm 0.6-0.9 LVID Systole (2D) 3.1 cm 2.2-3.5 LVOT Diameter 2.0 cm LV Mass (2D Cubed) 136.56 g 67.00-162.00 LV Mass Index (2D Cubed) 70 g/m2 43-95 Relative Wall Thickness (2D) 0.41 <=0.42 LV Fractional Shortening/Ejection Fraction 2D/MM LV Fractional Shortening (2D) 33 % 27-45 LV EF (2D Teichholz) 62 % LV Diastolic Volume (4C MOD) 51 ml LV EF (4C MOD) 60 % LV Diastolic Volume (2C MOD) 48 ml LV EF (2C MOD) 60 % LV Diastolic Volume (BP MOD) 50 ml 46-106 LV Diastolic Volume Index (BP MOD) 25 ml/m2 29-61 LV Systolic Volume (BP MOD) 21 ml 14-42 LV Systolic Volume Index (BP MOD) 11 ml/m2 8-24 LV EF (BP MOD) 58 % 54-74 LV Diastolic Length (4C) 7.0 cm LV Systolic Length (4C) 6.1 cm LV Stroke Volume (4C MOD) 30 ml Atria Name Value Normal LA Dimensions LA Dimension (MM) 4.9 cm 2.7-3.8 LA Volume (4C A-L) 61 ml LA Volume (BP A-L) 65 ml RA Dimensions RA Area (4C) 8.8 cm2 <=18.0 Report Signatures
[2025-03-14 05:33] LABS: Hematocrit 30.7 % (37.0-47.0); Hemoglobin 10.4 g/dL (12.0-15.0); Mean Corpuscular HGB Conc 33.9 g/dl (32-36); Mean Corpuscular Hemoglobin 32.0 pg (26-34); Mean Corpuscular Volume 94.5 fl (80-100); Platelet Count Result 197 k/mm3 (150-375); Red Blood Count 3.25 M/mm3 (4.2-5.4); White Blood Count 13.8 K/mm3 (4.5-10.0)
[2025-03-14 05:50] LABS: Anion Gap 2 mmol/L (4-12); Blood Urea Nitrogen 16 mg/dL (7-17); Calcium 9.0 mg/dL (8.4-10.2); Carbon Dioxide 29 mmol/L (22-30); Chloride 100 mmol/L (98-107); Estimated CRCL calculation 51 ml/min; Estimated Glomerular Filt Rate > 60; Glucose 97 mg/dL (65-110); Magnesium 1.9 mg/dL (1.6-2.3); Potassium 4.2 mmol/L (3.4-5.0); Sodium 131 mmol/L (137-145)
[2025-03-14] MEDS: ACETAMINOPHEN 325 MG TABLET 650 MG PO ×4 (06:00→23:11)
[2025-03-14] MEDS: CEFDINIR 300 MG CAPSULE PO ×2 (06:00→17:24)
[2025-03-14] MEDS: THYROID 30 MG TABLET 120 MG PO (06:00)
--- NOTE | 2025-03-14 07:36 | P.PNOP_ITS ---
Progress Note: A&P Assessment and Plan (1) Status post right hip replacement: Code(s): Z96.641 - Presence of right artificial hip joint Status: Acute Plan Patient is postop day 2 after right total hip arthroplasty. She is been voiding very frequently all night. She has had the normal saline at 50 cc an hour running throughout the night and she is been allowed to take in orally ad lauren. She tolerates getting up and down without difficulty she denies any lightheadedness she is walking well. She reports some muscle soreness this morning when she 1st gets up but it is mild and tolerable. Her sodium today is up to 131, up from 124 yesterday so this has stabilized. Her creatinine and BUN are normal. Potassium 4.2. Hyponatremia is resolving. Again she had chronic mild hyponatremia documented over the last couple of years. She is very close to her baseline. Hemoglobin is stable at 10.4. This is despite full hydration. Her blood pressure is 110/54 this morning. Her spironolactone and diltiazem are both on hold. I am going to ask the hospitalist to make recommendations as to how long this should be held and would plan to have her see her primary care physician in 1 week. Our plan is to resume the baby aspirin once she finishes the 10 day course of the low-dose meloxicam use for heterotopic ossification prophylaxis. Patient feels safe and comfortable to go home and we will plan to discharge her after recommendations for her blood pressure medications have been made by the hospitalist. Subjective Subjective Date/Time Seen: 03/14/25 07:36 Objective Data Vital Signs Vital Signs: Vital Signs - 24 hr 03/13/25 07:55 03/13/25 08:50 03/13/25 11:41 Temperature 35.8 C L 36.4 C L Pulse Rate 78 74 Respiratory Rate 18 17 Blood Pressure 135/72 113/58 L Pulse Oximetry 95 93 Oxygen Delivery Room Air 03/13/25 15:41 03/13/25 20:00 03/13/25 20:20 Temperature 36.1 C L 36.2 C L Pulse Rate 68 65 65 Respiratory Rate 16 16 16 Blood Pressure 115/64 113/60 Pulse Oximetry 94 95 95 Oxygen Delivery Room Air 03/14/25 05:00 Temperature 36.0 C L Pulse Rate 61 Respiratory Rate 16 Blood Pressure 110/54 L Pulse Oximetry 94 Oxygen Delivery Intake/Output Intake/Output: Intake & Output 03/11/25 03/12/25 03/13/25 03/14/25 23:59 23:59 23:59 23:59 Intake Total 590 1560 400 Output Total 1330 2550 Balance 590 230 -2150 Meds/Results Medications: Active Medications Generic Name Dose Route Start Last Admin Trade Name Freq PRN Reason Stop Dose Admin Acetaminophen 650 mg 03/12/25 18:00 03/14/25 06:00 Acetaminophen 325 Mg Tablet PO 650 mg Q6H YOJANA Administration Apixaban 2.5 mg 03/13/25 09:00 03/13/25 21:13 Apixaban 2.5 Mg Tablet PO 2.5 mg Q12HR YOJANA Administration Cefdinir 300 mg 03/13/25 18:00 03/14/25 06:00 Cefdinir 300 Mg Capsule PO 300 mg Q12H YOJANA Administration Sodium Chloride 1,000 mls @ 50 mls/hr 03/13/25 07:25 03/13/25 08:55 Normal Saline Iv IV CONT 50 mls/hr .Q20H YOJANA Administration Ipratropium [place] 2 spray 03/12/25 17:00 03/13/25 19:37 Ipratropium Nasal [place] 0.03% 15 Ml Bottle NASAL Not Given BID YOJANA Meloxicam 7.5 mg 03/13/25 09:00 03/13/25 08:53 Meloxicam 7.5 Mg Tablet PO 7.5 mg DAILY YOJANA Administration Naloxone HCl 0.1 mg 03/12/25 13:56 Naloxone Hcl 0.4 Mg/Ml Vial IV PUSH Q2M PRN Opiate Reversal Ondansetron HCl 4 mg 03/12/25 13:56 03/12/25 15:42 Ondansetron Inj 4 Mg/2 Ml Vial IV PUSH 4 mg Q4H PRN Administration Nausea And Vomiting Oxycodone HCl 2.5 mg 03/12/25 13:56 Oxycodone Hcl (*Crx) 2.5 Mg Tab Ir PO Q4H PRN Pain Rated 4-10 Pantoprazole Sodium 40 mg 03/13/25 09:00 03/13/25 07:30 Pantoprazole 40 Mg Tablet PO 40 mg QAM YOJANA Administration Polyethylene Glycol 17 gm 03/13/25 09:00 03/13/25 08:54 Polyethylene Glycol 3350 17 Gm Powd.Pack PO 17 gm QAM YOJANA Administration Saccharomyces Boulardii 250 mg 03/12/25 17:00 03/13/25 17:09 Saccharomyces Boulardii 250 Mg Capsule PO 250 mg BID YOJANA Administration Senna/Docusate Sodium 2 tab 03/12/25 17:00 03/13/25 17:09 Senna/Docusate Sodium Tablet PO 2 tab BID YOJANA Administration Thyroid 120 mg 03/13/25 06:30 03/14/25 06:00 Thyroid 30 Mg Tablet PO 120 mg DAILY@0630 YOJANA Administration Trimethoprim 100 mg 03/13/25 09:00 03/13/25 08:53 Trimethoprim 100 Mg Tablet PO 100 mg DAILY YOJANA Administration Vitamin B Complex 1 cap 03/13/25 09:00 03/13/25 08:53 Vitamin B Complex Capsule PO 1 cap DAILY YOJANA Administration Vitamin D 250 mcg 03/13/25 09:00 03/13/25 08:53 Cholecalciferol (Vitamin D3) 125 Mcg (5,000 Units) Tablet PO 250 mcg DAILY YOJANA Administration Radiology Results: ITS Impressions Intraoperative X-Ray 03/12/25 12:29 IMPRESSION: As above Hip X-Ray 03/12/25 13:15 Impression: No acute fracture or malalignment. Labs Labs: Laboratory Results - last 24 hr 03/14/25 05:06 WBC 13.8 H RBC 3.25 L Hgb 10.4 L Hct 30.7 L MCV 94.5 MCH 32.0 MCHC 33.9 RDW 12.2 Plt Count 197 MPV 9.3 Sodium 131 L Potassium 4.2 Chloride 100 Carbon Dioxide 29 Anion Gap 2 L BUN 16 Creatinine 0.74 Estim Creat Clear Calc 51 Estimated GFR > 60 Glucose 97 Calcium 9.0 Magnesium 1.9
[2025-03-14] MEDS: SENNA/DOCUSATE SODIUM TABLET 2 TAB PO ×2 (09:30→17:24)
[2025-03-14] MEDS: TRIMETHOPRIM 100 MG TABLET PO (09:30)
[2025-03-14] MEDS: PANTOPRAZOLE 40 MG TABLET PO (09:30)
[2025-03-14] MEDS: CHOLECALCIFEROL (VITAMIN D3) 125 MCG (5,000 UNITS) TABLET 250 MCG PO (09:30)
[2025-03-14] MEDS: MELOXICAM 7.5 MG TABLET PO (09:30)
[2025-03-14] MEDS: SACCHAROMYCES BOULARDII 250 MG CAPSULE PO ×2 (09:30→17:24)
[2025-03-14] MEDS: APIXABAN 2.5 MG TABLET PO ×2 (09:30→20:13)
[2025-03-14] MEDS: VITAMIN B COMPLEX CAPSULE 1 CAP PO (09:30)
--- NOTE | 2025-03-14 09:38 | P.PNIM_ITS ---
Progress Note: A&P Assessment and Plan (1) Status post right hip replacement: Code(s): Z96.641 - Presence of right artificial hip joint Status: Acute (2) Osteoarthritis, hip, bilateral: Qualifiers: Osteoarthritis type: primary Qualified Code(s): M16.0 - Bilateral primary osteoarthritis of hip Code(s): M16.0 - Bilateral primary osteoarthritis of hip Status: Acute (3) Hyponatremia: Code(s): E87.1 - Hypo-osmolality and hyponatremia Status: Acute (4) Atrial fibrillation: Code(s): I48.91 - Unspecified atrial fibrillation Status: Acute Plan Estefany Busby is a 79 year old female with history of OA of the hip s/p right hip replacement on 03/12, patient clinical symptoms are improving after the surgery however patient has mild hyponatremia post surgery most likely 2/2 dehydration due to being NPO prior to the surgery that's the for the consult, patient being gently hydrated will normal saline, will recheck patient sodium and further recommendation to follow, patient is clinically stable and will follow the patient with you. patient with history of palpitation and had been taking Diltiazem which one was on hold for the surgery however patient had an episode of what she described as indigestion and developed palpitation and shortness of breath and EKG showed A. Fib, patient was give her Diltiazem which did bring her rate down, patient is already taking Eliquis, will consult residential program director, will do cardiac echo, did speak with the patient and her , there are okay with staying and seeing residential program director. will monitor and plan. Subjective Date/time seen: 03/14/25 09:38 Interval history: Estefany Busby is a 79 year old female with history of OA of the hip s/p right hip replacement on 03/12, patient clinical symptoms are improving after the surgery however patient has mild hyponatremia post surgery most likely 2/2 dehydration due to being NPO prior to the surgery that's the for the consult, patient being gently hydrated will normal saline, will recheck patient sodium and further recommendation to follow, patient is clinically stable and will follow the patient with you. patient with history of palpitation and had been taking Diltiazem which one was on hold for the surgery however patient had an episode of what she described as indigestion and developed palpitation and shortness of breath and EKG showed A. Fib, patient was give her Diltiazem which did bring her rate down, patient is already taking Eliquis, will consult residential program director, will do cardiac echo, did speak with the patient and her , there are okay with staying and seeing residential program director. will monitor and plan. Review of Systems Review of Systems: All systems reviewed & are unremarkable except as noted in HPI and below Exam Narrative: Patient is comfortable, NAD HEENT: eyes are clear and none icteric LUNGS:CTA HEART: RR S1S2 ABD: BS+, Soft and nontender Lower extremities: no edema SKIN: nonjaundiced Neuro: grossly intact. Objective Data Vital Signs Vital Signs: Vital Signs - 24 hr 03/13/25 11:41 03/13/25 15:41 03/13/25 20:00 Temperature 36.4 C L 36.1 C L Pulse Rate 74 68 65 Respiratory Rate 17 16 16 Blood Pressure 113/58 L 115/64 Pulse Oximetry 93 94 95 Oxygen Delivery Room Air 03/13/25 20:20 03/14/25 05:00 03/14/25 09:25 Temperature 36.2 C L 36.0 C L Pulse Rate 65 61 Respiratory Rate 16 16 Blood Pressure 113/60 110/54 L Pulse Oximetry 95 94 Oxygen Delivery Room Air Intake/Output Intake/Output: Intake & Output 03/11/25 03/12/25 03/13/25 03/14/25 23:59 23:59 23:59 23:59 Intake Total 590 1560 640 Output Total 1330 2550 Balance 590 230 -1910 Meds/Results Medications: Active Medications Generic Name Dose Route Start Last Admin Trade Name Ericq PRN Reason Stop Dose Admin Acetaminophen 650 mg 03/12/25 18:00 03/14/25 06:00 Acetaminophen 325 Mg Tablet PO 650 mg Q6H YOJANA Administration Apixaban 2.5 mg 03/13/25 09:00 03/14/25 09:30 Apixaban 2.5 Mg Tablet PO 2.5 mg Q12HR YOJANA Administration Cefdinir 300 mg 03/13/25 18:00 03/14/25 06:00 Cefdinir 300 Mg Capsule PO 300 mg Q12H YOJANA Administration Ipratropium [place] 2 spray 03/12/25 17:00 03/13/25 19:37 Ipratropium Nasal [place] 0.03% 15 Ml Bottle NASAL Not Given BID [facility] Meloxicam 7.5 mg 03/13/25 09:00 03/14/25 09:30 Meloxicam 7.5 Mg Tablet PO 7.5 mg DAILY YOJANA Administration Naloxone HCl 0.1 mg 03/12/25 13:56 Naloxone Hcl 0.4 Mg/Ml Vial IV PUSH Q2M PRN Opiate Reversal Ondansetron HCl 4 mg 03/12/25 13:56 03/12/25 15:42 Ondansetron Inj 4 Mg/2 Ml Vial IV PUSH 4 mg Q4H PRN Administration Nausea And Vomiting Oxycodone HCl 2.5 mg 03/12/25 13:56 Oxycodone Hcl (*Crx) 2.5 Mg Tab Ir PO Q4H PRN Pain Rated 4-10 Pantoprazole Sodium 40 mg 03/13/25 09:00 03/14/25 09:30 Pantoprazole 40 Mg Tablet PO 40 mg QAM YOJANA Administration Polyethylene Glycol 17 gm 03/13/25 09:00 03/14/25 09:30 Polyethylene Glycol 3350 17 Gm Powd.Pack PO 17 gm QAM YOJANA Administration Saccharomyces Boulardii 250 mg 03/12/25 17:00 03/14/25 09:30 Saccharomyces Boulardii 250 Mg Capsule PO 250 mg BID YOJANA Administration Senna/Docusate Sodium 2 tab 03/12/25 17:00 03/14/25 09:30 Senna/Docusate Sodium Tablet PO 2 tab BID YOJANA Administration Thyroid 120 mg 03/13/25 06:30 03/14/25 06:00 Thyroid 30 Mg Tablet PO 120 mg DAILY@0630 YOJANA Administration Trimethoprim 100 mg 03/13/25 09:00 03/14/25 09:30 Trimethoprim 100 Mg Tablet PO 100 mg DAILY YOJANA Administration Vitamin B Complex 1 cap 03/13/25 09:00 03/14/25 09:30 Vitamin B Complex Capsule PO 1 cap DAILY YOJANA Administration Vitamin D 250 mcg 03/13/25 09:00 03/14/25 09:30 Cholecalciferol (Vitamin D3) 125 Mcg (5,000 Units) Tablet PO 250 mcg DAILY YOJANA Administration Radiology Results: ITS Impressions Intraoperative X-Ray 03/12/25 12:29 IMPRESSION: As above Hip X-Ray 03/12/25 13:15 Impression: No acute fracture or malalignment. Labs Labs: Laboratory Results - last 24 hr 03/14/25 05:06 WBC 13.8 H RBC 3.25 L Hgb 10.4 L Hct 30.7 L MCV 94.5 MCH 32.0 MCHC 33.9 RDW 12.2 Plt Count 197 MPV 9.3 Sodium 131 L Potassium 4.2 Chloride 100 Carbon Dioxide 29 Anion Gap 2 L BUN 16 Creatinine 0.74 Estim Creat Clear Calc 51 Estimated GFR > 60 Glucose 97 Calcium 9.0 Magnesium 1.9
--- NOTE | 2025-03-14 09:56 | ECG_ITS ---
Test Date: 2025-03-14 10:12:18 Measurements Intervals [place] Rate: 103 P: 0 VA: 0 QRS: 6 QRSD: 78 T: 31 QT: 307 QTc: 404 Interpretive Statements ATRIAL FIBRILLATION WITH RAPID VENTRICULAR RESPONSE LOW QRS VOLTAGE IN PRECORDIAL LEADS [QRS DEFLECTION < 1.0 mV IN CHEST LEADS] No previous ECG available for comparison Electronically Signed On 03-14-2025 13:21:33 [employer] by [facility] Tan M.D.
[2025-03-14] MEDS: dilTIAZem HCL CD 180 MG CAP.24HR PO (10:35)
[2025-03-14 11:02] LABS: Troponin I < 0.012 ng/mL (0.000-0.034)
[2025-03-14] MEDS: IPRATROPIUM NASAL SPRAY 0.03% 15 ML BOTTLE 2 SPRAY NASAL (17:26)
[2025-03-15] VITALS: PULSE 68
[2025-03-15 04:00] VITALS: PULSE 62
[2025-03-15 05:07] LABS: Hematocrit 31.1 % (37.0-47.0); Hemoglobin 10.3 g/dL (12.0-15.0); Mean Corpuscular HGB Conc 33.1 g/dl (32-36); Mean Corpuscular Hemoglobin 31.5 pg (26-34); Mean Corpuscular Volume 95.1 fl (80-100); Platelet Count Result 202 k/mm3 (150-375); Red Blood Count 3.27 M/mm3 (4.2-5.4); White Blood Count 9.5 K/mm3 (4.5-10.0)
[2025-03-15 05:36] LABS: Anion Gap 2 mmol/L (4-12); Blood Urea Nitrogen 14 mg/dL (7-17); Calcium 9.1 mg/dL (8.4-10.2); Carbon Dioxide 29 mmol/L (22-30); Chloride 100 mmol/L (98-107); Estimated CRCL calculation 53 ml/min; Estimated Glomerular Filt Rate > 60; Glucose 93 mg/dL (65-110); Magnesium 1.9 mg/dL (1.6-2.3); Potassium 4.2 mmol/L (3.4-5.0); Sodium 131 mmol/L (137-145)
[2025-03-15] MEDS: ACETAMINOPHEN 325 MG TABLET 650 MG PO (05:46)
[2025-03-15] MEDS: THYROID 30 MG TABLET 120 MG PO (05:47)
[2025-03-15] MEDS: CEFDINIR 300 MG CAPSULE PO (05:47)
[2025-03-15 05:48] VITALS: BP 115/70; PULSE 64; RESP 16; TEMP 37; O2SAT 96
[2025-03-15 08:00] VITALS: PULSE 59
--- NOTE | 2025-03-15 08:11 | PCPTNOTE ---
Attempted to see patient for PT, however patient in restroom and asked PT to come back later.
--- NOTE | 2025-03-15 08:35 | PM.CNCAR ---
Assessment and Plan Assessment and plan (1) Atrial fibrillation: Code(s): I48.91 - Unspecified atrial fibrillation Status: Acute Assessment and Plan: This is a new diagnosis. I discussed the diagnosis of atrial fibrillation including pathophysiology, management strategies, and risks/complications. Since the patient has spontaneously converted to sinus rhythm, no specific rhythm management is needed at this time. She already takes diltiazem. Regards to anticoagulation, since she had a brief episode in the setting of surgery, we will place a 30 day Holter monitor to evaluate for any recurrence of atrial arrhythmias. If she does have recurrence, would recommend anticoagulation for CVA risk reduction as she does have a CHADS2 Vasc score of 3. She had an echocardiogram performed that showed normal LV function with no significant valvular abnormalities. Okay for her to be discharged home from a cardiac standpoint today with placement of 30 day environmental monitoring specialist when she leaves the hospital. (2) HTN (hypertension): Code(s): I10 - Essential (primary) hypertension Status: Acute Assessment and Plan: Blood pressure is at goal. History of Present Illness History of Present Illness Consult date/time: 03/15/25 08:35 Requesting physician: Kana Gonsalves MD Consult reason: atrial fibrillation Reason For Visit: o A Rt Hip Narrative: Estefany Busby is an 79-year-old female with hypertension and paroxysmal SVT. This is a patient who is hospitalized following elective arthroplasty of the right hip. Cardiology is consulted for atrial fibrillation. She had a brief episode of atrial fibrillation yesterday morning lasting for about 30 minutes. She has since converted to sinus rhythm spontaneously. She did not feel any palpitations, chest pain, shortness of breath. To her knowledge she has not had any arrhythmias in the past. She does not have any significant cardiac history but she does mention that she has hypertension. At the time of my evaluation she has just finished ambulating in the hallway and feels very well-does not have any active complaints at this time and is eager to be discharged. Review of Systems Review of Systems: All systems reviewed & are unremarkable except as noted in HPI and below PMFSH Past Medical History Medical History Change in bowel habits Gas bloat syndrome COVID-19 Osteopenia Gastroesophageal reflux disease Hypothyroidism (acquired) Mixed hyperlipidemia Primary osteoarthritis of both hands Pulmonary emphysema History of vaginal delivery x 2 Back pain Surgical History Surgical History History of bladder surgery History of bilateral tubal ligation H/O total hysterectomy with bilateral salpingo-oophorectomy (BSO) History of back surgery History of appendectomy Family History Family History Mother Hypertension Family history of elevated blood lipids Family history of malignant neoplasm of breast in first degree relative Family history of malignant neoplasm of ovary Patient's mother is Family history of hypercholesterolemia, Onset Age: 93 Family history of gastrointestinal disorder, Onset Age: 93 Grandparent Family history of liver disease, Onset Age: 74 Family history of malignant neoplasm of esophagus, Onset Age: 83 Family history of type 2 diabetes mellitus Family history of heart disease in male family member before age 55 Diabetes mellitus, Onset Age: 77 Cerebrovascular accident, Onset Age: 77 Sibling Family history of malignant neoplasm of breast in first degree relative Patient's sister is Family history of hypercholesterolemia Hypertension Patient's sister is in good health Father Family history of type 2 diabetes mellitus, Onset Age: 77 Family history of heart disease in male family member before age 55, Onset Age: 77 Patient's father is , Onset Age: 77 Diabetes mellitus Family history of cardiovascular disease, Onset Age: 77 Hypertension Social History Social History Social History: Caffeine-occasionally Smoking status: Never smoker Second hand tobacco smoke exposure: No Alcohol intake: current Drinks per week: 1 Alcohol use details: occasionally Substance use: never Substance use type: does not use Do You Feel Safe in your Home?: Yes Lack of Transportation: No Lack of Food: Never True Current Housing: I Have Housing Concerned About Future Housing: No Difficulty Paying Gas/Electric Bills: No Difficulty Paying for Meds: No Currently Unemployed: No Education: Bachelor's Degree Difficulty w/ Childcare or Family Care: No Living arrangements: with family [facility] concerns: No Meds Home Medications and Allergies Home Medications ?Medication ?Instructions ?Recorded ?Confirmed ?Type Bifidobacterium infantis 4 mg 4 mg PO DAILY 03/28/19 03/12/25 History capsule (Align (B.infantis)) Saccharomyces boulardii 250 mg 250 mg PO BID 03/28/19 03/12/25 History capsule ascorbic acid (vitamin C) 500 mg 500 mg PO Q12H 03/28/19 03/12/25 History capsule,extended release (Vitamin C) d-mannose 1,000 mg PO BID 03/28/19 03/12/25 History diltiazem HCl 180 mg 180 mg PO DAILY 03/28/19 03/12/25 History capsule,extended release 24 hr, controlled (DILT-XR) testosterone 1 dose topical DAILY 03/28/19 03/12/25 History vitamin B complex (B 1 tablet PO DAILY 08/12/20 03/12/25 History Complex-Vitamin B12 tablet) ipratropium bromide 21 mcg (0.03 2 spray intranasal BID PRN allergy 04/07/23 03/12/25 History %) nasal spray symptoms digestive enzymes 1 cap PO BID 05/11/23 03/12/25 History progesterone micronized 100 mg 300 mg PO QAM 11/23/23 03/12/25 History capsule Held on 03/15/25. Instructions: Resume on 04/19/25. esomeprazole magnesium 40 mg See Rx Instructions .Route 05/15/24 03/12/25 Rx capsule,delayed release .COMPLEX #90 caps perfluorohexyloctane (PF) 100 % 1 drp EACH EYE QID 08/29/24 03/12/25 History eye drops (Miebo (PF)) Thyroid 1 cap PO DAILY 12/13/24 03/12/25 History mirabegron 50 mg tablet,extended 50 mg PO DAILY 12/13/24 03/12/25 History release 24 hr trimethoprim 100 mg tablet 100 mg PO DAILY 12/13/24 03/12/25 History acetaminophen 650 mg 1,300 mg PO Q8H PRN pain 02/15/25 02/15/25 History tablet,extended release (8 Hour Pain Reliever) aspirin 81 mg tablet,delayed 81 mg PO DAILY 02/15/25 03/12/25 History release (Adult Low Dose Aspirin) cholecalciferol (vitamin D3) 250 250 mcg PO DAILY 02/15/25 03/12/25 History mcg (10,000 unit) capsule estradiol 2 mg tablet 2.5 mg PO DAILY 02/15/25 03/12/25 History Held on 03/15/25. Instructions: Resume on 04/19/25. estradiol-testosterone 0.5 supp vaginal 3XW 02/15/25 03/12/25 History spironolactone 50 mg tablet 50 mg PO QAM 02/15/25 03/12/25 History apixaban 2.5 mg tablet (Eliquis) 2.5 mg PO Q12HR #60 tabs 03/15/25 Rx cefdinir 300 mg capsule 300 mg PO Q12H #10 caps 03/15/25 Rx meloxicam 7.5 mg tablet 7.5 mg PO DAILY #5 tabs 03/15/25 Rx polyethylene glycol 3350 17 gram 17 g PO QAM #30 ea 03/15/25 Rx oral powder packet (Miralax) sennosides 8.6 mg-docusate sodium 2 tab PO BID #30 tabs 03/15/25 Rx 50 mg tablet (Senokot-S) Allergies Allergy/AdvReac Type Severity Reaction Status Date / Time mold Allergy Unknown Congested Verified 03/12/25 14:16 lactose AdvReac Unknown Diarrhea Verified 03/12/25 14:16 Vital Signs Vital Signs - 24 hr 03/14/25 09:25 03/14/25 09:59 03/14/25 12:00 Temperature 36.4 C Pulse Rate 115 H 79 Respiratory Rate 16 Blood Pressure 151/70 H Pulse Oximetry 95 Oxygen Delivery Room Air Room Air 03/14/25 13:49 03/14/25 16:00 03/14/25 20:00 Temperature 36.2 C L Pulse Rate 82 80 Respiratory Rate 16 Blood Pressure 105/56 L Pulse Oximetry 95 Oxygen Delivery Room Air 03/14/25 20:00 03/14/25 20:23 03/15/25 00:00 Temperature 36.7 C Pulse Rate 70 75 68 Respiratory Rate 16 Blood Pressure 104/52 L Pulse Oximetry 95 Oxygen Delivery 03/15/25 04:00 03/15/25 05:48 Temperature 37.0 C Pulse Rate 62 64 Respiratory Rate 16 Blood Pressure 115/70 Pulse Oximetry 96 Oxygen Delivery Exam Const: General: comfortable, no acute distress, alert and awake Orientation/consciousness: patient oriented x3 HENMT: Head: normal to inspection Eyes: General: appearance normal, both eyes and all related structures Pupils: Equal, round and reactive pupils present Neck: Neck: normal visual inspection, supple and no JVD Carotids: normal carotid upstroke Resp: Effort & Inspection: normal respiratory effort Auscultation: clear to auscultation bilaterally Cardio: Rate: regular rate Rhythm: regular rhythm Heart sounds: S1 normal heart sound present, S2 normal heart sound present and no murmurs GI: Auscultation: normal bowel sounds Skin: General skin exam: normal color Neuro: General: patient oriented x3 Cranial nerves: Yes Equal, round and reactive pupils present Extrem: General: normal to inspection Psych: Appearance: grossly normal Mental Status: mental status grossly normal Results Labs and Meds 03/15/25 04:48 03/15/25 04:48 Lab results: Cardiac Enzymes 03/14/25 Range/Units 10:28 Troponin I < 0.012 (0.000-0.034) ng/mL CBC 03/15/25 Range/Units 04:48 WBC 9.5 (4.5-10.0) K/mm3 RBC 3.27 L (4.2-5.4) M/mm3 Hgb 10.3 L (12.0-15.0) g/dL Hct 31.1 L (37.0-47.0) % Plt Count 202 (150-375) k/mm3 Comprehensive Metabolic Panel 03/15/25 Range/Units 04:48 Sodium 131 L (137-145) mmol/L Potassium 4.2 (3.4-5.0) mmol/L Chloride 100 (98-107) mmol/L Carbon Dioxide 29 (22-30) mmol/L BUN 14 (7-17) mg/dL Creatinine 0.71 (0.7-1.0) mg/dL Glucose 93 (65-110) mg/dL Calcium 9.1 (8.4-10.2) mg/dL Intake and Output 03/14/25 03/15/25 03/15/25 23:59 07:59 15:59 Intake Total 240 500 Balance 240 500 Intake: Oral 240 500 Other: # Unmeasured Voids 6 5 Number of Bowel Movements Today 1 0
--- NOTE | 2025-03-15 09:48 | P.PNIM_ITS ---
Progress Note: A&P Assessment and Plan (1) Status post right hip replacement: Code(s): Z96.641 - Presence of right artificial hip joint Status: Acute (2) Osteoarthritis, hip, bilateral: Qualifiers: Osteoarthritis type: primary Qualified Code(s): M16.0 - Bilateral primary osteoarthritis of hip Code(s): M16.0 - Bilateral primary osteoarthritis of hip Status: Acute (3) Hyponatremia: Code(s): E87.1 - Hypo-osmolality and hyponatremia Status: Acute (4) Atrial fibrillation: Code(s): I48.91 - Unspecified atrial fibrillation Status: Acute Plan Estefany Busby is a 79 year old female with history of OA of the hip s/p right hip replacement on 03/12, patient clinical symptoms are improving after the surgery however patient has mild hyponatremia post surgery most likely 2/2 dehydration due to being NPO prior to the surgery that's the for the consult, patient being gently hydrated will normal saline, will recheck patient sodium and further recommendation to follow, patient is clinically stable and will follow the patient with you. patient with history of palpitation and had been taking Diltiazem which one was on hold for the surgery however patient had an episode of what she described as indigestion and developed palpitation and shortness of breath and EKG showed A. Fib, patient was give her Diltiazem which did bring her rate down, patient is already taking Eliquis, will consult automobile assembly supervisor, will do cardiac echo, did speak with the patient and her , there are okay with staying and seeing automobile assembly supervisor. will monitor and plan. Today patient remains stable, her HR is close to normal, seen by automobile assembly supervisor, will have event monitor as outpatient, and follow in automobile assembly supervisor clinic. patient s/p Right hip replacement doing well and the orthopedic services has discharge the patient today. Subjective Date/time seen: 03/15/25 09:48 Interval history: Estefany Busby is a 79 year old female with history of OA of the hip s/p right hip replacement on 03/12, patient clinical symptoms are improving after the surgery however patient has mild hyponatremia post surgery most likely 2/2 dehydration due to being NPO prior to the surgery that's the for the consult, patient being gently hydrated will normal saline, will recheck patient sodium and further recommendation to follow, patient is clinically stable and will foll ow the patient with you. patient with history of palpitation and had been taking Diltiazem which one was on hold for the surgery however patient had an episode of what she described as indigestion and developed palpitation and shortness of breath and EKG showed A. Fib, patient was give her Diltiazem which did bring her rate down, patient is already taking Eliquis, will consult automobile assembly supervisor, will do cardiac echo, did speak with the patient and her , there are okay with staying and seeing automobile assembly supervisor. will monitor and plan. Today patient remains stable, her HR is close to normal, seen by automobile assembly supervisor, will have event monitor as outpatient, and follow in automobile assembly supervisor clinic. patient s/p Right hip replacement doing well and the orthopedic services has discharge the patient today. Review of Systems Review of Systems: All systems reviewed & are unremarkable except as noted in HPI and below Exam Narrative: Patient is comfortable, NAD HEENT: eyes are clear and none icteric LUNGS:CTA HEART: RR S1S2 ABD: BS+, Soft and nontender Lower extremities: no edema SKIN: nonjaundiced Neuro: grossly intact. Objective Data Vital Signs Vital Signs: Vital Signs - 24 hr 03/14/25 09:59 03/14/25 12:00 03/14/25 13:49 Temperature 36.4 C 36.2 C L Pulse Rate 115 H 79 82 Respiratory Rate 16 16 Blood Pressure 151/70 H 105/56 L Pulse Oximetry 95 95 Oxygen Delivery Room Air 03/14/25 16:00 03/14/25 20:00 03/14/25 20:00 Temperature Pulse Rate 80 70 Respiratory Rate Blood Pressure Pulse Oximetry Oxygen Delivery Room Air 03/14/25 20:23 03/15/25 00:00 03/15/25 04:00 Temperature 36.7 C Pulse Rate 75 68 62 Respiratory Rate 16 Blood Pressure 104/52 L Pulse Oximetry 95 Oxygen Delivery 03/15/25 05:48 Temperature 37.0 C Pulse Rate 64 Respiratory Rate 16 Blood Pressure 115/70 Pulse Oximetry 96 Oxygen Delivery Intake/Output Intake/Output: Intake & Output 03/12/25 03/13/25 03/14/25 03/15/25 23:59 23:59 23:59 23:59 Intake Total 590 1560 1120 740 Output Total 1330 2550 Balance 590 230 -1430 740 Meds/Results Medications: Active Medications Generic Name Dose Route Start Last Admin Trade Name Freq PRN Reason Stop Dose Admin Acetaminophen 650 mg 03/12/25 18:00 03/15/25 05:46 Acetaminophen 325 Mg Tablet PO 650 mg Q6H YOJANA Administration Apixaban 2.5 mg 03/13/25 09:00 03/14/25 20:13 Apixaban 2.5 Mg Tablet PO 2.5 mg Q12HR YOJANA Administration Cefdinir 300 mg 03/13/25 18:00 03/15/25 05:47 Cefdinir 300 Mg Capsule PO 300 mg Q12H YOJANA Administration Diltiazem HCl 180 mg 03/14/25 10:22 03/14/25 10:35 Diltiazem Hcl Cd 180 Mg Cap.24hr PO 180 mg QAM YOJANA Administration Ipratropium [place] 2 spray 03/12/25 17:00 03/14/25 17:26 Ipratropium Nasal [place] 0.03% 15 Ml Bottle NASAL 2 spray BID YOJANA Administration Meloxicam 7.5 mg 03/13/25 09:00 03/14/25 09:30 Meloxicam 7.5 Mg Tablet PO 7.5 mg DAILY YOJANA Administration Naloxone HCl 0.1 mg 03/12/25 13:56 Naloxone Hcl 0.4 Mg/Ml Vial IV PUSH Q2M PRN Opiate Reversal Ondansetron HCl 4 mg 03/12/25 13:56 03/12/25 15:42 Ondansetron Inj 4 Mg/2 Ml Vial IV PUSH 4 mg Q4H PRN Administration Nausea And Vomiting Oxycodone HCl 2.5 mg 03/12/25 13:56 Oxycodone Hcl (*Crx) 2.5 Mg Tab Ir PO Q4H PRN Pain Rated 4-10 Pantoprazole Sodium 40 mg 03/13/25 09:00 03/14/25 09:30 Pantoprazole 40 Mg Tablet PO 40 mg QAM YOJANA Administration Perflutren Lipid Microsphere 0 ml 03/14/25 15:29 Perflutren Lipid Microspheres 1.5 Ml Vial Diluted To 10 Ml Total Volume IV PUSH 03/17/25 15:29 ONCE PRN adequate visualization Protocol Polyethylene Glycol 17 gm 03/13/25 09:00 03/14/25 09:30 Polyethylene Glycol 3350 17 Gm Powd.Pack PO 17 gm QAM YOJANA Administration Saccharomyces Boulardii 250 mg 03/12/25 17:00 03/14/25 17:24 Saccharomyces Boulardii 250 Mg Capsule PO 250 mg BID YOJANA Administration Senna/Docusate Sodium 2 tab 03/12/25 17:00 03/14/25 17:24 Senna/Docusate Sodium Tablet PO 2 tab BID YOJANA Administration Thyroid 120 mg 03/13/25 06:30 03/15/25 05:47 Thyroid 30 Mg Tablet PO 120 mg DAILY@0630 YOJANA Administration Trimethoprim 100 mg 03/13/25 09:00 03/14/25 09:30 Trimethoprim 100 Mg Tablet PO 100 mg DAILY YOJANA Administration Vitamin B Complex 1 cap 03/13/25 09:00 03/14/25 09:30 Vitamin B Complex Capsule PO 1 cap DAILY YOJANA Administration Vitamin D 250 mcg 03/13/25 09:00 03/14/25 09:30 Cholecalciferol (Vitamin D3) 125 Mcg (5,000 Units) Tablet PO 250 mcg DAILY YOJANA Administration Radiology Results: ITS Impressions Intraoperative X-Ray 03/12/25 12:29 IMPRESSION: As above Hip X-Ray 03/12/25 13:15 Impression: No acute fracture or malalignment. Labs Labs: Laboratory Results - last 24 hr 03/14/25 03/15/25 10:28 04:48 WBC 9.5 RBC 3.27 L Hgb 10.3 L Hct 31.1 L MCV 95.1 MCH 31.5 MCHC 33.1 RDW 12.5 Plt Count 202 MPV 9.2 Sodium 131 L Potassium 4.2 Chloride 100 Carbon Dioxide 29 Anion Gap 2 L BUN 14 Creatinine 0.71 Estim Creat Clear Calc 53 Estimated GFR > 60 Glucose 93 Calcium 9.1 Magnesium 1.9 Troponin I < 0.012
[2025-03-15] MEDS: dilTIAZem HCL CD 180 MG CAP.24HR PO (09:53)
[2025-03-15] MEDS: PANTOPRAZOLE 40 MG TABLET PO (09:53)
[2025-03-15] MEDS: MELOXICAM 7.5 MG TABLET PO (09:53)
[2025-03-15] MEDS: SACCHAROMYCES BOULARDII 250 MG CAPSULE PO (09:53)
[2025-03-15] MEDS: APIXABAN 2.5 MG TABLET PO (09:53)
[2025-03-15] MEDS: TRIMETHOPRIM 100 MG TABLET PO (09:53)
[2025-03-15] MEDS: IPRATROPIUM NASAL SPRAY 0.03% 15 ML BOTTLE 2 SPRAY NASAL (09:54)
--- NOTE | 2025-03-15 10:49 | P.PNOP_ITS ---
Subjective Subjective Date/Time Seen: 03/15/25 10:49 Interval history: Postop day 2 patient is alert. Afebrile vital signs are stable. Patient is back in sinus rhythm. She did have her echo yesterday. Report is not in her chart but cardiology did see it and spoke with the patient. There was no concerns with regard to any findings on the echo. The have recommended that she wear a Holter monitor at home and this is been set up for her by cardiology. I have called cardiology just to clarify that they are comfortable with her going home on the 2.5 Eliquis at this point. Patient's hemoglobin this morning is stable at 10.3. There was no change from yesterday. Patient has pain overall is very well controlled. Dressing is dry and intact. Patient is anxious to go home. She feels very good overall. Objective Data Vital Signs Vital Signs: Vital Signs - 24 hr 03/14/25 12:00 03/14/25 13:49 03/14/25 16:00 Temperature 97.2 F L Pulse Rate 79 82 80 Respiratory Rate 16 Blood Pressure 105/56 L Pulse Oximetry 95 Oxygen Delivery 03/14/25 20:00 03/14/25 20:00 03/14/25 20:23 Temperature 98.0 F Pulse Rate 70 75 Respiratory Rate 16 Blood Pressure 104/52 L Pulse Oximetry 95 Oxygen Delivery Room Air 03/15/25 00:00 03/15/25 04:00 03/15/25 05:48 Temperature 98.6 F Pulse Rate 68 62 64 Respiratory Rate 16 Blood Pressure 115/70 Pulse Oximetry 96 Oxygen Delivery Intake/Output Intake/Output: Intake & Output 03/12/25 03/13/25 03/14/25 03/15/25 23:59 23:59 23:59 23:59 Intake Total 590 1560 1120 740 Output Total 1330 2550 Balance 590 230 -1430 740 Meds/Results Medications: Active Medications Generic Name Dose Route Start Last Admin Trade Name Freq PRN Reason Stop Dose Admin Acetaminophen 650 mg 03/12/25 18:00 03/15/25 05:46 Acetaminophen 325 Mg Tablet PO 650 mg Q6H YOJANA Administration Apixaban 2.5 mg 03/13/25 09:00 03/15/25 09:53 Apixaban 2.5 Mg Tablet PO 2.5 mg Q12HR YOJANA Administration Cefdinir 300 mg 03/13/25 18:00 03/15/25 05:47 Cefdinir 300 Mg Capsule PO 300 mg Q12H YOJANA Administration Diltiazem HCl 180 mg 03/14/25 10:22 03/15/25 09:53 Diltiazem Hcl Cd 180 Mg Cap.24hr PO 180 mg QAM YOJANA Administration Ipratropium [place] 2 spray 03/12/25 17:00 03/15/25 09:54 Ipratropium Nasal [place] 0.03% 15 Ml Bottle NASAL 2 spray BID YOJANA Administration Meloxicam 7.5 mg 03/13/25 09:00 03/15/25 09:53 Meloxicam 7.5 Mg Tablet PO 7.5 mg DAILY YOJANA Administration Naloxone HCl 0.1 mg 03/12/25 13:56 Naloxone Hcl 0.4 Mg/Ml Vial IV PUSH Q2M PRN Opiate Reversal Ondansetron HCl 4 mg 03/12/25 13:56 03/12/25 15:42 Ondansetron Inj 4 Mg/2 Ml Vial IV PUSH 4 mg Q4H PRN Administration Nausea And Vomiting Oxycodone HCl 2.5 mg 03/12/25 13:56 Oxycodone Hcl (*Crx) 2.5 Mg Tab Ir PO Q4H PRN Pain Rated 4-10 Pantoprazole Sodium 40 mg 03/13/25 09:00 03/15/25 09:53 Pantoprazole 40 Mg Tablet PO 40 mg QAM YOJANA Administration Perflutren Lipid Microsphere 0 ml 03/14/25 15:29 Perflutren Lipid Microspheres 1.5 Ml Vial Diluted To 10 Ml Total Volume IV PUSH 03/17/25 15:29 ONCE PRN adequate visualization Protocol Polyethylene Glycol 17 gm 03/13/25 09:00 03/15/25 09:54 Polyethylene Glycol 3350 17 Gm Powd.Pack PO Not Given QAM YOJANA Saccharomyces Boulardii 250 mg 03/12/25 17:00 03/15/25 09:53 Saccharomyces Boulardii 250 Mg Capsule PO 250 mg BID YOJANA Administration Senna/Docusate Sodium 2 tab 03/12/25 17:00 03/15/25 09:51 Senna/Docusate Sodium Tablet PO Not Given BID YOJANA Thyroid 120 mg 03/13/25 06:30 03/15/25 05:47 Thyroid 30 Mg Tablet PO 120 mg DAILY@0630 YOJANA Administration Trimethoprim 100 mg 03/13/25 09:00 03/15/25 09:53 Trimethoprim 100 Mg Tablet PO 100 mg DAILY YOJANA Administration Vitamin B Complex 1 cap 03/13/25 09:00 03/15/25 09:52 Vitamin B Complex Capsule PO Not Given DAILY [facility] Vitamin D 250 mcg 03/13/25 09:00 03/15/25 09:54 Cholecalciferol (Vitamin D3) 125 Mcg (5,000 Units) Tablet PO Not Given DAILY [facility] Radiology Results: ITS Impressions Intraoperative X-Ray 03/12/25 12:29 IMPRESSION: As above Hip X-Ray 03/12/25 13:15 Impression: No acute fracture or malalignment. Labs Labs: Laboratory Results - last 24 hr 03/14/25 03/15/25 10:28 04:48 WBC 9.5 RBC 3.27 L Hgb 10.3 L Hct 31.1 L MCV 95.1 MCH 31.5 MCHC 33.1 RDW 12.5 Plt Count 202 MPV 9.2 Sodium 131 L Potassium 4.2 Chloride 100 Carbon Dioxide 29 Anion Gap 2 L BUN 14 Creatinine 0.71 Estim Creat Clear Calc 53 Estimated GFR > 60 Glucose 93 Calcium 9.1 Magnesium 1.9 Troponin I < 0.012
--- NOTE | 2025-03-19 12:02 | PM.DS ---
DS: Admitting Diagnosis Discharge Date 03/15/25 Admitting Diagnosis Right hip DJD DS: Discharge Diagnosis Discharge Diagnosis (1) Status post right hip replacement: Code(s): Z96.641 - Presence of right artificial hip joint Status: Acute DS: Summary Hospital Course Hospital Course: 80 female underwent right anterior total hip arthroplasty on 02/10. Patient with the procedure without complications. Postoperatively her blood pressure was soft and therefore her spiralatone and diltiazem was held. Patient was up the day of surgery walking she is full weight-bearing. She is having minimal discomfort. Patient was seen on the morning of postop day 1 that time she did very well. She was refusing narcotics for pain. She states that the Tylenol was doing fine. She was started on Eliquis 2.5 mg. When she was seen early in the morning on 03/14 patient was doing very well and was planning on going home. Hospitalist saw her a little later that morning and patient had episode of palpitations. EKG was done she was found to be in AFib with RVR. Echocardiogram was ordered from the hospitalist. Cardiology was consulted. Patient's diltiazem was restarted and a shortly after taking that her rate decreased and she went back to normal sinus rhythm. Patient went through her echocardiogram and there was no significant findings. Cardiology did see her and felt that she was stable and cleared to go home on 03/15. 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 Patient is on Eliquis 2.5 mg b.i.d. for DVT prophylaxis and will continue that for 5 weeks. She is on a low-dose meloxicam for a week and then she will stop that and restart her baby aspirin at that time. She will go home with 1 week of antibiotics. She is only going to take Tylenol when she goes home, she refused narcotics. Patient's hemoglobin on postop day 1 and day 2 was 10.3 so she was stable. Sodium slightly low but patient was asymptomatic. Patient's drain and was taken out morning of postop day 1. Her incision and dressing remained dry. Patient was advised any questions or concerns when she goes home she has call the office otherwise we will see her at her appointed dates Time Spent with Patient Time attestation: Total time spent providing and/or coordinating discharge services: Discharge Plan Discharge Attending physician on discharge: Tejas Larsen Consulting providers: Home Tan; Kana Gonsalves; Stefania Brown; Darrin Bower; Rustam Rashid; Renny Valdes; Gurwinder Conrad; Terrance Mosher Discharging Clinician: Tejas Larsen Anticipated Discharge Date/Time: 03/14/25 15:00 Patient Disposition: Home Activity: may shower and as tolerated Diet: regular Wound Care Instructions: follow printed instructions Discharge Instructions: TEJAS LARSEN M.D [facility] [address] [address] [address] [place] [address] POST-OPERATIVE DISCHARGE INSTRUCTIONS ANTERIOR TOTAL HIP ARTHROPLASTY 1. Move toes/feet up and down every hour while awake. 2. Be up walking every hour while awake. 3. Use walker radio time salesperson if instructed to use walker radio time salesperson.When you are allowed to use the cane, use the cane in the opposite hand. 4. When resting, do not rest in the chair. Rather, lie on your back, with back flat, and the leg elevated above heart to minimize swelling. You may put a pillow under your head. Do not rest in a chair. Resting in the chair results in swelling in the leg. Significant swelling could indicate a blood clot and if this occurs, call the office (or go to the ER) to have a venous ultrasound performed. Its ok to sit in the chair to eat and use the toilet and to receive a guest but sitting in a chair will cause your leg to swell. so try to minimize sitting in a chair. 5. Follow weight bearing status as instructed: Full weight-bearing as comfortable using the walker radio time salesperson for balance. 6. May shower. Remove dressing before shower and reapply dressing after shower. 7. Use incentive spirometer every hour while awake during the first week to fully expand your lungs. 8. Wound Care: Apply a folded 4x4 sponge to incision and hold with crossing strips of 1 inch Transpore tape. 9. We are having you take your low-dose meloxicam 7.5 mg once daily for another 6 days. On the morning following your last dose of meloxicam, you may resume your normal enteric coated 81 mg baby aspirin daily that she normally take. 10. You had an episode where your heart rate went up to 115 and was associated with what appeared to be a short run of atrial fibrillation on the EKG. After restarting your diltiazem that quickly resolved. You felt heartburn and your heartburn may be caused by having rapid heart rate. You do have a history of palpitations in the past and the diltiazem has controlled that and hopefully it will continue to control that. If you have recurrent episodes of palpitations, I would call your wind farm operations manager Dr Hunter and if he cannot see you right away such as on a weekend, you should go to the emergency room because a sustained higher heart rate at your age is a significant strain on the heart. 11. We have the spironolactone on hold. Once her blood pressure becomes higher such as above 135 or 140 systolic on a more consistent basis, it would be appropriate to restart that. Your blood pressure is in the 105-115 range systolic currently so you do not need another medication to lower your blood pressure because it is low enough now. You may wish to check her blood pressure every day. I would recommend following up with your primary care physician in 1 week. Your blood pressure may have returned to normal as your hemoglobin starts to return to normal level for you. You have mild anemia now which is typical after a hip replacement but you normally have an elevated hemoglobin level likely due to the testosterone so your body is used to a higher level of blood. Patient Instructions: Antibiotic Form, Apixaban (By mouth) Patient Language: Albanian Stand Alone Forms: General Discharge Information Follow-up/Referrals: Luther Gilmore MD [Primary Care Provider, Family Practice] Tejas Larsen MD [Physician, Orthopedics] Discharge Medications: New polyethylene glycol 3350 [Miralax] 17 gram Powder In Packet 17 g PO QAM Qty: 30 0RF sennosides-docusate sodium [Senokot-S] 8.6-50 mg Tablet 2 tab PO BID Qty: 30 0RF cefdinir 300 mg Capsule 300 mg PO Q12H Qty: 10 0RF Eliquis 2.5 mg Tablet 2.5 mg PO Q12HR Qty: 60 0RF meloxicam 7.5 mg tablet 7.5 mg PO DAILY Qty: 5 0RF Continued vitamin B complex [B Complex-Vitamin B12] Tablet 1 tablet PO DAILY [place] (PF) 100 % drops 1 drp EACH EYE QID mirabegron 50 mg tablet extended release 24 hr 50 mg PO DAILY trimethoprim 100 mg tablet 100 mg PO DAILY Patient Comments: QAM Thyroid 1 cap PO DAILY Rx Instructions: Pt states 2 Grain QAM ipratropium bromide 21 mcg (0.03 %) spray,non-aerosol 2 spray intranasal BID PRN (Reason: allergy symptoms) Rx Instructions: administer into each nostril diltiazem HCl [DILT-XR] 180 mg capsule,ext.rel 24h degradable 180 mg PO DAILY Patient Comments: QAM d-mannose 1,000 mg PO BID testosterone 1 dose topical DAILY Rx Instructions: 50MG CREAM APPLY DAILY ascorbic acid (vitamin C) [Vitamin C] 500 mg Capsule, Extended Release 500 mg PO Q12H Saccharomyces boulardii 250 mg Capsule 250 mg PO BID Align (B.infantis) 4 mg Capsule 4 mg PO DAILY digestive enzymes Capsule 1 cap PO BID spironolactone 50 mg tablet 50 mg PO QAM estradiol-testosterone 0.5 supp vaginal 3XW Rx Instructions: 0.2MG VAGINAL SUPP- INSERT 1/2 SUPP 3X/WEEK cholecalciferol (vitamin D3) 250 mcg (10,000 unit) capsule 250 mcg PO DAILY aspirin [Adult Low Dose Aspirin] 81 mg tablet,delayed release (DR/EC) 81 mg PO DAILY acetaminophen [8 Hour Pain Reliever] 650 mg tablet extended release 1,300 mg PO Q8H PRN (Reason: pain) esomeprazole magnesium 40 mg capsule,delayed release(DR/EC) See Rx Instructions .ROUTE .COMPLEX Qty: 90 3RF Dose Instruction: TAKE 1 CAPSULE BY MOUTH DAILY Rx Instructions: TAKE 1 CAPSULE BY MOUTH DAILY Held progesterone micronized 100 mg capsule 300 mg PO QAM Hold Instructions: Resume on 04/19/25. estradiol 2 mg tablet 2.5 mg PO DAILY Hold Instructions: Resume on 04/19/25. Rx Instructions: COMPOUNED- DAILY Discontinued meloxicam 7.5 mg tablet 7.5 mg PO DAILY Qty: 30 1RF Other Ambulatory Orders: [place] cardiac event monitor (Routine) Timeframe: 1 Month Location: [facility] [place] Cardiology Ordered By: Stefania Brown Date of admission: 03/13/25 07:31 Primary Care Provider: Hill,Luther B. Admitting Provider: Tejas Larsen Attending physician on admission: Tejas Larsen Condition: Stable
== END 2025-03-15 11:45 | disposition home or self-care (01) | DRG 470 ==
LOC: ANHSURGERY 07:35 → ANH3MEDSUR 07:35
PROVIDERS: Family Medicine; Admitting Provider Orthopaedic Surgery; PCP Family Medicine; Visit Provider Orthopaedic Surgery
PROC: 0SR904A Replacement of Right Hip Joint with Ceramic on Polyethylene Synthetic Substitute, Uncemented, Open Approach (ICD-10-PCS; CPT 27130; principal; 2025-03-12 07:30)
DX: M16.11 Unilateral primary osteoarthritis, right hip (principal); E87.1 Hypo-osmolality and hyponatremia; D62 Acute posthemorrhagic anemia; T38.7X5A Adverse effect of androgens and anabolic congeners, initial encounter; Q65.89 Other specified congenital deformities of hip; K21.9 Gastro-esophageal reflux disease without esophagitis; E78.2 Mixed hyperlipidemia; E03.9 Hypothyroidism, unspecified; E86.0 Dehydration; I48.91 Unspecified atrial fibrillation; I10 Essential (primary) hypertension; M19.042 Primary osteoarthritis, left hand; M19.041 Primary osteoarthritis, right hand; M85.80 Other specified disorders of bone density and structure, unspecified site; Z90.49 Acquired absence of other specified parts of digestive tract; Z90.710 Acquired absence of both cervix and uterus; Z90.722 Acquired absence of ovaries, bilateral
CPT/HCPCS: 36415; 73502; 80048; 83735; 84484; 85025; 85027; 86850; 86900; 86901; 93005; 93306; 97110; 97161; 97166; 97530; 97535; 99199; J0690; A9270; C1776; J0166; J0330; J1100; J1171; J1596; J1885; J2003; J2270; J2371; J2405; J2704; J2795; J3010; J3290; J3373; J7030; J7050; J7120